=== PATIENT | female | born 1995 | race Caucasian/White ===

== ENCOUNTER → 2020-12-06 | Outpatient (CLI) | payer MEDICAID, SELFPAY | END | disposition home or self-care (01) | LOC: LABSPEC 14:54 | PROVIDERS: PCP Internal Medicine; Referring Provider Physician Assistant Surgical; Visit Provider Physician Assistant Surgical | DX: U07.1 COVID-19 (principal) | CPT/HCPCS: 87635; U0005; U0003 ==

== ENCOUNTER → 2021-09-01 | Outpatient (CLI) | payer MEDICAID, SELFPAY | END | disposition home or self-care (01) | LOC: SL 20:08 | PROVIDERS: PCP Internal Medicine; Referring Provider Psychiatry & Neurology Sleep Medicine; Visit Provider Psychiatry & Neurology Sleep Medicine | DX: G47.33 Obstructive sleep apnea (adult) (pediatric) (principal) | CPT/HCPCS: 95810 ==

== ENCOUNTER → 2022-05-25 | Outpatient (CLI) | payer MEDICAID, SELFPAY ==
--- NOTE | 2022-05-25 15:46 | CT_ITS ---
STUDY: CT MAXILLOFACIAL SINUSES REASON FOR EXAM: Female, 27 years old. CHRONIC SINUSITIS RADIATION DOSAGE (If Supplied By Facility): CTDIvol = ( 33.06 ) mGy, DLP = ( 763.60 ) mGycm TECHNIQUE: The patient was scanned in a multi detector CT scanner. High resolution axial imaging was performed without the administration of intravenous contrast material. Sagittal and coronal images were reconstructed. Individualized dose optimization techniques were used for this CT. COMPARISON: None. FINDINGS: FRONTAL SINUSES: Normal aeration, without mucosal inflammatory disease. ETHMOIDAL SINUSES: Normal aeration, without mucosal inflammatory disease. MAXILLARY SINUSES: Minimal degree of mucosal thickening along the lateral wall of the left maxillary sinus. SPHENOIDAL SINUSES: Normal aeration, without mucosal inflammatory disease. There is patency of the bilateral maxillary infundibuli with normal uncinate processes, ethmoid bullae, and hiatus semilunaris. 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 There is hypertrophy of the right inferior nasal turbinate. Normal midline nasal septum. There is patency of the bilateral nasal airways. The visualized osseous structures are normal. The visualized bilateral orbital contents are normal. CT/Sinus/Facial Bone IMPRESSION: Minimal degree of mucosal thickening along the lateral wall of the left maxillary sinus. 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 Hypertrophy of the right inferior nasal turbinate. Electronically Signed: Iker Barrientos MD at 12:54 EST ,
== END | disposition home or self-care (01) ==
LOC: CT 15:45
PROVIDERS: PCP Internal Medicine; Referring Provider Otolaryngology; Visit Provider Otolaryngology
DX: J32.0 Chronic maxillary sinusitis (principal); J34.3 Hypertrophy of nasal turbinates
CPT/HCPCS: 70486

== ENCOUNTER 2023-03-17 16:30 | Emergency (ER) | payer MEDICAID, SELFPAY ==
[2023-03-17 16:31] VITALS: BP 111/74; PULSE 105; RESP 20; TEMP 36.7; O2SAT 98; BMI 52.2
--- NOTE | 2023-03-17 16:48 | EX.ED.DYSGE1 ---
HPI History of Present Illness Chief Complaint: General Illness Informant: patient Narrative Narrative: 28-year-old female presenting to the emergency room chief complaint of generalized weakness. Patient states that she had a sinus infection for a while . She did not think anything atypical of this until when she lost her taste. So on 13 March she took a home COVID test that was positive. The next day onward she states that she has had generalized weakness has been sleeping extensively. She notes that she did have some fever last night that resolved. She notes some mild diarrhea which is also resolved. She denies any significant cough. She does note a sore throat. She notes decreased urination. She feels like she has not been eating or drinking as well. [facility] Medical History Acute bronchitis, unspecified Acute pharyngitis, unspecified Anxiety Cephalgia URI (upper respiratory infection) Home Medications buspirone 15 mg tablet 15 mg PO TID 07/15/20 [History Last Taken Unknown] sertraline 100 mg tablet 100 mg PO DAILY 07/15/20 [History Last Taken Unknown] topiramate 25 mg tablet (Topamax) 25 mg PO DAILY 07/15/20 [History Last Taken Unknown] Allergy/AdvReac Type Severity Reaction Status Date / Time No Known Allergies Allergy Verified 03/17/23 16:31 Family History Other COPD (chronic obstructive pulmonary disease) Diabetes Emphysema of lung Heart disease Surgical History History of tonsillectomy and adenoidectomy Social History Smoking Status: Current every day smoker tobacco type: cigarettes ROS ROS ED Constitutional Constitutional ED: Reports chills and fever(s); Denies weight loss Eyes Eyes: Denies change in vision or diplopia ENT ENT ED: Reports sore throat; Denies ear pain or rhinorrhea Cardiovascular Cardiovascular: Denies chest pain, orthopnea, palpitations or racing heartbeat Respiratory/Chest Respiratory/Chest: Denies cough, dyspnea or orthopnea Gastrointestinal Gastrointestinal: Reports diarrhea; Denies abdominal pain, nausea or vomiting Genitourinary Genitourinary ED: Denies dysuria, hematuria or urinary frequency Musculoskeletal Musculoskeletal: Reports arthralgias and myalgias; Denies back pain or neck pain Integumentary Denies abscess or rash Neurologic Neurologic: Reports headache(s); Denies weakness Psychiatric Psychiatric: Denies anxiety, depression, suicidal ideation or suicidal thoughts Endocrine Endocrinology: Denies polydipsia, polyphagia or polyuria Allergic/Immunologic Allergic/Immunologic ED: Denies mouth swelling, tongue swelling or urticaria EXAM Physical Exam Const Vital Signs: 03/17/23 16:31 03/17/23 17:00 Temperature 98.1 F Temperature Source Temporal Pulse Rate 105 H Respiratory Rate 20 H Respiratory Effort Normal Non-Labored Respiratory Pattern Normal Blood Pressure 111/74 Blood Pressure Mean 86 Pulse Ox 98 Oxygen Delivery Method Room Air Positive well nourished, well developed and obese General Appearance ED: well developed Nutritional Appearance: obese HEENT Reports normocephalic, head/scalp atraumatic and moist mucous membranes Eyes PERRL and EOMs intact bilaterally Neck no lymphadenopathy, supple and no JVD Resp normal respiratory effort and clear to auscultation bilaterally Cardio regular rate, regular rhythm and no murmurs GI normal to inspection, nondistended, normoactive bowel sounds and non-tender Palpation: soft Back/Spine no CVA tenderness and normal ROM Extremity normal to inspection General Extremety ED: Negative for edema General Extremity: Negative for edema Neuro oriented x3 and CN's II-XII intact bilaterally Sensorium / Orientation: alert Motor Exam: strength 5/5 throughout Psych mental status grossly normal Mood & Affect: Negative for depressed or tearful Skin no rashes or lesions noted and no wounds MDM MDM MDM Narrative Medical decision making narrative: My independent interpretation of the chest x-ray is no acute process. White count 17.6 hemoglobin 14.1. CMP shows a creatinine 1.07 with a BUN of 8. CO2 of 27. Potassium 3.7 sodium 140. Liver panel negative. test is negative patient received IV fluids and Toradol. Urinalysis was obtained. This is negative for infection. Patient's heart rate is improved on repeat examination. I think patient has a viral syndrome. White count is 17.6 nonspecific. She is not having fever. I am not seeing evidence of obvious bacterial source. Would recommend continued supportive care. Monitoring for changes worsening or concerns and return if needed History & Record Review Discussion w/independent historian: Patient Lab Data Attestation: I reviewed the patient's lab results. Labs: Laboratory Results - last 24 hr 03/17/23 03/17/23 17:00 18:45 WBC 17.6 H RBC 4.91 Hgb 14.1 Hct 42.4 MCV 86.4 MCH 28.7 MCHC 33.3 RDW Std Deviation 40.9 RDW Coeff of Kenneth 13.1 Plt Count 219 MPV 9.9 Immature Gran % (Auto) 0.900 Neut % (Auto) 85.0 H Lymph % (Auto) 7.6 L Esmeralda % (Auto) 6.2 Eos % (Auto) 0.1 Baso % (Auto) 0.2 Absolute Neuts (auto) 14.9 H Absolute Lymphs (auto) 1.34 Nucleated RBC % 0 Sodium 140 Potassium 3.7 Chloride 108 H Carbon Dioxide 27.0 Anion Gap 5 BUN 8 Creatinine 1.07 H Estim Creat Clear Calc 67.59 Est GFR (MDRD) Af Amer 78 Est GFR (MDRD) Non-Af 65 BUN/Creatinine Ratio 7.5 L Glucose 108 H Calcium 9.3 Total Bilirubin 0.50 AST 10 L ALT 22 Alkaline Phosphatase 79 Total Protein 8.2 Albumin 3.7 Globulin 4.5 H Albumin/Globulin Ratio 0.8 L Serum , Qual NEGATIVE Urine Color Yellow Urine Clarity Sl. Cloudy Urine pH 7.0 Ur Specific [place] 1.010 Urine Protein Negative Urine Glucose (UA) Normal Urine Ketones Negative Urine Occult Blood 10 H Urine Nitrite Negative Urine Bilirubin Negative Urine Urobilinogen Normal Ur Leukocyte Esterase 100 H Urine RBC 0 SEEN Urine WBC 0-5 SEEN Ur Squamous Epith Cells 0-5 SEEN Urine Bacteria 0 SEEN Urine Mucus 0 SEEN Radiography Diagnostic Testing: Clinical Impression(s) from Imaging Studies Chest X-Ray 03/17/23 17:42 IMPRESSION: Nonacute portable x-ray examination of the chest. Electronically Signed: Naun Ruano MD ([place]) at 18:16 EST , Discharge Plan Triage Chief Complaint: General Illness ED Provider: Pilo Gutierrez Dx/Rx/DC Orders Clinical Impression: Acute dehydration, COVID-19, Fatigue Prescriptions: No Action sertraline 100 mg tablet 100 mg PO DAILY topiramate [Topamax] 25 mg tablet 25 mg PO DAILY buspirone 15 mg tablet 15 mg PO TID Primary Care Provider: Care Physician,No Primary Referrals: Emiliana Hudson MD [Med Staff - Manager Instrumentation] - As Needed Disposition Disposition: Home, Self Care
[2023-03-17] MEDS: Ketorolac 30 MG/ML Syringe IV (16:53)
[2023-03-17] MEDS: 0.9% Normal Saline (1000mL) 1,000 ML 1000 ML IV (16:54)
--- OUTSIDE RECORDS SUMMARY | 2023-03-17 17:04 | XMS RPT_ITS | CCD ---
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 Name Role Phone Merlin Dalton Unavailable Unavailable PROVIDER, UNKNOWN Unavailable Unavailable UNKNOWN, PROVIDER Unavailable Unavailable Merlin Dalton Unavailable Unavailable PROVIDER, UNKNOWN Unavailable Unavailable UNKNOWN, PROVIDER Unavailable Unavailable DR RD BYRNES MD Primary Care Physician MAGED AGUSTIN Admitting Unavailable GANTA, RD LATHA Referring Unavailable GANTA, RD LATHA Consulting Unavailable MAGED AGUSTIN Attending Unavailable MAGED AGUSTIN Primary Care Unavailable PROVIDER, UNKNOWN Consulting Unavailable Rd Byrnes MD Primary Care Provider Rd Byrnes MD Primary Care Provider Rd Byrnes MD Primary Care Provider DR RD BYRNES MD Primary Care Physician GANTA, RD Primary Care Unavailable TIMMY LI JR Attending Unavailable DR RD BYRNES MD Primary Care Unavailabl e ZOILA SANTA DO Attending Unavailable DR RD BYRNES MD Primary Care Unavailabl e KESHAWN COLE MD Attending Unavail able Rd Byrnes MD Primary Care Provider GANTA, RD Primary Care Unavailable GANTA, RD Primary Care Unavailable LINDSAY NEVILLE Attending Unavailable LINDSAY NEVILLE Referring Unavailable GANTA, RD Primary Care Unavailable GANTA, RD Primary Care Unavailable MEAGAN COLLINS Referring Unavailable GANTA, RD Primary Care Unavailable GANTA, RD Primary Care Unavailable GANTA, RD Primary Care Unavailable LINDSAY NEVILLE Attending Unavailable RIKTA, RD Primary Care Unavailable LINDSAY NEVILLE Referring Unavailable GANTA, RD Primary Care Unavailable LINDSAY NEVILLE Attending Unavailable [facility] Unavailable LINDSAY NEVILLE Attending Unavailable [facility] Unavailable [facility] Unavailable LINDSAY NEVILLE Attending Unavailable TIMMY LI JR Attending Unavailable [facility] Unavailable Allergies Allergy Classification Reported Allergen(s) Allergy Type Date of Onset Reaction(s) Facility (5 sources) house dust allergenic extract; Translations: [HOUSE DUST] Drug Allergy 07-31-2022 Intolerance [facility] Work Phone: (5 sources) House Dust Mite; Translations: [HOUSE DUST MITE] Drug Allergy 07-31-2022 Intolerance [facility] Work Phone: Medications Current Medications Medication Drug Class(es) Dates Sig (Normalized) Sig (Original) acetaminophen 325 mg / butalbital 50 mg / caffeine 40 mg oral tablet (1 source) Barbiturate, Central Nervous System Stimulant, Methylxanthine Start: 05-13-2021 End: 05-16-2021 take 1 tablet by mouth every four hours as needed APAP/butalbital/c affeine 325-50-40 mg oral tablet (Fioricet) Dose = 1 tab(s), Oral, q4h, PRN as needed, X 3 day(s), # 18 tab(s), 0 Refill(s) Start Date: 05/13/21 Stop Date: 05/16/21 Status: Ordered amoxicillin 875 mg oral tablet (1 source) Penicillin-class Antibacterial Start: 03-20-2022 End: 03-27-2022 amoxicillin 875 mg oral tablet Dose : 875 mg = 1 tab(s), Oral, BID, X 7 day(s), # 14 tab(s), 0 Refill(s), 03/27/22 19:42:00 EST, Otitis media Vaping Start Date: 03/20/22 Stop Date: 03/27/22 Status: Ordered busPIRone hydrochloride 15 mg oral tablet (20 sources) Start: 01-13-2021 End: 02-28-2023 take 1 tablet by mouth three times daily busPIRone (BUSPAR) 15 mg tablet Take 1 tablet by mouth three times daily. 270 tablet 0 11/30/2022 02/28/2023 Active Completed/Discontinued Medications Medication Drug Class(es) Dates Sig (Normalized) Sig (Original) [id number] 200 actuat albuterol 0.09 mg/actuat metered dose inhaler (20 sources) beta2-Adrenergic Agonist Start: 08-03-2022 take 2 puff(s) by inhalation every four hours as needed albuterol HFA (PROVENTIL HFA, VENTOLIN HFA) 90 mcg/actuation inhaler Indications: Wheezing , URI, acute Inhale 2 Puffs as instructed every 4 hours as needed. 18 g 0 08/03/2022 Active Problems Active Problems Problem Classification Problem Date Documented Date Episodic/Chronic Anxiety disorders (20 sources) Generalized anxiety disorder; Translations: [Generalized anxiety disorder] Onset: 04-03-2016 04-03-2016 Chronic Asthma (20 sources) Unspecified asthma, uncomplicated; Translations: [Asthma, unspecified type, unspecified] Onset: 07-30-2006 03-29-2009 Chronic Diseases of white blood cells (20 sources) Leukocytosis; Translations: [Elevated white blood cell count, unspecified] Onset: 04-04-2016 04-04-2016 Chronic Disorders usually diagnosed in infancy, childhood, or adolescence (20 sources) Attention deficit hyperactivity disorder, predominantly inattentive type; Translations: [Other specified behavioral and emotional disorders with onset usually occurring in childhood and adolescence] Onset: 09-18-2012 02-02-2014 Chronic Headache; including migraine (19 sources) Migraine; Translations: [Migraine, unspecified, not intractable, without status migrainosus] Onset: 05-23-2022 Chronic Headache; including migraine (2 sources) Chronic mixed headache syndrome; Translations: [Other headache syndrome] Episodic Inflammation; infection of eye (except that caused by tuberculosis or sexually transmitteddisease) (1 source) Acute infectious conjunctivitis; Translations: [Unspecified acute conjunctivitis, left eye] Episodic Malaise and fatigue (1 source) Fatigue; Translations: [Other fatigue] Episodic Mood disorders (20 sources) Severe recurrent major depression without psychotic features; Translations: [Major depressive disorder, recurrent severe without psychotic features] Onset: 04-03-2016 04-03-2016 Chronic Nutritional deficiencies (2 sources) Vitamin D deficiency; Translations: [Vitamin D deficiency, unspecified] Onset: 08-25-2022 11-30-2022 Chronic Other aftercare (1 source) Patient encounter status; Translations: [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] Episodic Other aftercare (1 source) Other residential (current) drug therapy; Translations: [Encounter for long-term (current) use of medications] Onset: 03-01-2023 Episodic Other endocrine disorders (20 sources) Polycystic ovary; Translations: [Polycystic ovarian syndrome] Onset: 07-09-2008 02-02-2014 Chronic Other nutritional; endocrine; and metabolic disorders (20 sources) Body mass index 40+ - severely obese; Translations: [Morbid (severe) obesity due to excess calories] Onset: 11-21-2017 11-05-2020 Chronic Other nutritional; endocrine; and metabolic disorders (1 source) Morbid obesity; Translations: [Morbid (severe) obesity due to excess calories] Chronic Other nutritional; endocrine; and metabolic disorders (8 sources) Severe obesity; Translations: [Morbid (severe) obesity due to excess calories] Onset: 11-21-2017 Chronic Other upper respiratory disease (1 source) Pain in throat; Translations: [Pain in throat] Onset: 07-07-2022 Episodic Other upper respiratory infections (2 sources) Acute sinusitis; Translations: [Acute sinusitis, unspecified] Episodic Otitis media and related conditions (1 source) Otitis media; Translations: [Otitis media, unspecified, unspecified ear] Onset: 03-20-2022 Episodic Residual codes; unclassified (20 sources) Obstructive sleep apnea syndrome; Translations: [Obstructive sleep apnea (adult) (pediatric)] Onset: 03-31-2013 03-31-2013 Chronic Residual codes; unclassified (1 source) Sleep apnea; Translations: [Sleep apnea, unspecified] Chronic Residual codes; unclassified (1 source) Obstructive sleep apnea (adult) (pediatric); Translations: [CALBE on CPAP] Onset: 05-23-2022 Chronic Residual codes; unclassified (1 source) Dependence on other enabling machines and devices; Translations: [CALEB on CPAP] Onset: 05-23-2022 Chronic Residual codes; unclassified (2 sources) FH: Cardiovascular disease; Translations: [Family history of ischemic heart disease and other diseases of the circulatory system] Episodic Residual codes; unclassified (1 source) Treatment not available; Translations: [Procedure and treatment not carried out for other reasons] Episodic Unclassified (1 source) NO SHOW Unclassified (1 source) Established Patient Follow-Up Onset: 11-30-2022 Viral infection (1 source) Viral disease; Translations: [Viral infection, unspecified] Episodic Past or Other Problems Problem Classification Problem Date Documented Da te Episodic/Chronic Unclassified (1 source) 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; 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] Onset: 03-20-2022 Results Test Name Value Interpretation Reference Range Facil ity Vital Signs Date Time Vital Sign Value Performing Clinician Facility 07-07-2022 18:31-0400 Body temperature 98.6 [degF] KESHAWN COLE MD [facility] 07-07-2022 18:31-0400 Body weight 144.4 kg KESHAWN COLE MD [facility] 07-07-2022 18:31-0400 Diastolic Blood Pressure Non-Invasive 81 1 KESHAWN COLE MD [facility] 07-07-2022 18:31-0400 Heart rate 107 /min KESHAWN COLE MD [facility] 07-07-2022 18:31-0400 Respiratory rate 18 /min KESHAWN COLE MD [facility] 07-07-2022 18:31-0400 Systolic Blood Pressure Non-Invasive 120 1 KESHAWN COLE MD [facility] 04-21-2022 16:00-0500 Body temperature 98.91 [degF] Cipriano Barry APRN.MEDIATION COMMISSIONER Work Phone: [facility] 04-21-2022 16:00-0500 Body weight 146.88 kg Cipriano Barry APRN.MEDIATION COMMISSIONER Work Phone: [facility] 04-21-2022 16:00-0500 Diastolic blood pressure 74 mm[Hg] [facility] BUSHING PRESS OPERATOR.MEDIATION COMMISSIONER Work Phone: [facility] 04-21-2022 16:00-0500 Heart rate 84 /min [facility] BUSHING PRESS OPERATOR.MEDIATION COMMISSIONER Work Phone: [facility] 04-21-2022 16:00-0500 Respiratory rate 22 /min [facility] BUSHING PRESS OPERATOR.MEDIATION COMMISSIONER Work Phone: [facility] 04-21-2022 16:00-0500 SaO2% (BldA) [Mass fraction] 97 % [facility] BUSHING PRESS OPERATOR.MEDIATION COMMISSIONER Work Phone: [facility] 04-21-2022 16:00-0500 Systolic blood pressure 126 mm[Hg] [facility] BUSHING PRESS OPERATOR.MEDIATION COMMISSIONER Work Phone: [facility] 03-20-2022 19:07-0500 Body temperature 98.6 [degF] ZOILA SANTA DO [facility] 03-20-2022 19:07-0500 Body weight 152 kg ZOILA LEAT [facility] 03-20-2022 19:07-0500 Diastolic Blood Pressure Non-Invasive 73 1 ZOILA LEAT [facility] 03-20-2022 19:07-0500 Heart rate 95 /min ZOILA LEAT [facility] 03-20-2022 19:07-0500 Respiratory rate 16 /min ZOILA LEAT [facility] 03-20-2022 19:07-0500 Systolic Blood Pressure Non-Invasive 106 1 ZOILA LEAT [facility] 01-04-2022 16:16-0400 Body height 156.[address] Byrnes MD Work Phone: [facility] 01-04-2022 16:16-0400 Body temperature 98.01 [degF] Rd Byrnes MD Work Phone: [facility] 01-04-2022 16:16-0400 Body weight 143.[address] Byrnes MD Work Phone: [facility] 01-04-2022 16:16-0400 Diastolic blood pressure 72 mm[Hg] Rd Byrnes MD Work Phone: [facility] 01-04-2022 16:16-0400 Heart rate 90 /min Rd Byrnes MD Work Phone: [facility] 01-04-2022 16:16-0400 Respiratory rate 16 /min Rd Byrnes MD Work Phone: [facility] 01-04-2022 16:16-0400 SaO2% (BldA) [Mass fraction] 94 % Rd Byrnes MD Work Phone: [facility] 01-04-2022 16:16-0400 Systolic blood pressure 120 mm[Hg] Rd Byrnes MD Work Phone: [facility] 09-26-2021 17:26-0400 Body temperature 99 [degF] Candace Athy PA-C Work Phone: [facility] 09-26-2021 17:26-0400 Body weight 151.05 kg Candace Athy PA-C Work Phone: [facility] 09-26-2021 17:26-0400 Diastolic blood pressure 78 mm[Hg] Candace Athy PA-C Work Phone: [facility] 09-26-2021 17:26-0400 Heart rate 98 /min Candace Athy PA-C Work Phone: [facility] 09-26-2021 17:26-0400 Respiratory rate 16 /min Candace Athy PA-C Work Phone: [facility] 09-26-2021 17:26-0400 SaO2% (BldA) [Mass fraction] 96 % Candace Athy PA-C Work Phone: [facility] 09-26-2021 17:26-0400 Systolic blood pressure 126 mm[Hg] Candace Athy PA-C Work Phone: [facility] 09-24-2021 14:08-0400 Body temperature 98.1 [degF] Rosario Denbow PA-C Work Phone: [facility] 09-24-2021 14:08-0400 Body weight 149.23 kg Rosario Denbow PA-C Work Phone: [facility] 09-24-2021 14:08-0400 Diastolic blood pressure 80 mm[Hg] Rosario Denbow PA-C Work Phone: [facility] 09-24-2021 14:08-0400 Heart rate 88 /min Rosario Denbow PA-C Work Phone: [facility] 09-24-2021 14:08-0400 Respiratory rate 16 /min Rosario Denbow PA-C Work Phone: [facility] 09-24-2021 14:08-0400 SaO2% (BldA) [Mass fraction] 97 % Rosario Denbow PA-C Work Phone: [facility] 09-24-2021 14:08-0400 Systolic blood pressure 128 mm[Hg] Rosario Denbow PA-C Work Phone: [facility] 09-20-2021 15:55-0400 Body temperature 97.3 [degF] Malu Diana BUSHING PRESS OPERATOR.MEDIATION COMMISSIONER Work Phone: [facility] 09-20-2021 15:55-0400 Body weight 149.69 kg Malu Diana BUSHING PRESS OPERATOR.MEDIATION COMMISSIONER Work Phone: [facility] 09-20-2021 15:55-0400 Diastolic blood pressure 74 mm[Hg] Malu Diana BUSHING PRESS OPERATOR.MEDIATION COMMISSIONER Work Phone: [facility] 09-20-2021 15:55-0400 Heart rate 100 /min Malu Diana BUSHING PRESS OPERATOR.MEDIATION COMMISSIONER Work Phone: [facility] 09-20-2021 15:55-0400 Respiratory rate 18 /min Malu Diana BUSHING PRESS OPERATOR.MEDIATION COMMISSIONER Work Phone: [facility] 09-20-2021 15:55-0400 SaO2% (BldA) [Mass fraction] 97 % Malu Diana BUSHING PRESS OPERATOR.MEDIATION COMMISSIONER Work Phone: [facility] 09-20-2021 15:55-0400 Systolic blood pressure 118 mm[Hg] aMlu Diana BUSHING PRESS OPERATOR.MEDIATION COMMISSIONER Work Phone: [facility] 07-22-2021 14:09-0400 Body temperature 96.91 [degF] Timmy Li Jr., MD Work Phone: [facility] 07-22-2021 14:09-0400 Body weight 150.59 kg Timmy Li Jr., MD Work Phone: [facility] 07-22-2021 14:09-0400 Diastolic blood pressure 72 mm[Hg] Timmy Li Jr., MD Work Phone: [facility] 07-22-2021 14:09-0400 Heart rate 89 /min Timmy Li Jr., MD Work Phone: [facility] 07-22-2021 14:09-0400 Respiratory rate 18 /min Timmy Li Jr., MD Work Phone: [facility] 07-22-2021 14:09-0400 SaO2% (BldA) [Mass fraction] 97 % Timmy Li Jr., MD Work Phone: [facility] 07-22-2021 14:09-0400 Systolic blood pressure 120 mm[Hg] Timmy Li Jr., MD Work Phone: [facility] 07-15-2021 12:19-0400 Body height 156.[address] Byrnes MD Work Phone: [facility] 07-15-2021 12:19-0400 Body temperature 97.5 [degF] Rd Byrnes MD Work Phone: [facility] 07-15-2021 12:19-0400 Body weight 150.[address] Byrnes MD Work Phone: [facility] 07-15-2021 12:19-0400 Diastolic blood pressure 70 mm[Hg] Rd Byrnes MD Work Phone: [facility] 07-15-2021 12:19-0400 Heart rate 84 /min Rd Byrnes MD Work Phone: [facility] 07-15-2021 12:19-0400 Respiratory rate 14 /min Rd Byrnes MD Work Phone: [facility] 07-15-2021 12:19-0400 SaO2% (BldA) [Mass fraction] 95 % Rd Byrnes MD Work Phone: [facility] 07-15-2021 12:19-0400 Systolic blood pressure 118 mm[Hg] Rd Byrnes MD Work Phone: [facility] 05-13-2021 21:44-0500 Diastolic blood pressure 60 mm[Hg] DR YUDITH ASHER MD [facility] 05-13-2021 21:44-0500 Heart rate 70 /min DR YUDITH ASHER MD [facility] 05-13-2021 21:44-0500 Reason For Taking VItal Signs DR YUDITH ASHER MD [facility] 05-13-2021 21:44-0500 Respiratory rate 16 /min DR YUDITH ASHER MD [facility] 05-13-2021 21:44-0500 Systolic blood pressure 107 mm[Hg] DR YUDITH ASHER MD [facility] 05-13-2021 20:22-0500 Body temperature 98.06 [degF] DR YUDITH ASHER MD [facility] 05-13-2021 20:22-0500 Body weight 136.[address] YUDITH ASHER MD [facility] 05-13-2021 20:22-0500 Diastolic blood pressure 98 mm[Hg] DR YUDITH ASHER MD [facility] 05-13-2021 20:22-0500 Heart rate 74 /min DR YUDITH ASHER MD [facility] 05-13-2021 20:22-0500 Respiratory rate 16 /min DR YUDITH ASHER MD [facility] 05-13-2021 20:22-0500 Systolic blood pressure 137 mm[Hg] DR YUDITH ASHER MD [facility] 03-15-2021 23:12-0500 Body temperature 98.42 [degF] SHAE SIMMONS MD [facility] 03-15-2021 23:12-0500 Diastolic blood pressure 72 mm[Hg] SHAE SIMMONS MD [facility] 03-15-2021 23:12-0500 Heart rate 93 /min SHAE SIMMONS MD [facility] 03-15-2021 23:12-0500 Respiratory rate 20 /min SHAE SIMMONS MD [facility] 03-15-2021 23:12-0500 Systolic blood pressure 144 mm[Hg] SHAE SIMMONS MD [facility] Encounters Encounter Date Encounter Type Care Provider Facility Start: 03-01-2023 End: 03-01-[address] BYRNES Facility:[facility] Start: 02-19-2023 End: 02-19-2023 ambulatory TIMMY LI JR Facility:[facility] Start: 02-18-2023 Refill Timmy torres MD Work Phone: Sleep Procedures Date Procedure Procedure Detail Performing Clinician Start: 09-26-2021 STREP A MOLECULAR (POC) Candace Navarro PA-C Work Phone: Start: 08-11-2021 Mri brain brain stem w/o w/contrast material Timmy Li MD Work Phone: Start: 09-07-2020 Urinalysis MAGED AGUIRRE JAYLA Plan of Treatment Date Care Activity Detail Author Start: 11-06-2023 PAP TESTING PAP TESTING [facility] Start: 01-04-2023 ANNUAL PCP TEAM CHRONIC DISEASE VISIT ANNUAL PCP TEAM CHRONIC DISEASE VISIT [facility] Start: 11-30-2022 End: 01-30-2023 25-hydroxyvitamin D3 [Mass/volume] in Serum or Plasma VITAMIN D 25 HYDROXY Lab Routine Vitamin D deficiency Expected: 11/30/2022, Expires: 01/30/2023 [facility] Work Phone: Immunizations Immunization Date Immunization Notes Care Provider Xiomy gilmore 12-19-2018 influenza virus vaccine, unspecified formulation Lindsay Neville APRN.CNP Work Phone: [facility] 04-03-2016 influenza, injectabl e, quadrivalent, contains preservative Tiffany Anderson PA-C Work Phone: [facility] 02-02-2014 influenza, seasonal, injectable Tiffany Anderson PA-C Work Phone: [facility] Work Phone: 02-20-2011 influenza virus vaccine, unspecified formulation Tiffany Anderson PA-C Work Phone: [facility] 02-20-2011 Meningococcal, MCV4, unspecified conjugate formulation(groups A, C, Y and W-135) Tiffany Anderson PA-C Work Phone: [facility] 02-20-2011 tetanus toxoid, redu jyoti diphtheria toxoid, and acellular pertussis vaccine, adsorbed Tiffany Anderson PA-C Work Phone: [facility] 05-03-2007 human papilloma viru s vaccine, quadrivalent Tiffany Anderson PA-C Work Phone: [facility] Work Phone: 12-18-2006 human papilloma viru s vaccine, quadrivalent Tiffany Anderson PA-C Work Phone: [facility] Work Phone: 10-17-2006 human papilloma viru s vaccine, quadrivalent Tiffany Anderson PA-C Work Phone: [facility] Work Phone: 08-30-2000 diphtheria, tetanus toxoids and acellular pertussis vaccine Tiffany Anderson PA-C Work Phone: [facility] Work Phone: 08-30-2000 measles, mumps and rubella virus vaccine Tiffany Anderson PA-C Work Phone: [facility] Work Phone: 08-30-2000 poliovirus vaccine, inactivated Tiffany Anderson PA-C Work Phone: [facility] Work Phone: 01-01-1998 diphtheria, tetanus toxoids and acellular pertussis vaccine Tiffany Anderson PA-C Work Phone: [facility] Work Phone: 01-16-1997 diphtheria, tetanus toxoids and acellular pertussis vaccine Tiffany Anderson PA-C Work Phone: [facility] Work Phone: 01-16-1997 haemophilus influenz ae type b vaccine, HbOC conjugate Tiffany Anderson PA-C Work Phone: [facility] Work Phone: 01-16-1997 poliovirus vaccine, inactivated Tiffany Anderson PA-C Work Phone: [facility] Work Phone: 04-17-1996 diphtheria, tetanus toxoids and acellular pertussis vaccine Tiffany Adnerson PA-C Work Phone: [facility] Work Phone: 04-17-1996 haemophilus influenz ae type b vaccine, HbOC conjugate Tiffany Anderson PA-C Work Phone: [facility] Work Phone: 04-17-1996 hepatitis B vaccine, pediatric or pediatric/adolescent dosage Tiffany Anderson PA-C Work Phone: [facility] Work Phone: 04-17-1996 measles, mumps and rubella virus vaccine Tiffany Anderson PA-C Work Phone: [facility] Work Phone: 04-17-1996 poliovirus vaccine, inactivated Tiffany Anderson PA-C Work Phone: [facility] Work Phone: 1995 diphtheria, tetanus toxoids and acellular pertussis vaccine Tiffany Anderson PA-C Work Phone: [facility] Work Phone: 1995 haemophilus influenz ae type b vaccine, HbOC conjugate Tiffany Anderson PA-C Work Phone: [facility] Work Phone: 1995 hepatitis B vaccine, pediatric or pediatric/adolescent dosage Tiffany Anderson PA-C Work Phone: [facility] Work Phone: 1995 poliovirus vaccine, inactivated Tiffany Anderson PA-C Work Phone: [facility] Work Phone: 1995 hepatitis B vaccine, pediatric or pediatric/adolescent dosage Tiffany Anderson PA-C Work Phone: [facility] Work Phone: Payers Date Payer Category Payer Unknown [id number] 2017 Medicaid [employer] [facility] MEDICAID [id number] 2017-Present [phone] [address] [place] [address] Medicaid [id number] 2017 Medicaid [id number] 2017 Unknown [id number] 1995 Unknown [id number] 1995 Unknown [id number] 1995 Unknown [id number] Self-pay Unknown Social History Date Type Detail Facility Tobacco Nicotine Use: Va ping Product in Last 90 Days. [facility]igned At [facility] Start: 11-14-2016 End: 01-04-2022 Tobacco smoking status NHIS Ex-smoker [facility] History of tobacco use Cigarette Smoker C [facility] Start: 11-14-2016 End: 07-31-2022 Cigarettes smoked current (pack per day) - Reported 0.5 [facility] Start: 11-14-2016 End: 01-04-2022 Tobacco use and exposure Smokeless tobacco non-user [facility] Start: 12-16-2020 End: 11-30-2022 Alcohol intake Current drinker of alcohol (finding) [facility] Start: 06-16-2021 History SDOH Alcohol Frequency 1 [facility] Start: 06-16-2021 History SDOH Alcohol Std Drinks 98 [facility] Start: 05-28-2014 History SDOH Alcohol Comment occasionally [facility] Start: 06-16-2021 History SDOH Social Connections Phone 5 [facility] Start: 06-16-2021 History SDOH Social Connections Get Together 4 [facility] Start: 06-16-2021 History SDOH Social Connections Membership 2 [facility] Start: 06-16-2021 History SDOH Social Connections Living 8 [facility] Start: 06-16-2021 History SDOH Physical Activity DPW 3 [facility] Start: 02-24-2020 Education 17 [facility] Start: 11-14-2016 End: 01-04-2022 Tobacco Comment quit 5 months ago [facility] Start: 1995 Sex Assigned At Female [facility] Start: 07-05-2021 End: 01-04-2022 Exposure to SARS-CoV-2 (event) Not sure [facility] Work Phone: History of tobacco use Current smoker [facility] Start: 06-16-2021 End: 07-31-2022 Social connection and isolation panel [facility] Do you belong to any clubs or organizations such as anglican groups, unions, fraternal or athletic groups, or school groups? No [facility] Are you now , , , , never or living with a partner? Living with partner [facility] How often to you hav e a drink containing alcohol? Never [facility] Start: 02-17-2021 How many standard drinks containing alcohol do you have on a typical day? Patient refused [facility] Do you feel stress - tense, restless, nervous, or anxious, or unable to sleep at night because your mind is troubled all the time - these days [OSQ] Very much [facility] (I/We) worried sheri er (my/our) food would run out before (I/we) got money to buy more. Never true [facility] Start: 11-02-2018 Gender identity Identifies as female gender (finding) [facility] Functional Status Date Assessment Result Facility 07-07-2022 Functional Status ID band on, Call device within reach, Bed in low position, Wheels locked [facility] 03-20-2022 Functional Status Standard Safet y ID band on, Call device within reach, Bed in low position, Wheels locked, Upper/Half-Length side-rails up, Bedside Cart Locked, Safety level maintained [facility] Mental Status Date Assessment Result Facility 07-07-2022 Mental Status Orientation Oriented x 4 [facility] 03-20-2022 Mental Status Orientation Oriented x 4 [facility] Clinical Notes 09-18-2012 to 03-01-2023 Telephone Encounter - Bree Granados OCCA - 02/19/2023 3:09 PM ESTTelephone Encounter - Timmy Li Jr., MD - 02/19/2023 2:00 PM Lindsay Franco APRN.CNP - 11/30/2022 11:27 AM EDT Note Date & Type Note Facility 03-01-2023 Note HNO ID: [id number] Author: Lindsay Neville APRN.SWAPNA Service: ? Author Type: Nurse Practitioner Type: Progress Notes Filed: 03/07/2023 9:41 PM Note Text: FOLLOW UP - PSYCHIATRIC PROGRESS NOTE Visit Type:Virtual Visit utilizing two-way audio and video for at least a portion of the visit. Consent for virtual visit obtained verbally. Confidentiality limitations with virtual visits reviewed with the patient and guardian, if present, who have accepted the risk verbally prior to proceeding with encounter. I have communicated my name and active licensure. The patient's identity and physical location were verified at the time of this visit. Either the patient or their legal signs sales representative has been informed of the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 age Behavior: Appropriately engaged Psychomotor: No psychomotor agitation Cognition Level of Consciousness: Awake and alert. No fluctuation in wakefulness. Orientation: Grossly oriented Memory: Intact Attention/Concentration: Good Fund of Knowledge: Able to demonstrate an awareness of current events. Mood: Mildly anxious Affect: Congruent to mood Speech/Language: Appropriate tone, prosody, amy, phonetics, and syntax Thought Form: Goal-directed. No loosening of associations. Thought Content: No delusions noted or endorsed. Perceptual Disturbances: Did not appear to respond to auditory stimuli. Safety: Suicidal Ideations: No suicidal ideation, intent or plan. Homicidal Ideations: No homicidal ideation, intent or plan. Insight: Appropriate Judgment: Appropriate I spent a total of 36 minutes on the date of the service which included preparing to see the patient, ywpd-cu-egge patient care, completing clinical documentation, and counseling and educating the patient/family/caregiver, ordering medications/labs. Lindsay Neville APRN.CNP November 30, 2022 11:27 AM This note was partially generated using [employer] voice recognition system. Note was reviewed for accuracy. There may be minor misspellings or grammar miscues with [employer] voice recognition. documented in this encounter [facility] 09-21-2022 Miscellaneous Notes Patient has been identified by name and date of : Yes, Provider Date Time Patient phones for refill(s): Requested Prescriptions Pending Prescriptions Disp Refills busPIRone (BUSPAR) 15 mg tablet [Pharmacy Med Name: BUSPIRONE HCL 15 MG TABLET] 90 tablet 2 Sig: TAKE 1 TABLET BY MOUTH THREE TIMES A DAY Patient will be out of medication tomorrow 09/22/22. Date of last office visit with pcp: Date of last office visit in primary care: 05/01/22 with Lindsay Last 2 Encounter Wt Readings: Date: Wt: 08/25/2022 141.4 kg (311 lb 12.8 oz) 08/03/2022 142 kg (313 lb) Previous labs/tests for medication: Not applicable Please advise. Thank you. Hetal Maravilla RN documented in this encounter [facility] 08-25-2022 Note HNO ID: [id number] Author: CELESTE Howell Service: ? Author Type: Physician Upper Leather Sorter Type: Progress Notes Filed: 08/25/2022 12:44 PM Note Text: This note was created using [employer]. Subjective Janell Thornton is a 27 year old female. HPI 27-year-old female presents for congestion, sinus pressure, ear pain, sore throat x1 week. Patient states she started getting sore throat and congestion about a week ago. She states she feels pressure in her sinuses and pain in her sinuses and teeth. She now has bilateral ear pain. She has been seeing an ENT doctor for chronic sinus issues. She is on Mucinex and has been using some Flonase. She denies any fevers. No cough. No other complaints. PAST MEDICAL HISTORY Diagnosis Date Abdominal pain 03/27/2014 Patient has abdominal pain , had ct at which was normal, document scanned Acanthosis nigricans Acne Acute nonintractable headache 03/22/2015 Headache for the past 4 months. Not the worst headache, Not worsening. Triggers include coughing and running. The headache is in the forehead area. It is a 7/10 headache, excedrin helps it to go away Does not get a nausea. Touching and combing her hair gives her headache. Then she says everyday she gets a headache. Smokes a half pack. Never seen a neurologist. ADD (attention deficit disorder) Body piercing left lower lip, left ear Closed fracture of lower end of radius with ulna 1995 buckle fracture Croup recurrent episodes Depression Hirsutism Migraine Morbid obesity (HCC) Oligomenorrhea CALEB (obstructive sleep apnea) 2010 Other acne 08/16/2006 PCOS (polycystic ovarian syndrome) Unspecified asthma(493.90) Exercise induced Asthma PAST SURGICAL HISTORY Procedure Laterality Date ADENOIDECTOMY PRIMARY Adenoidectomy CLOSED TX ULNAR FRACTURE PROXIMAL END W/O MANJ 07/08/00 TONSILLECTOMY PRIMARY/SECONDARY Tonsillectomy ALLERGIES House Dust and House Dust Mite MEDICATIONS MUCUS RELIEF ER 600 mg 12 hr tablet amoxicillin-clavulanic acid (AUGMENTIN) 875-125 mg per tablet Take 1 tablet by mouth twice daily for 7 days. albuterol HFA (PROVENTIL HFA, VENTOLIN HFA) 90 mcg/actuation inhaler Inhale 2 Puffs as instructed every 4 hours as needed. omega-3 fatty acids 1,000 mg cap TAKE 1 CAPSULE BY MOUTH ONCE DAILY FOR 30 DAYS, THEN 2 CAPSULES ONCE DAILY. topiramate (TOPAMAX) 100 mg tablet Take 1 tablet by mouth daily at bedtime. naratriptan (AMERGE) 2.5 mg tablet Take 1 tablet by mouth as needed. 2.5 mg at onset of headache, may repeat in 4 hours if needed ergocalciferol 50,000 unit capsule (VITAMIN D2, DRISDOL) Take 1 capsule by mouth one time a week. busPIRone (BUSPAR) 15 mg tablet Take 1 tablet by mouth three times daily. sertraline (ZOLOFT) 100 mg tablet Take 2 tablets by mouth once daily. metFORMIN (GLUCOPHAGE) 500 mg tablet Take 1 tablet by mouth daily with dinner. fluticasone (FLONASE) 50 mcg/actuation nasal spray Use 2 Sprays in each nostril once daily. Rinse mouth after use. cyclobenzaprine (FLEXERIL) 10 mg tablet Take 0.5-1 tablets by mouth three times daily as needed for Muscle Spasm. albuterol (PROVENTIL) 2.5 mg /3 mL (0.083 %) nebulizer solution Use 3 mL via nebulizer every 6 hours as needed for Wheezing/Shortness of Breath. fluticasone (FLONASE) 50 mcg/actuation nasal spray Use 2 Sprays in each nostril once daily. Rinse mouth after use. CPAP FAMILY HISTORY Problem Relation Age of Onset None Mother other (migraine) Mother also father Diabetes Father Coronary Artery Disease Paternal Grandmother Diabetes Paternal Grandmother also grandfather and several aunts/uncles Hypertension Paternal Grandmother Emphysema Paternal Grandfather Diabetes Paternal Aunt Diabetes Paternal Uncle Diabetes Other great grandma other (Other) Other paternal great uncles and aunts x4 Social History Tobacco Use Smoking status: Former Packs/day: 0.50 Years: 7.00 Pack years: 3.50 Types: Cigarettes Smokeless tobacco: Never Tobacco comments: quit 5 months ago Vaping Use Vaping Use: current everyday user Substances: Nicotine Devices: Refillable tank Substance Use Topics Alcohol use: Yes Comment: occasionally Drug use: No Review of Systems Constitutional: Negative for chills and fever. HENT: Positive for congestion, ear pain, sinus pressure, sinus pain and sore throat. Respiratory: Negative for cough and shortness of breath. Cardiovascular: Negative for chest pain. Gastrointestinal: Negative for diarrhea and vomiting. Objective BP 110/78 Pulse 76 Temp 36.6 ?C (97.8 ?F) Resp 18 Wt (!) 141.4 kg (311 lb 12.8 oz) LMP (LMP Unknown) SpO2 96% BMI 57.96 kg/m? Physical Exam Vitals and nursing note reviewed. Constitutional: General: She is not in acute distress. Appearance: Normal appearance. She is not toxic-appearing. HENT: Right Ear: Ear canal normal. Tympanic membrane is erythematous and b (more content not included)... [facility] 08-03-2022 Note HNO ID: [id number] Author: RT Cathy(R) Service: ? Author Type: Senior Ios Developer Type: Progress Notes Filed: 08/03/2022 6:36 PM Note Text: Radiology Service Progress Note PATIENT NAME: Janell Thornton DATE OF SERVICE: August 03, 2022 TIME: 6:27 PM PATIENT IDENTITY VERIFICATION COMPLETED USING TWO (2) IDENTIFIERS: Name and Date of confirmed by patient verbally. FALL SCREENING: Has the patient had 2 falls in the last year or 1 fall with injury or currently using an Ambulatory Assistive Device (Walker, Cane, Wheelchair, Crutches, etc.)? No PATIENT GENDER DATA: Female. status: : No status: NO. PATIENT RELEVANT IMPLANT DATA REVIEWED: Yes RADIOLOGY DEPARTMENT: General X-ray: Exam(s) Completed: Chest X-Ray PERIPHERAL IV DATA: Not applicable SIGNED BY: RT Cathy(R) August 03, 2022 6:27 PM [facility] 08-03-2022 Note HNO ID: [id number] Author: Meagan Collins APRN.MEDIATION COMMISSIONER Service: ? Author Type: Nurse Practitioner Type: Progress Notes Filed: 08/03/2022 7:04 PM Note Text: Subjective HPI HPI Janell Thornton is a 27 year old female who presents today for CC of cough, st, congestion. This started 5 days ago. Has tried otc medication for relief. Symptoms are worsened by nothing. Risk factors hx of asthma. Denies possibility of being . nonsmoker. .Patient presents with: Cough: Pt reported chest, nasal congestion, 2wks prior Dx Strep [facility]. PAST MEDICAL HISTORY Diagnosis Date Abdominal pain 03/27/2014 Patient has abdominal pain , had ct at which was normal, document scanned Acanthosis nigricans Acne Acute nonintractable headache 03/22/2015 Headache for the past 4 months. Not the worst headache, Not worsening. Triggers include coughing and running. The headache is in the forehead area. It is a 7/10 headache, excedrin helps it to go away Does not get a nausea. Touching and combing her hair gives her headache. Then she says everyday she gets a headache. Smokes a half pack. Never seen a neurologist. ADD (attention deficit disorder) Body piercing left lower lip, left ear Closed fracture of lower end of radius with ulna 1995 buckle fracture Croup recurrent episodes Depression Hirsutism Migraine Morbid obesity (HCC) Oligomenorrhea CALEB (obstructive sleep apnea) 2010 Other acne 08/16/2006 PCOS (polycystic ovarian syndrome) Unspecified asthma(493.90) Exercise induced Asthma PAST SURGICAL HISTORY Procedure Laterality Date ADENOIDECTOMY PRIMARY Adenoidectomy CLOSED TX ULNAR FRACTURE PROXIMAL END W/O MANJ 07/08/00 TONSILLECTOMY PRIMARY/SECONDARY Tonsillectomy ALLERGIES House Dust and House Dust Mite MEDICATIONS amoxicillin (AMOXIL) 875 mg tablet Take 875 mg by mouth twice daily. (Patient not taking: Reported on 08/03/2022) omega-3 fatty acids 1,000 mg cap TAKE 1 CAPSULE BY MOUTH ONCE DAILY FOR 30 DAYS, THEN 2 CAPSULES ONCE DAILY. topiramate (TOPAMAX) 100 mg tablet Take 1 tablet by mouth daily at bedtime. naratriptan (AMERGE) 2.5 mg tablet Take 1 tablet by mouth as needed. 2.5 mg at onset of headache, may repeat in 4 hours if needed ergocalciferol 50,000 unit capsule (VITAMIN D2, DRISDOL) Take 1 capsule by mouth one time a week. busPIRone (BUSPAR) 15 mg tablet Take 1 tablet by mouth three times daily. sertraline (ZOLOFT) 100 mg tablet Take 2 tablets by mouth once daily. metFORMIN (GLUCOPHAGE) 500 mg tablet Take 1 tablet by mouth daily with dinner. fluticasone (FLONASE) 50 mcg/actuation nasal spray Use 2 Sprays in each nostril once daily. Rinse mouth after use. cyclobenzaprine (FLEXERIL) 10 mg tablet Take 0.5-1 tablets by mouth three times daily as needed for Muscle Spasm. albuterol (PROVENTIL) 2.5 mg /3 mL (0.083 %) nebulizer solution Use 3 mL via nebulizer every 6 hours as needed for Wheezing/Shortness of Breath. albuterol HFA (PROVENTIL HFA, VENTOLIN HFA) 90 mcg/actuation inhaler Inhale 2 Puffs as instructed every 4 hours as needed. (Patient not taking: Reported on 08/03/2022) fluticasone (FLONASE) 50 mcg/actuation nasal spray Use 2 Sprays in each nostril once daily. Rinse mouth after use. CPAP FAMILY HISTORY Problem Relation Age of Onset None Mother other (migraine) Mother also father Diabetes Father Coronary Artery Disease Paternal Grandmother Diabetes Paternal Grandmother also grandfather and several aunts/uncles Hypertension Paternal Grandmother Emphysema Paternal Grandfather Diabetes Paternal Aunt Diabetes Paternal Uncle Diabetes Other great grandma other (Other) Other paternal great uncles and aunts x4 Social History Tobacco Use Smoking status: Former Packs/day: 0.50 Years: 7.00 Pack years: 3.50 Types: Cigarettes Smokeless tobacco: Never Tobacco comments: quit 5 months ago Vaping Use Vaping Use: current everyday user Substances: Nicotine Devices: RefTextPowerble tank Substance Use Topics Alcohol use: Yes Comment: occasionally Drug use: No Review of Systems Constitutional: Negative for fever. HENT: Positive for congestion and sore throat. Negative for ear pain and nosebleeds. Respiratory: Positive for cough. Negative for shortness of breath and wheezing. Musculoskeletal: Negative for neck pain. Objective Blood pressure 136/82, pulse 80, temperature 36.6 ?C (97.9 ?F), temperature source Tympanic, resp. rate 18, weight (!) 142 kg (313 lb), SpO2 97 %. Physical Exam Constitutional: General: She is not in acute distress. Appearance: She is not toxic-appearing or diaphoretic. HENT: Head: Normocephalic and atraumatic. Right Ear: Hearing, tympanic membrane, ear canal and external ear normal. Left Ear: Hearing, tympanic membrane, ear canal and external ear normal. Nose: Nose normal. Mouth/Throat: Pharynx: Uvula midline. No pharyngeal swelling, oropharyngeal e (more content not included)... [facility] 07-31-2022 Note HNO ID: [id number] Author: Lindsay Neville APRN.MEDIATION COMMISSIONER Service: ? Author Type: Nurse Practitioner Type: Progress Notes Filed: 07/31/2022 2:49 PM Note Text: Patient did not log in for her virtual visit with the provider today. [facility] 07-31-2022 History of Presen t illness Narrative Patient did not log in for her virtual visit with the provider today. documented in this encounter [facility] 07-17-2022 Miscellaneous Notes Last appointment: 05/01/22 Next appointment: 07/31/22 documented in this encounter [facility] 07-07-2022 Hospital Discharg e instructions Patient Education 07/07/2022 18:40:46 Self-Care for Sore Throats Self-Care for Sore Throats Sore throats happen for many reasons, such as colds, allergies, and infections caused by viruses or bacteria. In any case, your throat becomes red and sore. Your goal for self-care is to reduce your discomfort while giving your throat a chance to heal. Moisten and soothe your throat Tips include the following: Try a sip of water first thing after waking up. Keep your throat moist by drinking 6 or more glasses of clear liquids every day. Run a cool-air humidifier in your room overnight. Avoid cigarette smoke. Suck on throat lozenges, cough drops, hard candy, ice chips, or frozen fruit-juice bars. Use the sugar-free versions if your diet or medical condition requires them. Gargle to ease irritation Gargling every hour or 2 can ease irritation. Try gargling with 1 of these solutions: 1/4 teaspoon of salt in 1/2 cup of warm water An pxtu-xgo-sxtthjg anesthetic gargle Use medicine for more relief Uabt-bvx-lzgapin medicine can reduce sore throat symptoms. Ask your pharmacist if you have questions about which medicine to use: Ease pain with anesthetic sprays. Aspirin or an aspirin substitute also helps. Remember, never give aspirin to anyone 18 or younger, or if you are already taking blood thinners. For sore throats caused by allergies, try antihistamines to block the allergic reaction. Remember: unless a sore throat is caused by a bacterial infection, antibiotics won t help you. Prevent future sore throats Prevention tips include the following: Stop smoking or reduce contact with secondhand smoke. Smoke irritates the tender throat lining. Limit contact with pets and with allergy-causing substances, such as pollen and mold. When you re around someone with a sore throat or cold, wash your hands often to keep viruses or bacteria from spreading. Don t strain your vocal cords. Contact your healthcare provider if you have: A temperature over 101 F (38.3 C) White spots on the throat Great difficulty swallowing Trouble breathing A skin rash Recent exposure to someone else with strep bacteria Severe hoarseness and swollen glands in the neck or jaw [id number] [employer]. [address] [place] [address]. All rights reserved. This information is not intended as a substitute for professional medical care. Always follow your healthcare professional's instructions. 07/07/2022 18:40:45 Medication for Pain Medication for Pain Medications can block pain, decrease inflammation, and treat related problems. More than 1 medication may be used to treat your pain. Medications may be changed as you feel better, or if they cause side effects. Medications What They Do Possible Side Effects Non-opioid NSAIDs, aspirin, acetaminophen Reduce pain chemicals at the site of pain. NSAIDs can reduce joint and soft tissue inflammation. Nausea, stomach pain, ulcers, indigestion, diarrhea, bleeding, kidney or liver problems. Opioids (morphine and similar medications often called narcotics) Remove feelings or perception of pain. Used for moderate to severe pain. Nausea, vomiting, itching, drowsiness, constipation, slowed breathing. Other Medications (corticosteroids, antinausea, antidepressant, and antiseizure medications) Reduce swelling, burning or tingling pain or limit certain side effects of pain medications such as nausea or vomiting. Your health care provider will explain the possible side effects of these medications. Anesthetics (local, injected) include lidocaine, benzocaine, and medications used by anesthesiologists Stop pain signals from reaching the brain by blocking all feeling in the treated area. Nausea, low blood pressure, fever, slowed breathing, fainting, seizures, heart attack. When to Call the Health Care Provider Call your health care provider right away (or have a family member call) if you have: Unrelieved pain Side effects, including constipation or uncontrolled nausea, that interfere with daily activities If you have extreme sleepiness or breathing problems, call 911. [phone] [employer]. [address] [place] [address]. All rights reserved. This information is not intended as a substitute for professional medical care. Always follow your healthcare professional's instructions. Follow Up Care 07/07/2022 18:28:38 With:RD BYRNES MD Address: [address] [place] [address]- When:2-4 days [facility] 07-07-2022 Note Discharge Instructions Thank you for allowing [facility] to assist you with your healthcare needs. The following is important discharge information regarding your hospital visit. Diagnosis from Today's Visit Throat pain Throat pain - Adult What to Do Next Instructions from Your Care Team No qualifying data available. Post Acute Orders No qualifying data available. You Need to Schedule the Following Appointments Follow Up with RD BYRNES MD When Within 2-4 days Where: [address] [facility] [place] [address]- Allergies NKA Medications Please ask your primary doctor or pharmacist before taking any other medication not listed, including over the counter drugs, herbal medications, vitamins and or supplements as they may interact with your home medications. What When Instructions Last Dose Unchanged albuterol Please take this list to your next doctor s visit. Bring all medications you take, including over the counter medications, herbals and other supplements with you to your doctor s visit. Patients and families are reminded to discard old lists and to update any records with all medication providers or retail pharmacies. Education Materials Self-Care for Sore Throats Sore throats happen for many reasons, such as colds, allergies, and infections caused by viruses or bacteria. In any case, your throat becomes red and sore. Your goal for self-care is to reduce your discomfort while giving your throat a chance to heal. Moisten and soothe your throat Tips include the following: Try a sip of water first thing after waking up. Keep your throat moist by drinking 6 or more glasses of clear liquids every day. Run a cool-air humidifier in your room overnight. Avoid cigarette smoke. Suck on throat lozenges, cough drops, hard candy, ice chips, or frozen fruit-juice bars. Use the sugar-free versions if your diet or medical condition requires them. Gargle to ease irritation Gargling every hour or 2 can ease irritation. Try gargling with 1 of these solutions: 1/4 teaspoon of salt in 1/2 cup of warm water An iihv-kcy-etkcmcu anesthetic gargle Use medicine for more relief Pyky-epm-fiudrit medicine can reduce sore throat symptoms. Ask your pharmacist if you have questions about which medicine to use: Ease pain with anesthetic sprays. Aspirin or an aspirin substitute also helps. Remember, never give aspirin to anyone 18 or younger, or if you are already taking blood thinners. For sore throats caused by allergies, try antihistamines to block the allergic reaction. Remember: unless a sore throat is caused by a bacterial infection, antibiotics won t help you. Prevent future sore throats Prevention tips include the following: Stop smoking or reduce contact with secondhand smoke. Smoke irritates the tender throat lining. Limit contact with pets and with allergy-causing substances, such as pollen and mold. When you re around someone with a sore throat or cold, wash your hands often to keep viruses or bacteria from spreading. Don t strain your vocal cords. Contact your healthcare provider if you have: A temperature over 101 F (38.3 C) White spots on the throat Great difficulty swallowing Trouble breathing A skin rash Recent exposure to someone else with strep bacteria Severe hoarseness and swollen glands in the neck or jaw [employer]. [address] [place] [address]. All rights reserved. This information is not intended as a substitute for professional medical care. Always follow your healthcare professional's instructions. Medication for Pain Medications can block pain, decrease inflammation, and treat related problems. More than 1 medication may be used to treat your pain. Medications may be changed as you feel better, or if they cause side effects. Medications What They Do Possible Side Effects Non-opioid NSAIDs, aspirin, acetaminophen Reduce pain chemicals at the site of pain. NSAIDs can reduce joint and soft tissue inflammation. Nausea, stomach pain, ulcers, indigestion, diarrhea, bleeding, kidney or liver problems. Opioids (morphine and similar medications often called narcotics) Remove feelings or perception of pain. Used for moderate to severe pain. Nausea, vomiting, itching, drowsiness, constipation, slowed breathing. Other Medications (corticosteroids, antinausea, antidepressant, and antiseizure medications) Reduce swelling, burning or tingling pain or limit certain side effects of pain medications such as nausea or vomiting. Your health care provider will explain the possible side effects of these medications. Anesthetics (local, injected) include lidocaine, benzocaine, and medications used by anesthesiologists Stop pain signals from reaching the brain by blocking all feeling in the treated area. Nausea, low blood pressure, fever, slowed breathing, fainting, seizures, heart attack. When to Call the Health Care Provider Call your health care provider right away (or have a family member call) if you have: Unrelieved pain Side effects, including constipation or uncontrolled nausea, that interfere with daily activities If you have extreme sleepiness or breathing problems, call 911. [employer]. [address] [place] [address]. All rights reserved. This information is not intended as a substitute for professional medical care. Always follow your healthcare professional's instructions. Additional Information VACCINATE! IT SAVES LIVES! Members of the community who have not yet received the COVID-19 vaccine and would like to receive it can visit one of [facility] vaccine clinics. There are many vaccine clinic locations within the [facility]. For locations and available times, please visit [email or web address] It is important to note that some COVID mobile vaccine clinics are held outdoors and may be canceled in rainy or stormy conditions. To learn more about pediatric vaccinations (ages 5-11), we invite you to visit the [facility] webpage. [email or web address] To learn more about the COVID-19 vaccine, we invite you to visit the CDC website for a list of frequently asked questions. https://www.cdc.gov/coronavirus/ 2019-ncov/vaccines/faq.html [facility] Patient Portal Access Instructions: Stay connected with your healthcare team and access your personal medical information anytime with the [facility] Patient Portal. If you would like a full copy of your medical records please contact the [facility] Medical Records Department Sunday through Sunday between 8a.m. and 4:30p.m. Please follow the directions below to access the portal: 1.Access the email account you provided upon registration to the [facility].2.Look for an invitation email from [facility].3.Open the email and access the invitation link: Accept Invitation to [facility]4.Fill in the required bess to create your account. Sign into [email or web address] with your username and password that you created in the above steps to stay up to date. You can then view a summary of results, a summary of your visits, and the ability to download your summaries to your computer or send the information securely to a physician. Remember that your healthcare information is confidential, so carefully consider who you will allow to register on the [facility] Patient Portal for access to your information. You can also access the [facility] Patient Portal on the [employer]. Simply click on Health Records under Health Data and then click on the [facility] logo. HOW TO SAFELY DISPOSE OF PRESCRIPTION MEDICATIONS Please use one of the following methods to safely dispose of your unused medications. 1.Use a drug disposal kit: the drug disposal pouch allows you to safely discard your old and unused drugs. Ask your nurse to give you one when you are discharged.2.Visit a local take-back location: Many local pharmacies and police departments have programs that collect old and unwanted prescription drugs. Call your local pharmacy or go to http://bit.[employer]/8W4Xk8g to find one close to you.3.Make use of household items: Use cat litter or old coffee grounds to dispose medications if other options are not available. Mix your drugs with these household products, seal them in an airtight container and throw it into the garbage. Call [facility]: [phone] to be sure your drugs can be disposed of in this way. Some medicines may require a different approach.4.Never flush your medications down the toilet. IF YOU HAVE BEEN PRESCRIBED AN OPIOIDS FOR PAIN If you have been prescribed an opioid (such as hydrocodone, oxycodone or morphine), it is critical to understand the possible side effects and risks of opioid pain medications. Even when taken as directed, opioids can have several side effects including: Tolerance, meaning you might need to take more of a medication for the same pain relief. Nausea, vomiting and/or constipation. Sleepiness, dizziness, dry mouth, confusion, depression or itching. Physical dependence, meaning you have withdrawal symptoms when a medication is stopped ? this can develop within a few days. KNOW YOUR RESPONSIBILITIES It is important to know exactly how much and how often to take the opioid pain medications you are prescribed. Never take opioids in higher amounts or more often than prescribed. Do not combine opioids with alcohol or other drugs that cause drowsiness, such as benzodiazepines, also known as benzos, including diazepam and alprazolam, muscle relaxants or sleep aids. Never sell or share prescription opioids. This is illegal. Store opioids in a secure place and out of reach of others (including children, family, friends and visitors). The last page(s) of this document has been signed and retained as a CHART COPY Signatures Patient Education Materials Self-Care for Sore Throats Medication for Pain Medication Leaflets My discharge plan and instructions have been reviewed and explained to me and I,JANELL THORNTON understand my current condition and have read and understand these discharge instructions. I have received a written copy of the plan/instructions. If I have questions, I am aware that I should contact my doctor. Patient/Data Communications Software Consultant Signature: Date/Time: Relationship to Patient: Witness Name/Signature: Date/Time: [facility] 05-23-2022 Note HNO ID: [id number] Author: Timmy Li Jr., MD Service: ? Author Type: Physician Type: Progress Notes Filed: 05/23/2022 12:50 PM Note Text: ESTABLISHED PATIENT VISIT (Virtual Visit with Video) For this virtual visit, the patient has been identified by name and (MRN and photo identification as well if available). Those taking part in visit: Patient and physician via [employer]. Consent for this visit received from patient. I have communicated my name and active licensure. The patient's identity and physical location were verified at the time of this visit. Either the patient or their legal signs sales representative has been informed of the risks and benefits of -- and alternatives to -- treatment through a remote evaluation and consents to proceed with the evaluation remotely. HISTORY OF PRESENT ILLNESS: Janell Thornton is a 27 year old female, with a past medical history significant for and per last office visit of 07/22/21: 1. Intractable migraine without aura and without status migrainosus - ICD9: 346.11, ICD10: G43.019 (primary diagnosis) Patient with intractable migraines, with initial migraines occurring approximately 9 years ago. Initially would occur now and then, but now daily with no obvious provoking factor for change in frequency including no endorsement of OTC med overuse. Given a family history of cerebral aneurysm feel appropriate for head imaging and will order MRI brain wwo contrast, given the change in pattern of headache. Otherwise, non-focal neuro exam. For now will continue to treat with current meds but increase dosing: -Will not treat with medrol dav given prior use of steroids with no influence on headaches. -For preventative will increase Topamax to 75mg QHS this week and then further increase to 100mg QHS the following week. Reviewed SE and ADRs with pt including interaction with OCPs and impact on development. Pt has tolerated the medication thus far. Pt will contact us in about 3 weeks at such time will determine further changes to the medication based on the response to the increased dose. -For abortive therapy will continue with naratriptan. Uncertain the response pt had with use of Maxalt as tolerated previously. Possible increase in 5ht given pt on Zoloft and Buspar as well. Note pt also with known depression, and mood swing may have been unrelated to medications. 3. CALEB (obstructive sleep apnea) - ICD9: 327.23, ICD10: G47.33 Prior sleep study negative as above, but pt endorsing snoring, witnessed apneas, dry mouth in AM, EDS, AM headaches. Pt feels symptoms worsening. Thus, will repeat PSG to evaluate for CALEB. Previously dx of CALEB when using AASM guidelines but last sleep study with CMS guidelines unremarkable including normal overall RDI. That said REM indices were elevated. Risk factors of obesity and PCOS. - POLYSOMNOGRAM (PSG) 4. Family history of ischemic heart disease and other diseases of the circulatory system - ICD9: V17.49, ICD10: Z82.49 MRI brain as above. MRI was completed on 08/11/21 and unremarkable for cause of headaches. Per rad report: NORMAL MRI BRAIN WITHOUT AND WITH CONTRAST. NO EVIDENCE OF AN INTRACRANIAL MASS. VISUALIZED ARTERIES ARE NORMAL IN APPEARANCE. Sleep study was perofrmed in 08/2021 showing severe REM related CALEB with overall AHI in the mild range. Unclear as to why pt has not follow up. States headaches are not too bad. States migraines are at bay occurring about once per month. The other headaches (stress related or with brushing hair) - usually last an hour with pt not taking meds and these occurring about twice weekly. Currently on Topamax 100mg QHS. Reports no side effect. Has not used Triptran since last visit. Instead will often place a cold water bottle on her head. Only other change in medications was vitamin supplements. Not using any OTC meds. Reports PAP machine is great. Sleeps so much better. I do not have an objective data download for review. States when she forgot to use it one week she could tell a difference - head hurting bad, having a mood swings. Pt states DME sending replacement equipment regularly. Note her machine does not work with [employer] and will need to take card to DME. No mask complaints. No pressure intolerance. Sleep Questionnaire Data Depression Screening 01/30/2022 03/21/2022 05/01/2022 PHQ-2 Score 0 6 2 PHQ-9 Score 5 21 7 MARII-2 Total Score 2 6 2 MARII-7 Total Score 6 18 8 PED PHQ-9 01/30/2022 03/21/2022 05/01/2022 Little interest or pleasure in doing things Not at all Nearly every day Several days Feeling down, depressed, or hopeless Not at all Nearly every day Several days Trouble falling or staying asleep, or sleeping too much Several days Nearly every day Several days Feeling tired or having little energy More than half the days Nearly every day Nearly every day Poor appetite or overeating Not at all Nearly every day Not at all Feeling bad abou (more content not included)... [facility] 05-23-2022 History of Presen t illness Narrative ESTABLISHED PATIENT VISIT (Virtual Visit with Video) For this virtual visit, the patient has been identified by name and (MRN and photo identification as well if available). Those taking part in visit: Patient and physician via [employer]. Consent for this visit received from patient. I have communicated my name and active licensure. The patient's identity and physical location were verified at the time of this visit. Either the patient or their legal signs sales representative has been informed of the risks and benefits of -- and alternatives to -- treatment through a remote evaluation and consents to proceed with the evaluation remotely. HISTORY OF PRESENT ILLNESS: Janell Thornton is a 27 year old female, with a past medical history significant for and per last office visit of 07/22/21: 1. Intractable migraine without aura and without status migrainosus - ICD9: 346.11, ICD10: G43.019 (primary diagnosis) Patient with intractable migraines, with initial migraines occurring approximately 9 years ago. Initially would occur now and then, but now daily with no obvious provoking factor for change in frequency including no endorsement of OTC med overuse. Given a family history of cerebral aneurysm feel appropriate for head imaging and will order MRI brain wwo contrast, given the change in pattern of headache. Otherwise, non-focal neuro exam. For now will continue to treat with current meds but increase dosing: -Will not treat with medrol dav given prior use of steroids with no influence on headaches. -For preventative will increase Topamax to 75mg QHS this week and then further increase to 100mg QHS the following week. Reviewed SE and ADRs with pt including interaction with OCPs and impact on development. Pt has tolerated the medication thus far. Pt will contact us in about 3 weeks at such time will determine further changes to the medication based on the response to the increased dose. -For abortive therapy will continue with naratriptan. Uncertain the response pt had with use of Maxalt as tolerated previously. Possible increase in 5ht given pt on Zoloft and Buspar as well. Note pt also with known depression, and mood swing may have been unrelated to medications. 3. CALEB (obstructive sleep apnea) - ICD9: 327.23, ICD10: G47.33 Prior sleep study negative as above, but pt endorsing snoring, witnessed apneas, dry mouth in AM, EDS, AM headaches. Pt feels symptoms worsening. Thus, will repeat PSG to evaluate for CALEB. Previously dx of CALEB when using AASM guidelines but last sleep study with CMS guidelines unremarkable including normal overall RDI. That said REM indices were elevated. Risk factors of obesity and PCOS. - POLYSOMNOGRAM (PSG) 4. Family history of ischemic heart disease and other diseases of the circulatory system - ICD9: V17.49, ICD10: Z82.49 MRI brain as above. MRI was completed on 08/11/21 and unremarkable for cause of headaches. Per rad report: NORMAL MRI BRAIN WITHOUT AND WITH CONTRAST. NO EVIDENCE OF AN INTRACRANIAL MASS. VISUALIZED ARTERIES ARE NORMAL IN APPEARANCE. Sleep study was perofrmed in 08/2021 showing severe REM related CALEB with overall AHI in the mild range. Unclear as to why pt has not follow up. States headaches are not too bad. States migraines are at bay occurring about once per month. The other headaches (stress related or with brushing hair) - usually last an hour with pt not taking meds and these occurring about twice weekly. Currently on Topamax 100mg QHS. Reports no side effect. Has not used Triptran since last visit. Instead will often place a cold water bottle on her head. Only other change in medications was vitamin supplements. Not using any OTC meds. Reports PAP machine is great. Sleeps so much better. I do not have an objective data download for review. States when she forgot to use it one week she could tell a difference - head hurting bad, having a mood swings. Pt states DME sending replacement equipment regularly. Note her machine does not work with wifi and will need to take card to DME. No mask complaints. No pressure intolerance. Sleep Questionnaire Data Depression Screening 01/30/2022 03/21/2022 05/01/2022 PHQ-2 Score 0 6 2 PHQ-9 Score 5 21 7 MARII-2 Total Score 2 6 2 MARII-7 Total Score 6 18 8 PED PHQ-9 01/30/2022 03/21/2022 05/01/2022 Little interest or pleasure in doing things Not at all Nearly every day Several days Feeling down, depressed, or hopeless Not at all Nearly every day Several days Trouble falling or staying asleep, or sleeping too much Several days Nearly every day Several days Feeling tired or having little energy More than half the days Nearly every day Nearly every day Poor appetite or overeating Not at all Nearly every day Not at all Feeling bad about yourself - or that you are a failure or have let yourself or your family down Several days Nearly every day Several days Trouble concentrating on things, such as reading the newspaper or watching television Several days More than half the days Not at all Moving or speaking so slowly that other people could have noticed. Or the opposite - being so fidgety or restless that you have been moving around a lot more than usual Not at all Not at all Not at all Thoughts that you would be better off , or of hurting yourself in some way Not at all Several days Not at all If you checked off any problems, how difficult have these problems made it for you to do your work, take care of things at home, or get along with other people? Not difficult at all Extremely difficult Somewhat difficult PHQ-9 Score 5 (Mild Depression) 21 (Severe Depression) 7 (Mild Depression) REVIEW OF SYSTEMS GENERAL:No weight loss, malaise or fevers. HEENT: No changes in hearing or vision, no nose bleeds or other nasal problems NECK:Negative for lumps, goiter, pain and significant neck swelling RESPIRATORY: Negative for cough, wheezing or shortness of breath. CARDIOVASCULAR: Negative for chest pain, leg swelling or palpitations. GASTROINTESTINAL: Negative for abdominal discomfort, blood in stools or black stools or change in bowel habits GENITOURINARY: No history of dysuria, frequency or incontinence MUSCULOSKELETAL: Negative for joint pain or swelling, back pain or muscle pain. NEUROLOGIC:Negative for focal numbness or weakness, and dizziness or syncope, vision changes, speech/languag changes - EXCEPT that as per HPI above. SKIN:Negative for lesions, rash, and itching. LAB/IMAGING: Those performed since patient's last visit have been reviewed. WBC (k/uL) Date Value 09/27/2020 11.94 (H) RBC (m/uL) Date Value 09/27/2020 4.78 Hemoglobin (g/dL) Date Value 09/27/2020 13.8 Hematocrit (%) Date Value 09/27/2020 40.4 MCV (fL) Date Value 09/27/2020 84.5 MCH (pG) Date Value 09/27/2020 28.9 MCHC (g/dL) Date Value 09/27/2020 34.2 RDW-CV (%) Date Value 09/27/2020 13.8 Platelet Count (k/uL) Date Value 09/27/2020 274 MPV (fL) Date Value 09/27/2020 10.5 Glucose (mg/dL) Date Value 12/02/2021 107 (H) BUN (mg/dL) Date Value 12/02/2021 8 Creatinine (mg/dL) Date Value 12/02/2021 0.99 (H) Sodium (mmol/L) Date Value 12/02/2021 139 Potassium (mmol/L) Date Value 12/02/2021 3.6 (L) Chloride (mmol/L) Date Value 12/02/2021 102 CO2 (mmol/L) Date Value 12/02/2021 22 Protein, Total (g/dL) Date Value 12/02/2021 8.0 Albumin (g/dL) Date Value 12/02/2021 4.5 Calcium, Total (mg/dL) Date Value 12/02/2021 9.5 Alkaline Phosphatase (U/L) Date Value 12/02/2021 89 Bilirubin, Total (mg/dL) Date Value 12/02/2021 0.4 AST (U/L) Date Value 12/02/2021 25 ALT (U/L) Date Value 12/02/2021 40 (H) MEDICATIONS: topiramate (TOPAMAX) 100 mg tablet TAKE 1 TABLET BY MOUTH EVERYDAY AT BEDTIME ergocalciferol 50,000 unit capsule (VITAMIN D2, DRISDOL) Take 1 capsule by mouth one time a week. busPIRone (BUSPAR) 15 mg tablet Take 1 tablet by mouth three times daily. sertraline (ZOLOFT) 100 mg tablet Take 2 tablets by mouth once daily. omega-3 fatty acids 1,000 mg cap Take 1 capsule by mouth once daily for 30 days, THEN 2 capsules once daily. metFORMIN (GLUCOPHAGE) 500 mg tablet Take 1 tablet by mouth daily with dinner. fluticasone (FLONASE) 50 mcg/actuation nasal spray Use 2 Sprays in each nostril once daily. Rinse mouth after use. naratriptan (AMERGE) 2.5 mg tablet Take 1 tablet by mouth as needed. 2.5 mg at onset of headache, may repeat in 4 hours if needed (Patient not taking: Reported on 07/22/2021 ) cyclobenzaprine (FLEXERIL) 10 mg tablet Take 0.5-1 tablets by mouth three times daily as needed for Muscle Spasm. albuterol (PROVENTIL) 2.5 mg /3 mL (0.083 %) nebulizer solution Use 3 mL via nebulizer every 6 hours as needed for Wheezing/Shortness of Breath. albuterol HFA (PROVENTIL HFA, VENTOLIN HFA) 90 mcg/actuation inhaler Inhale 2 Puffs as instructed every 4 hours as needed. fluticasone (FLONASE) 50 mcg/actuation nasal spray Use 2 Sprays in each nostril once daily. Rinse mouth after use. CPAP HISTORIES PAST MEDICAL HISTORY Diagnosis Date Abdominal pain 03/27/2014 Patient has abdominal pain , had ct at which was normal, document scanned Acanthosis nigricans Acne Acute nonintractable headache 03/22/2015 Headache for the past 4 months. Not the worst headache, Not worsening. Triggers include coughing and running. The headache is in the forehead area. It is a 7/10 headache, excedrin helps it to go away Does not get a nausea. Touching and combing her hair gives her headache. Then she says everyday she gets a headache. Smokes a half pack. Never seen a neurologist. ADD (attention deficit disorder) Body piercing left lower lip, left ear Closed fracture of lower end of radius with ulna 1995 buckle fracture Croup recurrent episodes Depression Hirsutism Migraine Morbid obesity (HCC) Oligomenorrhea CALEB (obstructive sleep apnea) 2011 Other acne 08/16/2006 PCOS (polycystic ovarian syndrome) Unspecified asthma(493.90) Exercise induced Asthma FAMILY HISTORY Problem Relation Age of Onset None Mother other (migraine) Mother also father Diabetes Father Coronary Artery Disease Paternal Grandmother Diabetes Paternal Grandmother also grandfather and several aunts/uncles Hypertension Paternal Grandmother Emphysema Paternal Grandfather Diabetes Paternal Aunt Diabetes Paternal Uncle Diabetes Other great grandma other (Other) Other paternal great uncles and aunts x4 SOCIAL HISTORY Social History Tobacco Use Smoking status: Former Packs/day: 0.50 Years: 7.00 Pack years: 3.50 Types: Cigarettes Smokeless tobacco: Never Tobacco comments: quit 5 months ago Vaping Use Vaping Use: current everyday user Substances: Nicotine Devices: SunnyBump tank Substance Use Topics Alcohol use: Yes Comment: occasionally Drug use: No PHYSICAL EXAMINATION LMP (LMP Unknown) GENERAL EXAM: General appearance: NAD, pleasant. HEENT: NC/AT, nasal congestion absent, membranes moist. NECK: ROM nml. Lungs: No audible cough, wheeze, sob. NEUROLOGICAL EXAM: General: Awake, alert, oriented x3 (person,place,time), speech fluent, no dysarthria; comprehension, naming, repetition intact. CN: EOMI, face symmetric, hearing is intact, palate and tongue movements are intact and symmetric. SCM and trapezius strength symmetric. Motor: FOOTE equal and symmetric. Gait: Stable. Assessment and Plan: ASSESSMENT/PLAN: 1. CALEB on CPAP - ICD9: 327.23, V46.8, ICD10: G47.33, Z99.89 (primary diagnosis) Patient subjectively doing well on PAP, using nightly and for >4 hours per night. Unfortunately no PAP data download available for review at this time. Patient states she will take SD card to DME ([facility]) and will update us once she does so. In meantime, encouraged continued compliance. Reminded need to clean and replace equipment regularly. Advised pt not to drive or operate heavy machinery when sleepy. Encouraged weight loss. 2. Migraine without aura and without status migrainosus, not intractable - ICD9: 346.10, ICD10: G43.009 Overall headaches much improve since increasing Topamax to 100mg QHS. No side effects. Still some breakthrough headaches. Discussed increasing Topamax to 150mg QHS, but pt hesitant to do so. Thus will reevaluate in 3 months. For now continue Topamax 100mg QHS and triptan as above (rarely used) prn. Refills provided. Advised pt to continue to avoid OTC. Reviewed SE and ADRs of Rx'd meds with pt. Follow up 3 months or sooner prn. Timmy Li MD I spent a total of 30+ minutes on the date of the service which included preparing to see the patient, [id number] patient care, completing clinical documentation, obtaining and/or reviewing separately obtained history, performing a medically appropriate examination, counseling and educating the patient/family/caregiver, ordering medications, tests, or procedures, and communicating results to the patient/family/caregiver. documented in this encounter [facility] 05-22-2022 Miscellaneous Notes Called and let the patient know. Brenda Tovar MA AGATA Gutierrez ordered, thank you Please see pended medication. Pharmacy linked. Last ordered 02/16/2022. Brenda Tovar MA documented in this encounter [facility] 05-16-2022 Note HNO ID: [id number] Author: Lindsay Neville APRN.SWAPNA Service: ? Author Type: Nurse Practitioner Type: Progress Notes Filed: 05/16/2022 9:04 AM Note Text: Lab work reviewed for vitamin D deficiency. Vitamin D supplement sent for the patient to start. [facility] 05-16-2022 History of Presen t illness Narrative Lab work reviewed for vitamin D deficiency. Vitamin D supplement sent for the patient to start. documented in this encounter [facility] 05-10-2022 Miscellaneous Notes Spoke with [facility] and requested 90 day pap download. Waiting for report to be faxed Felicitas Morton LPN documented in this encounter [facility] 05-01-2022 Note HNO ID: [id number] Author: Lindsay Neville APRN.MEDIATION COMMISSIONER Service: ? Author Type: Nurse Practitioner Type: Progress Notes Filed: 05/01/2022 2:33 PM Note Text: PSYC FOLLOW UP - PSYCHIATRIC PROGRESS NOTE DIAGNOSIS: MDD, recurrent, in partial remission Generalized Anxiety Disorder OCD GAF: -80-71 If symptoms are present, they are transient and expectable reactions to psychosocial stressors TREATMENT PLAN: Continue Buspar and Zoloft at the same dose. Utilize Valium as needed for overwhelming episodes of anxiety or panic. Restart [place] 3 fatty acid supplement. Reminded to complete Vitamin D lab work. Follow up in 3 months. The effects and side effects of all the medications were reviewed in detail with the patient. She is in agreement with the treatment plan and aware to reach out with any questions, concerns, or worsening of symptoms prior to the next appointment. PDMP report was reviewed and found to be appropriate without any signs of misuse or diversion. CC: Follow up regarding mood and anxiety With the patient consent, visit was performed virtually. HPI: Janell Thornton is a 27 year old Female with a history of MDD, MARII, and OCD presenting today for follow-up. Date of last visit: 03/28/2022 Plan from last visit: Start light therapy to help with her mood concerns related to SAD. Incorporate [place] 3 fatty acid supplement to help with her mood and anxiety. Complete Vitamin D lab work. Continue Zoloft and Buspar at the same dose. Incorporate exercise and yoga in her routine. Reschedule her intake appointment at the counseling center. Follow up in 4 weeks as scheduled. Today Janell shares that she has been feeling better. She is glad that she is not working her old job. She is helping more with her sister's children. She only took [place] 3 fatty acids for 2 days, but then forgot about it. She is motivated to restart it. Her appetite is better and she is on a better eating schedule. Denies any concerns with her sleep. She has not started the light therapy. She has been getting out of the house and enjoying the sunshine. She has not started a new job but is donating plasma. Denies panic attacks. She has to still complete her vitamin D lab work. She has been walking with a friend. They take the dogs and their family members to the park. She has been concerned about ear infections and is planning on seeing an ENT Interval Progress: Improved Risks and benefits of the medication, including any black box warnings, were discussed with the patient. Social History: See HPI PATIENT DATA: Generalized Anxiety Disorder Scale (MARII-7) MARII - 7 SCORES 01/30/2022 03/21/2022 05/01/2022 MARII-7 Score 6 18 8 (0-4) minimal anxiety, (5-9) mild anxiety, (10-14) moderate anxiety, (15-21) severe anxiety Patient Health Questionnaire (PHQ-9) PHQ-9 01/30/2022 03/21/2022 05/01/2022 Score 5 21 7 (0-4) minimal depression, (5-9) mild depression, (10-14) moderate depression, (15-19) moderately severe depression, (20-27) severe depression ROS: General: Negative for fever, malaise, unintentional weight loss HEENT: Negative for recent changes in vision or hearing, no nasal drainage Respiratory: Negative for cough, wheezing or SOB Cardiovascular: Negative for chest pain GI: Negative for nausea, vomiting, change in bowel habits MUSCULOSKELETAL: Negative for acute back or joint pain SKIN: Negative for rash NEURO: Negative for headaches, seizures, focal neurological deficits All other systems negative. VITAL SIGNS: BP Temp Pulse Resp SpO2 MENTAL STATUS EXAMINATION: Appearance: Appropriately groomed, appears stated age Behavior: Appropriately engaged Psychomotor: No psychomotor agitation Cognition Level of Consciousness: Awake and alert. No fluctuation in wakefulness. Orientation: Grossly oriented Memory: Intact Attention/Concentration: Good Fund of Knowledge: Able to demonstrate an awareness of current events. Mood: Euthymic Affect: Congruent to mood Speech/Language: Appropriate tone, prosody, amy, phonetics, and syntax Thought Form: Goal-directed. No loosening of associations. Thought Content: No delusions noted or endorsed. Perceptual Disturbances: Did not appear to respond to auditory stimuli. Safety: Suicidal Ideations: No suicidal ideation, intent or plan. Homicidal Ideations: No homicidal ideation, intent or plan. Insight: Appropriate Judgment: Appropriate I spent a total of 28 minutes on the date of the service which included preparing to see the patient, [id number] patient care, completing clinical documentation, and counseling and educating the patient/family/caregiver, ordering medications/labs. Lindsay Neville, KARMEN.MEDIATION COMMISSIONER May 01, 2022 2:11 PM This note was partially generated using [employer] voice recognition system. Note was reviewed for accuracy. There may be minor misspellings or grammar miscues with [employer] vo (more content not included)... [facility] 05-01-2022 History of Presen t illness Narrative Images from the original note were not included. PSYC FOLLOW UP - PSYCHIATRIC PROGRESS NOTE DIAGNOSIS: MDD, recurrent, in partial remission Generalized Anxiety Disorder OCD GAF: -80-71 If symptoms are present, they are transient and expectable reactions to psychosocial stressors TREATMENT PLAN: Continue Buspar and Zoloft at the same dose. Utilize Valium as needed for overwhelming episodes of anxiety or panic. Restart [place] 3 fatty acid supplement. Reminded to complete Vitamin D lab work. Follow up in 3 months. The effects and side effects of all the medications were reviewed in detail with the patient. She is in agreement with the treatment plan and aware to reach out with any questions, concerns, or worsening of symptoms prior to the next appointment. PDMP report was reviewed and found to be appropriate without any signs of misuse or diversion. CC: Follow up regarding mood and anxiety With the patient consent, visit was performed virtually. HPI: Janell Thornton is a 27 year old Female with a history of MDD, MARII, and OCD presenting today for follow-up. Date of last visit: 03/28/2022 Plan from last visit: Start light therapy to help with her mood concerns related to SAD. Incorporate [place] 3 fatty acid supplement to help with her mood and anxiety. Complete Vitamin D lab work. Continue Zoloft and Buspar at the same dose. Incorporate exercise and yoga in her routine. Reschedule her intake appointment at the counseling center. Follow up in 4 weeks as scheduled. Today Janell shares that she has been feeling better. She is glad that she is not working her old job. She is helping more with her sister's children. She only took [place] 3 fatty acids for 2 days, but then forgot about it. She is motivated to restart it. Her appetite is better and she is on a better eating schedule. Denies any concerns with her sleep. She has not started the light therapy. She has been getting out of the house and enjoying the sunshine. She has not started a new job but is donating plasma. Denies panic attacks. She has to still complete her vitamin D lab work. She has been walking with a friend. They take the dogs and their family members to the park. She has been concerned about ear infections and is planning on seeing an ENT Interval Progress: Improved Risks and benefits of the medication, including any black box warnings, were discussed with the patient. Social History: See HPI PATIENT DATA: Generalized Anxiety Disorder Scale (MARII-7) MARII - 7 SCORES 01/30/2022 03/21/2022 05/01/2022 MARII-7 Score 6 18 8 (0-4) minimal anxiety, (5-9) mild anxiety, (10-14) moderate anxiety, (15-21) severe anxiety Patient Health Questionnaire (PHQ-9) PHQ-9 01/30/2022 03/21/2022 05/01/2022 Score 5 21 7 (0-4) minimal depression, (5-9) mild depression, (10-14) moderate depression, (15-19) moderately severe depression, (20-27) severe depression ROS: General: Negative for fever, malaise, unintentional weight loss HEENT: Negative for recent changes in vision or hearing, no nasal drainage Respiratory: Negative for cough, wheezing or SOB Cardiovascular: Negative for chest pain GI: Negative for nausea, vomiting, change in bowel habits MUSCULOSKELETAL: Negative for acute back or joint pain SKIN: Negative for rash NEURO: Negative for headaches, seizures, focal neurological deficits All other systems negative. VITAL SIGNS: BP Temp Pulse Resp SpO2 MENTAL STATUS EXAMINATION: Appearance: Appropriately groomed, appears stated age Behavior: Appropriately engaged Psychomotor: No psychomotor agitation Cognition Level of Consciousness: Awake and alert. No fluctuation in wakefulness. Orientation: Grossly oriented Memory: Intact Attention/Concentration: Good Fund of Knowledge: Able to demonstrate an awareness of current events. Mood: Euthymic Affect: Congruent to mood Speech/Language: Appropriate tone, prosody, amy, phonetics, and syntax Thought Form: Goal-directed. No loosening of associations. Thought Content: No delusions noted or endorsed. Perceptual Disturbances: Did not appear to respond to auditory stimuli. Safety: Suicidal Ideations: No suicidal ideation, intent or plan. Homicidal Ideations: No homicidal ideation, intent or plan. Insight: Appropriate Judgment: Appropriate I spent a total of 28 minutes on the date of the service which included preparing to see the patient, hvqt-wh-clve patient care, completing clinical documentation, and counseling and educating the patient/family/caregiver, ordering medications/labs. Lindsay Neville APRN.CNP May 01, 2022 2:11 PM This note was partially generated using [employer] voice recognition system. Note was reviewed for accuracy. There may be minor misspellings or grammar miscues with [employer] voice recognition. documented in this encounter [facility] 04-22-2022 Miscellaneous Notes Patient notified of results, verbalized understanding of instructions given. Fernanda Hernandez MA Negative for flu and covid please notify thank you documented in this encounter [facility] 04-21-2022 Note HNO ID: [id number] Author: Cipriano Barry APRN.CNP Service: ? Author Type: Nurse Practitioner Type: Progress Notes Filed: 04/21/2022 4:24 PM Note Text: Subjective HPI Nontoxic-appearing female presents urgent care chief complaint URI-like symptoms. Duration of symptoms 3 days. Associated symptoms sore throat, nasal congestion, nasal discharge and nonproductive cough. Patient denies the use of any dpfq-dvw-pibrwgy medications or home remedies for symptom management. Patient states recent sick contacts with similar signs and symptoms. Patient denies any productive cough, fever, chest pain, shortness of breath, pleuritic pain, rash, abdominal pain, nausea, vomiting or change in bowel or bladder habit. Past medical history prescription medication use allergies reviewed denies chance of is not breast-feeding. .Patient presents with: Nasal Congestion: Pt reported cough, nasal congestion, x3 days. PAST MEDICAL HISTORY Diagnosis Date Abdominal pain 03/27/2014 Patient has abdominal pain , had ct at which was normal, document scanned Acanthosis nigricans Acne Acute nonintractable headache 03/22/2015 Headache for the past 4 months. Not the worst headache, Not worsening. Triggers include coughing and running. The headache is in the forehead area. It is a 7/10 headache, excedrin helps it to go away Does not get a nausea. Touching and combing her hair gives her headache. Then she says everyday she gets a headache. Smokes a half pack. Never seen a neurologist. ADD (attention deficit disorder) Body piercing left lower lip, left ear Closed fracture of lower end of radius with ulna 1995 buckle fracture Croup recurrent episodes Depression Hirsutism Migraine Morbid obesity (HCC) Oligomenorrhea CALEB (obstructive sleep apnea) 2010 Other acne 08/16/2006 PCOS (polycystic ovarian syndrome) Unspecified asthma(493.90) Exercise induced Asthma PAST SURGICAL HISTORY Procedure Laterality Date ADENOIDECTOMY PRIMARY Adenoidectomy CLOSED TX ULNAR FRACTURE PROXIMAL END W/O MANJ 07/08/00 TONSILLECTOMY PRIMARY/SECONDARY Tonsillectomy ALLERGIES Patient has no known allergies. MEDICATIONS omega-3 fatty acids 1,000 mg cap Take 1 capsule by mouth once daily for 30 days, THEN 2 capsules once daily. topiramate (TOPAMAX) 100 mg tablet Take 1 tablet by mouth daily at bedtime. metFORMIN (GLUCOPHAGE) 500 mg tablet Take 1 tablet by mouth daily with dinner. busPIRone (BUSPAR) 15 mg tablet Take 1 tablet by mouth three times daily. sertraline (ZOLOFT) 100 mg tablet TAKE 2 TABLETS BY MOUTH EVERY DAY fluticasone (FLONASE) 50 mcg/actuation nasal spray Use 2 Sprays in each nostril once daily. Rinse mouth after use. cyclobenzaprine (FLEXERIL) 10 mg tablet Take 0.5-1 tablets by mouth three times daily as needed for Muscle Spasm. albuterol (PROVENTIL) 2.5 mg /3 mL (0.083 %) nebulizer solution Use 3 mL via nebulizer every 6 hours as needed for Wheezing/Shortness of Breath. albuterol HFA (PROVENTIL HFA, VENTOLIN HFA) 90 mcg/actuation inhaler Inhale 2 Puffs as instructed every 4 hours as needed. fluticasone (FLONASE) 50 mcg/actuation nasal spray Use 2 Sprays in each nostril once daily. Rinse mouth after use. CPAP naratriptan (AMERGE) 2.5 mg tablet Take 1 tablet by mouth as needed. 2.5 mg at onset of headache, may repeat in 4 hours if needed (Patient not taking: Reported on 07/22/2021 ) FAMILY HISTORY Problem Relation Age of Onset None Mother other (migraine) Mother also father Diabetes Father Coronary Artery Disease Paternal Grandmother Diabetes Paternal Grandmother also grandfather and several aunts/uncles Hypertension Paternal Grandmother Emphysema Paternal Grandfather Diabetes Paternal Aunt Diabetes Paternal Uncle Diabetes Other great grandma other (Other) Other paternal great uncles and aunts x4 Social History Tobacco Use Smoking status: Former Packs/day: 0.50 Years: 7.00 Pack years: 3.50 Types: Cigarettes Smokeless tobacco: Never Tobacco comments: quit 5 months ago Vaping Use Vaping Use: current everyday user Substances: Nicotine Devices: RefTextPowerble tank Substance Use Topics Alcohol use: Yes Comment: occasionally Drug use: No BP 126/74 Pulse 84 Temp 37.2 ?C (98.9 ?F) (Tympanic) Resp 22 Wt (!) 146.9 kg (323 lb 12.8 oz) LMP (LMP Unknown) SpO2 97% BMI 60.19 kg/m? Review of Systems Constitutional: Negative for chills, fever and malaise/fatigue. HENT: Positive for congestion, sinus pain and sore throat. Negative for ear discharge and ear pain. Eyes: Negative for blurred vision, pain, discharge and redness. Respiratory: Positive for cough. Negative for hemoptysis, sputum production, shortness of breath, wheezing and stridor. Cardiovascular: Negative for chest pain. Gastrointestinal: Negative for abdominal pain, diarrhea, nausea and vomiting. Musculoskeletal: Negative for myalgias. (more content not included)... [facility] 04-21-2022 Instructions Cipriano Barry APRN.[facility] - 04/21/2022 4:10 PM EST How to Manage Common Symptoms Associated with COVID for Adults Fever- Fever is a temperature over 100.4 F and can occur when the body is fighting an infection. To help treat a fever: Drink plenty of fluids and stay well hydrated. Eat small amounts of easy to digest food. Rest. Your body needs rest to recover, but getting up and moving around the house frequently is a good idea. You should try to continue doing your normal daily activities (bathing, toileting, grooming, cooking), though you will probably feel tired, and need to rest often. Avoid any heavy activity or exercise, as this will increase your body temperature. Dress in light clothing and stay covered in a light sheet. Keep the room temperature cool. Take a slightly warm (not cold or cool) bath, or apply damp washcloths to the forehead and wrists. Cough- Cough is a common symptom associated with COVID and can be bothersome. To help treat a cough: Stay well hydrated. Try warm water or tea with lemon and/or honey to help soothe the cough. Use a humidifier to add moisture to the air. Try a product with menthol, like a cough drop or a rub for your chest such as Vicks, which can help reduce cough. Try cough drops. Avoid smoking and other strong odors or perfumes. Try breathing exercises to keep your lungs open and clear. Take a big deep breath through your nose and hold for 5 seconds before slowly releasing. Repeat frequently, while you are awake. Congestion- Runny nose or nasal congestion can occur with COVID. Treatment can help relieve symptoms: Try OTC nasal saline spray, or nasal saline rinse to relieve mucus congestion. Nasal strips can help keep nasal passages open, to increase airflow. Elevating your head with an extra pillow in bed can help reduce congestion. Using a humidifier can increase moisture in the air, and make breathing easier. Sore Throat- Another common symptom with COVID, can be managed at home by: Stay well hydrated. Gargle with salt water - mix teaspoon salt with 1 cup of warm water and gargle. This helps to loosen mucus in the back of the throat and may reduce discomfort. Try ice chips, popsicles or lozenges to soothe the throat. Nausea/Vomiting/Diarrhea- These are common symptoms, and staying hydrated is most important. If you are nauseous or vomiting, start with small sips of water every 10-15 minutes and increase as tolerated. You can try sucking an ice cube too. If tolerating, you can try pedialyte or Gatorade, or flat sprite or paul-bandar. Start slowly and increase as you are able to. Instead of meals, try smaller, more frequent snacks. Try eating bland foods like crackers, toast, rice, and applesauce. Avoid spicy, greasy or fried foods and dairy containing foods. Even if you aren't feeling hungry due to lack of smell or taste, it is important to try to take in some food when you are able. After drinking and eating, rest in an upright position for up to two hours as needed to help decrease nauseous feelings. Try closing your eyes, avoid moving and watching TV. Avoid strong odors that can make you feel more nauseated. When to seek emergency medical attention Look for emergency warning signs for COVID-19. If having any of these symptoms, seek emergency medical care immediately: Trouble breathing Persistent pain or pressure in the chest New confusion Inability to wake or stay awake Bluish lips or face *This list is not all possible symptoms. Please call your medical provider for any other symptoms that are severe or concerning to you. documented in this encounter [facility] 04-21-2022 History of Presen t illness Narrative Subjective HPI Nontoxic-appearing female presents urgent care chief complaint URI-like symptoms. Duration of symptoms 3 days. Associated symptoms sore throat, nasal congestion, nasal discharge and nonproductive cough. Patient denies the use of any dgmk-qyg-byeelqt medications or home remedies for symptom management. Patient states recent sick contacts with similar signs and symptoms. Patient denies any productive cough, fever, chest pain, shortness of breath, pleuritic pain, rash, abdominal pain, nausea, vomiting or change in bowel or bladder habit. Past medical history prescription medication use allergies reviewed denies chance of is not breast-feeding. .Patient presents with: Nasal Congestion: Pt reported cough, nasal congestion, x3 days. PAST MEDICAL HISTORY Diagnosis Date Abdominal pain 03/27/2014 Patient has abdominal pain , had ct at which was normal, document scanned Acanthosis nigricans Acne Acute nonintractable headache 03/22/2015 Headache for the past 4 months. Not the worst headache, Not worsening. Triggers include coughing and running. The headache is in the forehead area. It is a 7/10 headache, excedrin helps it to go away Does not get a nausea. Touching and combing her hair gives her headache. Then she says everyday she gets a headache. Smokes a half pack. Never seen a neurologist. ADD (attention deficit disorder) Body piercing left lower lip, left ear Closed fracture of lower end of radius with ulna 1995 buckle fracture Croup recurrent episodes Depression Hirsutism Migraine Morbid obesity (HCC) Oligomenorrhea CALEB (obstructive sleep apnea) 2010 Other acne 08/16/2006 PCOS (polycystic ovarian syndrome) Unspecified asthma(493.90) Exercise induced Asthma PAST SURGICAL HISTORY Procedure Laterality Date ADENOIDECTOMY PRIMARY <AGE 12 1997 Adenoidectomy CLOSED TX ULNAR FRACTURE PROXIMAL END W/O MANJ 07/08/00 TONSILLECTOMY PRIMARY/SECONDARY <AGE 12 1997 Tonsillectomy ALLERGIES Patient has no known allergies. MEDICATIONS omega-3 fatty acids 1,000 mg cap Take 1 capsule by mouth once daily for 30 days, THEN 2 capsules once daily. topiramate (TOPAMAX) 100 mg tablet Take 1 tablet by mouth daily at bedtime. metFORMIN (GLUCOPHAGE) 500 mg tablet Take 1 tablet by mouth daily with dinner. busPIRone (BUSPAR) 15 mg tablet Take 1 tablet by mouth three times daily. sertraline (ZOLOFT) 100 mg tablet TAKE 2 TABLETS BY MOUTH EVERY DAY fluticasone (FLONASE) 50 mcg/actuation nasal spray Use 2 Sprays in each nostril once daily. Rinse mouth after use. cyclobenzaprine (FLEXERIL) 10 mg tablet Take 0.5-1 tablets by mouth three times daily as needed for Muscle Spasm. albuterol (PROVENTIL) 2.5 mg /3 mL (0.083 %) nebulizer solution Use 3 mL via nebulizer every 6 hours as needed for Wheezing/Shortness of Breath. albuterol HFA (PROVENTIL HFA, VENTOLIN HFA) 90 mcg/actuation inhaler Inhale 2 Puffs as instructed every 4 hours as needed. fluticasone (FLONASE) 50 mcg/actuation nasal spray Use 2 Sprays in each nostril once daily. Rinse mouth after use. CPAP naratriptan (AMERGE) 2.5 mg tablet Take 1 tablet by mouth as needed. 2.5 mg at onset of headache, may repeat in 4 hours if needed (Patient not taking: Reported on 07/22/2021 ) FAMILY HISTORY Problem Relation Age of Onset None Mother other (migraine) Mother also father Diabetes Father Coronary Artery Disease Paternal Grandmother Diabetes Paternal Grandmother also grandfather and several aunts/uncles Hypertension Paternal Grandmother Emphysema Paternal Grandfather Diabetes Paternal Aunt Diabetes Paternal Uncle Diabetes Other great grandma other (Other) Other paternal great uncles and aunts x4 Social History Tobacco Use Smoking status: Former Packs/day: 0.50 Years: 7.00 Pack years: 3.50 Types: Cigarettes Smokeless tobacco: Never Tobacco comments: quit 5 months ago Vaping Use Vaping Use: current everyday user Substances: Nicotine Devices: Refillable tank Substance Use Topics Alcohol use: Yes Comment: occasionally Drug use: No BP 126/74 Pulse 84 Temp 37.2 C (98.9 F) (Tympanic) Resp 22 Wt (!) 146.9 kg (323 lb 12.8 oz) LMP (LMP Unknown) SpO2 97% BMI 60.19 kg/m Review of Systems Constitutional: Negative for chills, fever and malaise/fatigue. HENT: Positive for congestion, sinus pain and sore throat. Negative for ear discharge and ear pain. Eyes: Negative for blurred vision, pain, discharge and redness. Respiratory: Positive for cough. Negative for hemoptysis, sputum production, shortness of breath, wheezing and stridor. Cardiovascular: Negative for chest pain. Gastrointestinal: Negative for abdominal pain, diarrhea, nausea and vomiting. Musculoskeletal: Negative for myalgias. Skin: Negative for itching and rash. Neurological: Positive for headaches. Negative for dizziness. Objective Physical Exam Constitutional: General: She is not in acute distress. Appearance: She is not diaphoretic. HENT: Head: Normocephalic. Nose: Rhinorrhea present. Mouth/Throat: Mouth: Mucous membranes are moist. Pharynx: Oropharynx is clear. No oropharyngeal exudate or posterior oropharyngeal erythema. Eyes: Conjunctiva/sclera: Conjunctivae normal. Pupils: Pupils are equal, round, and reactive to light. Cardiovascular: Rate and Rhythm: Normal rate and regular rhythm. Heart sounds: Normal heart sounds. Pulmonary: Effort: Pulmonary effort is normal. No tachypnea, accessory muscle usage or respiratory distress. Breath sounds: Normal breath sounds. No stridor. No wheezing, rhonchi or rales. Musculoskeletal: Cervical back: Normal range of motion and neck supple. No rigidity or tenderness. Lymphadenopathy: Cervical: No cervical adenopathy. Skin: General: Skin is warm and dry. Neurological: Mental Status: She is alert and oriented to person, place, and time. ASSESSMENT/PLAN: 1. Viral illness - ICD9: 079.99, ICD10: B34.9 - Discussed viral etiology and rationale for treatment. - Symptomatic treatment with prn analgesia - Supportive care with fluids and rest - COVID WITH FLUA+B, ROUTINE Patient will follow up with primary care provider as needed. Patient was instructed to immediately proceed to emergency room for any new, worsening, or symptoms lasting longer than anticipated. The patient's clinical presentation is otherwise unremarkable at this time. Based on exam and clinical finding, the patient is stable for discharge. Plan of care was discussed with patient. Patient verbalizes understanding and agrees to plan of care. This note was generated using [employer] software. It may contain errors in wording, punctuation, or spelling. Cipriano Barry APRN.SWAPNA documented in this encounter [facility] 03-28-2022 Note HNO ID: [id number] Author: Lindsay Neville APRN.SWAPNA Service: ? Author Type: Nurse Practitioner Type: Progress Notes Filed: 03/28/2022 11:32 AM Note Text: PSYC FOLLOW UP - PSYCHIATRIC PROGRESS NOTE DIAGNOSIS: MDD, recurrent, moderate - seasonal affective presentation Generalized Anxiety Disorder OCD GAF: -60-51 Moderate symptoms or moderate difficulty in social, occupational or school functioning. TREATMENT PLAN: Start light therapy to help with her mood concerns related to SAD. Incorporate [place] 3 fatty acid supplement to help with her mood and anxiety. Complete Vitamin D lab work. Continue Zoloft and Buspar at the same dose. Incorporate exercise and yoga in her routine. Reschedule her intake appointment at the counseling center. Follow up in 4 weeks as scheduled. The effects and side effects of all the medications, including supplements were reviewed in detail with the patient. She is in agreement with the treatment plan and aware to reach out with any questions, concerns, or worsening of symptoms prior to the next appointment. CC: Follow up regarding her mood With the patient consent, visit was performed virtually. HPI: Janell Thornton is a 27 year old Female with a history of MDD, MARII, and OCD presenting today for follow-up. Date of last visit: 01/30/2022 Plan from last visit: Continue Zoloft, Buspar, and Metformin at the same dose. Utilize Valium only as needed for overwhelming episodes of anxiety. [facility]. Patient has an intake next week. Follow up in 3 months. Janell requested to schedule an appointment sooner due to concerns with her mood. Today she reports that she is feeling better physically. Today is her last day of anti biotics. She thought she had a sinus infection and her ears felt clogged up. She shares that her dip in the mood was related to the stress that she was experiencing at work. She feels much better after quitting her job. She quit on March 16. She feels that the seasonal depression was also impacting her. This is something that she struggles with every year. In the past, it has helped for her to engage with others. Discussed incorporating light therapy. She has started taking a multi-vitamin. Her vitamin D level has not been checked since 2020.She is also going to incorporate [place] 3 fatty acids as she was told that it is going to help with her migraines too. She is looking forward to walking with a friend. We discussed incorporating chair yoga and mat yoga. She was engaged in the discussion and verbalized understanding. She has been applying to some jobs. She thinks she would enjoy working with animals. 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 She has been busy helping with her sister's children as her sister is in long term. Their father has custody but she feels that it is not the best place for them. She tries to be there to support them. Interval Progress: Slightly worse Risks and benefits of the medication, including any black box warnings, were discussed with the patient. Social History: See HPI PATIENT DATA: Generalized Anxiety Disorder Scale (MARII-7) MARII - 7 SCORES 12/26/2021 01/30/2022 03/21/2022 AMRII-7 Score 5 6 18 (0-4) minimal anxiety, (5-9) mild anxiety, (10-14) moderate anxiety, (15-21) severe anxiety Patient Health Questionnaire (PHQ-9) PHQ-9 12/26/2021 01/30/2022 03/21/2022 Score 7 5 21 (0-4) minimal depression, (5-9) mild depression, (10-14) moderate depression, (15-19) moderately severe depression, (20-27) severe depression ROS: General: Negative for fever, malaise, unintentional weight loss HEENT: Negative for recent changes in vision or hearing, no nasal drainage Respiratory: Negative for cough, wheezing or SOB Cardiovascular: Negative for chest pain GI: Negative for nausea, vomiting, change in bowel habits MUSCULOSKELETAL: Negative for acute back or joint pain SKIN: Negative for rash NEURO: Negative for headaches, seizures, focal neurological deficits All other systems negative. VITAL SIGNS: BP Temp Pulse Resp SpO2 MENTAL STATUS EXAMINATION: Appearance: Appropriately groomed, appears stated age Behavior: Appropriately engaged Psychomotor: No psychomotor agitation Cognition Level of Consciousness: Awake and alert. No fluctuation in wakefulness. Orientation: Grossly oriented Memory: Intact Attention/Concentration: Good Fund of Knowledge: Able to demonstrate an awareness of current events. Mood: Sad Affect: Congruent to mood Speech/Language: Appropriate tone, prosody, amy, phonetics, and syntax Thought Form: Goal-directed. No loosening of associations. Thought Content: No delusions noted or endorsed. Perceptual Disturbances: Did not appear to respond to auditory stimuli. Safety: Suicidal Ideations: No suicida (more content not included)... [facility] 03-28-2022 History of Presen t illness Narrative Images from the original note were not included. PSYC FOLLOW UP - PSYCHIATRIC PROGRESS NOTE DIAGNOSIS: MDD, recurrent, moderate - seasonal affective presentation Generalized Anxiety Disorder OCD GAF: -60-51 Moderate symptoms or moderate difficulty in social, occupational or school functioning. TREATMENT PLAN: Start light therapy to help with her mood concerns related to SAD. Incorporate [place] 3 fatty acid supplement to help with her mood and anxiety. Complete Vitamin D lab work. Continue Zoloft and Buspar at the same dose. Incorporate exercise and yoga in her routine. Reschedule her intake appointment at the counseling center. Follow up in 4 weeks as scheduled. The effects and side effects of all the medications, including supplements were reviewed in detail with the patient. She is in agreement with the treatment plan and aware to reach out with any questions, concerns, or worsening of symptoms prior to the next appointment. CC: Follow up regarding her mood With the patient consent, visit was performed virtually. HPI: Janell Thornton is a 27 year old Female with a history of MDD, MARII, and OCD presenting today for follow-up. Date of last visit: 01/30/2022 Plan from last visit: Continue Zoloft, Buspar, and Metformin at the same dose. Utilize Valium only as needed for overwhelming episodes of anxiety. [facility] individual psych[facility]. Patient has an intake next week. Follow up in 3 months. Janell requested to schedule an appointment sooner due to concerns with her mood. Today she reports that she is feeling better physically. Today is her last day of anti biotics. She thought she had a sinus infection and her ears felt clogged up. She shares that her dip in the mood was related to the stress that she was experiencing at work. She feels much better after quitting her job. She quit on March 16. She feels that the seasonal depression was also impacting her. This is something that she struggles with every year. In the past, it has helped for her to engage with others. Discussed incorporating light therapy. She has started taking a multi-vitamin. Her vitamin D level has not been checked since 2020.She is also going to incorporate [place] 3 fatty acids as she was told that it is going to help with her migraines too. She is looking forward to walking with a friend. We discussed incorporating chair yoga and mat yoga. She was engaged in the discussion and verbalized understanding. She has been applying to some jobs. She thinks she would enjoy working with animals. 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 She has been busy helping with her sister's children as her sister is in long term. Their father has custody but she feels that it is not the best place for them. She tries to be there to support them. Interval Progress: Slightly worse Risks and benefits of the medication, including any black box warnings, were discussed with the patient. Social History: See HPI PATIENT DATA: Generalized Anxiety Disorder Scale (MARII-7) MARII - 7 SCORES 12/26/2021 01/30/2022 03/21/2022 MARII-7 Score 5 6 18 (0-4) minimal anxiety, (5-9) mild anxiety, (10-14) moderate anxiety, (15-21) severe anxiety Patient Health Questionnaire (PHQ-9) PHQ-9 12/26/2021 01/30/2022 03/21/2022 Score 7 5 21 (0-4) minimal depression, (5-9) mild depression, (10-14) moderate depression, (15-19) moderately severe depression, (20-27) severe depression ROS: General: Negative for fever, malaise, unintentional weight loss HEENT: Negative for recent changes in vision or hearing, no nasal drainage Respiratory: Negative for cough, wheezing or SOB Cardiovascular: Negative for chest pain GI: Negative for nausea, vomiting, change in bowel habits MUSCULOSKELETAL: Negative for acute back or joint pain SKIN: Negative for rash NEURO: Negative for headaches, seizures, focal neurological deficits All other systems negative. VITAL SIGNS: BP Temp Pulse Resp SpO2 MENTAL STATUS EXAMINATION: Appearance: Appropriately groomed, appears stated age Behavior: Appropriately engaged Psychomotor: No psychomotor agitation Cognition Level of Consciousness: Awake and alert. No fluctuation in wakefulness. Orientation: Grossly oriented Memory: Intact Attention/Concentration: Good Fund of Knowledge: Able to demonstrate an awareness of current events. Mood: Sad Affect: Congruent to mood Speech/Language: Appropriate tone, prosody, amy, phonetics, and syntax Thought Form: Goal-directed. No loosening of associations. Thought Content: No delusions noted or endorsed. Perceptual Disturbances: Did not appear to respond to auditory stimuli. Safety: Suicidal Ideations: No suicidal ideation, intent or plan. Homicidal Ideations: No homicidal ideation, intent or plan. Insight: Appropriate Judgment: Appropriate I spent a total of 38 minutes on the date of the service which included preparing to see the patient, hizw-zi-bhfc patient care, completing clinical documentation, and counseling and educating the patient/family/caregiver, ordering medications/labs. Lindsay Neville APRN.CNP March 28, 2022 9:03 AM This note was partially generated using [employer] voice recognition system. Note was reviewed for accuracy. There may be minor misspellings or grammar miscues with Dragon voice recognition. documented in this encounter [facility] 03-20-2022 Hospital Discharg e instructions Patient Education 03/20/2022 19:43:10 Why Do You Smoke? Why Do You Smoke? The more you know about why you smoke, the easier it will be to quit. You may reach for a cigarette during a stressful commute. Or you may want to smoke when you first wake up in the morning. Learn what your smoking triggers are, and how to handle them. Common triggers Frustration Fatigue Anger Stress Hunger Boredom or loneliness Drinking or socializing Watching others smoke Smelling cigarette smoke Track your smoking habits To learn about your smoking habits, track them for a week. Attach a small notebook or piece of paper to your cigarette pack. With each cigarette you smoke, write down the time, where you are, who you re with, and how you feel. How to cope with your triggers Change the habits that lead you to smoke. For instance, if you often smoke at a morning break, go for a walk instead. Distract yourself from smoking. Keep your hands busy by playing with a paper clip or doodling. Keep your mouth busy by chewing on gum or a carrot stick. Limit contact with people who are smoking. When you eat out, sit in the nonsmoking section. For more information https://smokefree.gov/talk-to-an -expert [employer] Smoking Quitline: 634-39W-KVZR (481-894-5902) 6891-5514 [employer]. [address] [place] [address], [place] [address]. All rights reserved. This information is not intended as a substitute for professional medical care. Always follow your healthcare professional's instructions. 03/20/2022 19:42:27 Otitis Media, Antibiotic Treatment (Adult) Middle Ear Infection (Adult) You have an infection of the middle ear, the space behind the eardrum. This is also called acute otitis media (AOM). Sometimes it is caused by the common cold. This is because congestion can block the internal passage (eustachian tube) that drains fluid from the middle ear. When the middle ear fills with fluid, bacteria can grow there and cause an infection. Oral antibiotics are used to treat this illness, not ear drops. Symptoms usually start to improve within 1 to 2 days of treatment. Home care The following are general care guidelines: Finish all of the antibiotic medicine given, even though you may feel better after the first few days. You may use bifw-kfy-lmrrvmq medicine, such as acetaminophen or ibuprofen, to control pain and fever, unless something else was prescribed. If you have chronic liver or kidney disease or have ever had a stomach ulcer or gastrointestinal bleeding, talk with your healthcare provider before using these medicines. Do not give aspirin to anyone under 18 years of age who has a fever. It may cause severe illness or . Follow-up care Follow up with your healthcare provider, or as advised, in 2 weeks if all symptoms have not gotten better, or if hearing doesn't go back to normal within 1 month. When to seek medical advice Call your healthcare provider right away if any of these occur: Ear pain gets worse or does not improve after 3 days of treatment Unusual drowsiness or confusion Neck pain, stiff neck, or headache Fluid or blood draining from the ear canal Fever of 100.4 F (38 C) or as advised Seizure [id number] [employer]. [address] [place] [address]. All rights reserved. This information is not intended as a substitute for professional medical care. Always follow your healthcare professional's instructions. Follow Up Care 03/20/2022 19:06:15 With:RD BYRNES MD Address: [address] [place] [address]- When:2-4 days [facility] 03-20-2022 Emergency department Discharge summary Discharge Instructions Thank you for allowing [facility] to assist you with your healthcare needs. The following is important discharge information regarding your hospital visit. Diagnosis from Today's Visit Otitis media Vaping Cough What to Do Next Instructions from Your Care Team No qualifying data available. Post Acute Orders No qualifying data available. You Need to Schedule the Following Appointments Follow Up with RD BYRNES MD When Within 2-4 days Where: [address] [place] [address]- Allergies NKA Medications Please ask your primary doctor or pharmacist before taking any other medication not listed, including over the counter drugs, herbal medications, vitamins and or supplements as they may interact with your home medications. What How Much When Why Instructions Last Dose New amoxicillin (amoxicillin 875 mg oral tablet) 1 tab(s) by mouth Two (2) times a day Otitis media Vaping Duration: 7 Days Printed Prescription Please take this list to your next doctor s visit. Bring all medications you take, including over the counter medications, herbals and other supplements with you to your doctor s visit. Patients and families are reminded to discard old lists and to update any records with all medication providers or retail pharmacies. Education Materials Why Do You Smoke? The more you know about why you smoke, the easier it will be to quit. You may reach for a cigarette during a stressful commute. Or you may want to smoke when you first wake up in the morning. Learn what your smoking triggers are, and how to handle them. Common triggers Frustration Fatigue Anger Stress Hunger Boredom or loneliness Drinking or socializing Watching others smoke Smelling cigarette smoke Track your smoking habits To learn about your smoking habits, track them for a week. Attach a small notebook or piece of paper to your cigarette pack. With each cigarette you smoke, write down the time, where you are, who you re with, and how you feel. How to cope with your triggers Change the habits that lead you to smoke. For instance, if you often smoke at a morning break, go for a walk instead. Distract yourself from smoking. Keep your hands busy by playing with a paper clip or doodling. Keep your mouth busy by chewing on gum or a carrot stick. Limit contact with people who are smoking. When you eat out, sit in the nonsmoking section. For more information https://smokefree.gov/talk-to-an -expert [employer] Smoking Quitline: 247-51G-VGDT (110-213-2415) 0012-6332 [employer]. [address] [place], [place] [address]. All rights reserved. This information is not intended as a substitute for professional medical care. Always follow your healthcare professional's instructions. Middle Ear Infection (Adult) You have an infection of the middle ear, the space behind the eardrum. This is also called acute otitis media (AOM). Sometimes it is caused by the common cold. This is because congestion can block the internal passage (eustachian tube) that drains fluid from the middle ear. When the middle ear fills with fluid, bacteria can grow there and cause an infection. Oral antibiotics are used to treat this illness, not ear drops. Symptoms usually start to improve within 1 to 2 days of treatment. Home care The following are general care guidelines: Finish all of the antibiotic medicine given, even though you may feel better after the first few days. You may use yjuj-wfc-hkxkqte medicine, such as acetaminophen or ibuprofen, to control pain and fever, unless something else was prescribed. If you have chronic liver or kidney disease or have ever had a stomach ulcer or gastrointestinal bleeding, talk with your healthcare provider before using these medicines. Do not give aspirin to anyone under 18 years of age who has a fever. It may cause severe illness or . Follow-up care Follow up with your healthcare provider, or as advised, in 2 weeks if all symptoms have not gotten better, or if hearing doesn't go back to normal within 1 month. When to seek medical advice Call your healthcare provider right away if any of these occur: Ear pain gets worse or does not improve after 3 days of treatment Unusual drowsiness or confusion Neck pain, stiff neck, or headache Fluid or blood draining from the ear canal Fever of 100.4 F (38 C) or as advised Seizure [id number] [employer]. [address] [place], [place] [address]. All rights reserved. This information is not intended as a substitute for professional medical care. Always follow your healthcare professional's instructions. Additional Information VACCINATE! IT SAVES LIVES! Members of the community who have not yet received the COVID-19 vaccine and would like to receive it can visit one of [facility] vaccine clinics. There are many vaccine clinic locations within the [facility]. For locations and available times, please visit [email or web address]. It is important to note that some COVID mobile vaccine clinics are held outdoors and may be canceled in rainy or stormy conditions. To learn more about pediatric vaccinations (ages 5-11), we invite you to visit the [facility] webpage. [email or web address]/p [email or web address]-Txztnokrzqp-Freq [email or web address].[email or web address] To learn more about the COVID-19 vaccine, we invite you to visit the [facility] website for a list of frequently asked questions. [email or web address] [facility] Patient Portal Access Instructions: Stay connected with your healthcare team and access your personal medical information anytime with the [facility] Patient Portal. If you would like a full copy of your medical records please contact the [facility] Medical Records Department Sunday through Sunday between 8a.m. and 4:30p.m. Please follow the directions below to access the portal: 1.Access the email account you provided upon registration to the [facility].2.Look for an invitation email from [facility].3.Open the email and access the invitation link: Accept Invitation to [facility]4.Fill in the required bess to create your account. Sign into [email or web address] with your username and password that you created in the above steps to stay up to date. You can then view a summary of results, a summary of your visits, and the ability to download your summaries to your computer or send the information securely to a physician. Remember that your healthcare information is confidential, so carefully consider who you will allow to register on the [facility] Patient Portal for access to your information. You can also access the [facility] Patient Portal on the [employer] kerry. Simply click on Health Records under Health Data and then click on the [employer] logo. HOW TO SAFELY DISPOSE OF PRESCRIPTION MEDICATIONS Please use one of the following methods to safely dispose of your unused medications. 1.Use a drug disposal kit: the drug disposal pouch allows you to safely discard your old and unused drugs. Ask your nurse to give you one when you are discharged.2.Visit a local take-back location: Many local pharmacies and police departments have programs that collect old and unwanted prescription drugs. Call your local pharmacy or go to http://Lyst.[employer]/0M4Pq2h to find one close to you.3.Make use of household items: Use cat litter or old coffee grounds to dispose medications if other options are not available. Mix your drugs with these household products, seal them in an airtight container and throw it into the garbage. Call [facility]: [phone] to be sure your drugs can be disposed of in this way. Some medicines may require a different approach.4.Never flush your medications down the toilet. IF YOU HAVE BEEN PRESCRIBED AN OPIOIDS FOR PAIN If you have been prescribed an opioid (such as hydrocodone, oxycodone or morphine), it is critical to understand the possible side effects and risks of opioid pain medications. Even when taken as directed, opioids can have several side effects including: Tolerance, meaning you might need to take more of a medication for the same pain relief. Nausea, vomiting and/or constipation. Sleepiness, dizziness, dry mouth, confusion, depression or itching. Physical dependence, meaning you have withdrawal symptoms when a medication is stopped ? this can develop within a few days. KNOW YOUR RESPONSIBILITIES It is important to know exactly how much and how often to take the opioid pain medications you are prescribed. Never take opioids in higher amounts or more often than prescribed. Do not combine opioids with alcohol or other drugs that cause drowsiness, such as benzodiazepines, also known as benzos, including diazepam and alprazolam, muscle relaxants or sleep aids. Never sell or share prescription opioids. This is illegal. Store opioids in a secure place and out of reach of others (including children, family, friends and visitors). The last page(s) of this document has been signed and retained as a CHART COPY Signatures Patient Education Materials Why Do You Smoke? Otitis Media, Antibiotic Treatment (Adult) Medication Leaflets My discharge plan and instructions have been reviewed and explained to me and I,JANELL THORNTON understand my current condition and have read and understand these discharge instructions. I have received a written copy of the plan/instructions. If I have questions, I am aware that I should contact my doctor. 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 documented in this encounter [facility] 02-15-2022 Miscellaneous Notes Called the patient and scheduled an appointment. The refill will be addressed at the appointment. documented in this encounter [facility] 01-30-2022 History of Presen t illness Narrative Images from the original note were not included. PSYC FOLLOW UP - PSYCHIATRIC PROGRESS NOTE DIAGNOSIS: Generalized Anxiety Disorder OCD MDD, recurrent, in partial remission GAF: -70-61 Some mild symptoms or some difficulty in social, occupational, or school functioning, but generally functioning pretty well. TREATMENT PLAN: Continue Zoloft, Buspar, and Metformin at the same dose. Utilize Valium only as needed for overwhelming episodes of anxiety. [facility] Patient has an intake next week. Follow up in 3 months. The effects and side effects of all the medications were reviewed in detail with the patient. She is in agreement with the treatment plan and aware to reach out with any questions, concerns, or worsening of symptoms prior to the next appointment. PDMP report was reviewed and found to be appropriate without any signs of misuse or diversion. CC: Follow up regarding mood and anxiety With the patient consent, visit was performed virtually. HPI: Janell Thornton is a 27 year old Female with a history of MARII, OCD, and MDD presenting today for follow-up. Date of last visit: 12/26/2021 Plan from last visit: Continue Zoloft and Buspar at the same dose. Utilize Valium as needed for increased episodes of anxiety. Follow up with PCP to review lab results and discuss starting Metformin if appropriate. Start individual psychotherapy. She has an intake in January at the counseling center. Follow up in 4 to 6 weeks. Today Janell shares that she has been doing well. She still get some worries but overall her symptoms have improved. No severe anxiety symptoms interfering with her functioning. She has not needed to take her Valium. 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 She was able to get her Cpap machine and is sleeping better. She has been taking Metformin and denies any side effect. She has been thinking about bariatric surgery and plans to schedule a consult. She had to reschedule her intake at the counseling center for therapy. She is scheduled for next week. Interval Progress: Improved Risks and benefits of the medication, including any black box warnings, were discussed with the patient. Social History: See HPI PATIENT DATA: Generalized Anxiety Disorder Scale (MARII-7) MARII - 7 SCORES 12/14/2021 12/26/2021 01/30/2022 MARII-7 Score 5 5 6 (0-4) minimal anxiety, (5-9) mild anxiety, (10-14) moderate anxiety, (15-21) severe anxiety Patient Health Questionnaire (PHQ-9) PHQ-9 12/14/2021 12/26/2021 01/30/2022 Score 7 7 5 (0-4) minimal depression, (5-9) mild depression, (10-14) moderate depression, (15-19) moderately severe depression, (20-27) severe depression ROS: General: Negative for fever, malaise, unintentional weight loss HEENT: Negative for recent changes in vision or hearing, no nasal drainage Respiratory: Negative for cough, wheezing or SOB Cardiovascular: Negative for chest pain GI: Negative for nausea, vomiting, change in bowel habits MUSCULOSKELETAL: Negative for acute back or joint pain SKIN: Negative for rash NEURO: Negative for headaches, seizures, focal neurological deficits All other systems negative. VITAL SIGNS: BP Temp Pulse Resp SpO2 MENTAL STATUS EXAMINATION: Appearance: Appropriately groomed, appears stated age Behavior: Appropriately engaged Psychomotor: No psychomotor agitation Cognition Level of Consciousness: Awake and alert. No fluctuation in wakefulness. Orientation: Grossly oriented Memory: Intact Attention/Concentration: Good Fund of Knowledge: Able to demonstrate an awareness of current events. Mood: Euthymic Affect: Congruent to mood Speech/Language: Appropriate tone, prosody, amy, phonetics, and syntax Thought Form: Goal-directed. No loosening of associations. Thought Content: No delusions noted or endorsed. Perceptual Disturbances: Did not appear to respond to auditory stimuli. Safety: Suicidal Ideations: No suicidal ideation, intent or plan. Homicidal Ideations: No homicidal ideation, intent or plan. Insight: Appropriate Judgment: Appropriate I spent a total of 28 minutes on the date of the service which included preparing to see the patient, [id number] patient care, completing clinical documentation, and counseling and educating the patient/family/caregiver, ordering medications/labs. Lindsay Neville APRN.MEDIATION COMMISSIONER January 30, 2022 2:01 PM This note was partially generated using [employer] voice recognition system. Note was reviewed for accuracy. There may be minor misspellings or grammar miscues with [employer] voice recognition. documented in this encounter [facility] 01-20-2022 Miscellaneous Notes Patient aware of 1 month RX for medication and needing to schedule f/u NEUR appointment for anymore Rx's in the future. Requesting PSS contact patient to assist in scheduling with Dr. Li or KERRY to be seen within a month. La Lyle LPN 1 mos refill provided but needs to schedule follow up with WChristopherN or KERRY. Timmy Li MD Patient calling said she runs out of medication after tonight dose. Patient asking if she needs to schedule an appt? Patient uses [facility] for her pharmacy. Please advise Physician: Dr. Li Call from pharmacy requesting refill. Please E-Scribe Last OV: 07/22/[address] Li Future OV: none schedule with Dr. Li Requested Prescriptions Pending Prescriptions Disp Refills topiramate (TOPAMAX) 100 mg tablet [Pharmacy Med Name: TOPIRAMATE 100 MG TABLET] 30 tablet 2 Sig: TAKE 1 TABLET BY MOUTH EVERYDAY AT BEDTIME Pharmacy Name: [facility] Pharmacy Phone #: [phone] Kayce Lugo 07/22/21 Assessment and Plan: ASSESSMENT/PLAN: 1. Intractable migraine without aura and without status migrainosus - ICD9: 346.11, ICD10: G43.019 (primary diagnosis) Patient with intractable migraines, with initial migraines occurring approximately 9 years ago. Initially would occur now and then, but now daily with no obvious provoking factor for change in frequency including no endorsement of OTC med overuse. Given a family history of cerebral aneurysm feel appropriate for head imaging and will order MRI brain wwo contrast, given the change in pattern of headache. Otherwise, non-focal neuro exam. For now will continue to treat with current meds but increase dosing: -Will not treat with medrol dav given prior use of steroids with no influence on headaches. -For preventative will increase Topamax to 75mg QHS this week and then further increase to 100mg QHS the following week. Reviewed SE and ADRs with pt including interaction with OCPs and impact on development. Pt has tolerated the medication thus far. Pt will contact us in about 3 weeks at such time will determine further changes to the medication based on the response to the increased dose. -For abortive therapy will continue with naratriptan. Uncertain the response pt had with use of Maxalt as tolerated previously. Possible increase in 5ht given pt on Zoloft and Buspar as well. Note pt also with known depression, and mood swing may have been unrelated to medications. 3. CALEB (obstructive sleep apnea) - ICD9: 327.23, ICD10: G47.33 Prior sleep study negative as above, but pt endorsing snoring, witnessed apneas, dry mouth in AM, EDS, AM headaches. Pt feels symptoms worsening. Thus, will repeat PSG to evaluate for CALEB. Previously dx of CALEB when using AASM guidelines but last sleep study with CMS guidelines unremarkable including normal overall RDI. That said REM indices were elevated. Risk factors of obesity and PCOS. - POLYSOMNOGRAM (PSG) 4. Family history of ischemic heart disease and other diseases of the circulatory system - ICD9: V17.49, ICD10: Z82.49 MRI brain as above. Timmy Li MD documented in this encounter [facility] 01-09-2022 Miscellaneous Notes Letter faxed RTW today. Patient called requesting a return to work letter to fax# [phone] Harika Ellis. documented in this encounter [facility] 01-04-2022 History of Presen t illness Narrative Reason for Visit Patient presents with: Follow Up: labs Janell Thornton is a 26 year old female who presents here today for Above Complaints.. Health Maintenance COVID-19 VACCINE(1) PNEUMOCOCCAL(1 - PCV) SPIROMETRY DTAP,TDAP,TD(7 - Td or Tdap) HPI Reviewed labs Lipid are not concerning , hba1c is normal , and alt is elevated. Morbid obesity is her main concern. She has lost around 18 pounds by dieting and exercising. Diet: cut down a lot of carbs. She takes her dogs for walks so goes out and plays with them. They has been doing house work, going up and down the stairs a lot. Patient is going to start back exercising. She just got her sleep machine and will start using it. She slept well last night. Patient is seeing Lindsay, who wanted to put her on metformin , for the weight realate issues. Which I would agree with. She has been taking topamax for 3 years, migraines are better controlled. They are not as often as in the past. Patient would like to think about her weight loss surgery recently/ No problem-specific Assessment & Plan notes found for this encounter. PAST MEDICAL HISTORY Diagnosis Date Abdominal pain 03/27/2014 Patient has abdominal pain , had ct at which was normal, document scanned Acanthosis nigricans Acne Acute nonintractable headache 03/22/2015 Headache for the past 4 months. Not the worst headache, Not worsening. Triggers include coughing and running. The headache is in the forehead area. It is a 7/10 headache, excedrin helps it to go away Does not get a nausea. Touching and combing her hair gives her headache. Then she says everyday she gets a headache. Smokes a half pack. Never seen a neurologist. ADD (attention deficit disorder) Body piercing left lower lip, left ear Closed fracture of lower end of radius with ulna 1995 buckle fracture Croup recurrent episodes Depression Hirsutism Migraine Morbid obesity (HCC) Oligomenorrhea CALEB (obstructive sleep apnea) 2010 Other acne 08/16/2006 PCOS (polycystic ovarian syndrome) Unspecified asthma(493.90) Exercise induced Asthma PAST SURGICAL HISTORY Procedure Laterality Date ADENOIDECTOMY PRIMARY <AGE 12 1997 Adenoidectomy CLOSED TX ULNAR FRACTURE PROXIMAL END W/O MANJ 07/08/00 TONSILLECTOMY PRIMARY/SECONDARY <AGE 12 1997 Tonsillectomy FAMILY HISTORY Problem Relation Age of Onset None Mother other (migraine) Mother also father Diabetes Father Coronary Artery Disease Paternal Grandmother Diabetes Paternal Grandmother also grandfather and several aunts/uncles Hypertension Paternal Grandmother Emphysema Paternal Grandfather Diabetes Paternal Aunt Diabetes Paternal Uncle Diabetes Other great grandma other (Other) Other paternal great uncles and aunts x4 Social History Tobacco Use Smoking status: Former Packs/day: 0.50 Years: 7.00 Pack years: 3.50 Types: Cigarettes Smokeless tobacco: Never Tobacco comments: quit 5 months ago Vaping Use Vaping Use: current everyday user Substances: Nicotine Devices: RefTextPowerble tank Substance Use Topics Alcohol use: Yes Comment: occasionally Drug use: No Past medical history, appointments, medications, allergies reviewed. Pertinent Lab/Diagnostic Studies are reviewed and discussed today Current Outpatient Medications: metFORMIN (GLUCOPHAGE) 500 mg tablet sertraline (ZOLOFT) 100 mg tablet busPIRone (BUSPAR) 15 mg tablet topiramate (TOPAMAX) 100 mg tablet fluticasone (FLONASE) 50 mcg/actuation nasal spray naratriptan (AMERGE) 2.5 mg tablet cyclobenzaprine (FLEXERIL) 10 mg tablet albuterol (PROVENTIL) 2.5 mg /3 mL (0.083 %) nebulizer solution albuterol HFA (PROVENTIL HFA, VENTOLIN HFA) 90 mcg/actuation inhaler fluticasone (FLONASE) 50 mcg/actuation nasal spray CPAP Review of Systems CONSTITUTIONAL: No fevers, chills night sweats, unintended weight loss CARDIOVASCULAR: No chest pain, dyspnea, palpitations, orthopnea, PND, ankle edema. PULM: No dyspnea, unexplained cough. GI: No dysphagia/odynophagia, problematic reflux, constipation, diarrhea, changes in stool habits, hematochezia, melena. : No new urinary complaints, including dysuria, gross hematuria or pyuria. NEURO: No new balance problems, peripheral weakness/paresthesias or numbness of concern. Physical Exam BP 120/72 (BP Site: Left Arm, BP Position: Sitting, BP Cuff Size: Large Adult) Pulse 90 Temp 36.7 C (98 F) Resp 16 Ht 156.2 cm (5' 1.5 ) Wt (!) 143.8 kg (317 lb) LMP 08/29/2018 (LMP Unknown) SpO2 94% BMI 58.93 kg/m General appearance: Well appearing, alert, in no acute distress, well nourished. Skin: Skin color, texture, turgor normal, no suspicious rashes or lesions Head: Normocephalic, no masses, lesions, tenderness or abnormalities Eyes: Anicteric sclera. Pupils are equally round and reactive to light. Extraocular movements are intact. Lungs: Lungs clear to auscultation. No wheezing, rhonchi, rales Heart: RRR without murmur, gallop, or rubs. Extremities: No deformities, edema, skin discoloration, clubbing or cyanosis. Good capillary refill. ASSESSMENT/PLAN: 1. CALEB (obstructive sleep apnea) - ICD9: 327.23, ICD10: G47.33 (primary diagnosis) Enjoys using her machine 2. Morbid obesity with body mass index of 50.0-59.9 in adult (HCC) - ICD9: 278.01, V85.43, ICD10: E66.01, Z68.43 Stable - [facility] 3. Polycystic ovaries - ICD9: 256.4, ICD10: E28.2 4. Severe episode of recurrent major depressive disorder, without psychotic features (HCC) - ICD9: 296.33, ICD10: F33.2 On zoloft and metformin to help her with the weight gain Rd Byrnes MD documented in this encounter [facility] 12-26-2021 History of Presen t illness Narrative Images from the original note were not included. PSYC FOLLOW UP - PSYCHIATRIC PROGRESS NOTE DIAGNOSIS: Generalized Anxiety Disorder OCD MDD, recurrent, moderate GAF: -60-51 Moderate symptoms or moderate difficulty in social, occupational or school functioning. TREATMENT PLAN: Continue Zoloft and Buspar at the same dose. Utilize Valium as needed for increased episodes of anxiety. Follow up with PCP to review lab results and discuss starting Metformin if appropriate. Start individual psychotherapy. She has an intake in January at the counseling center. Follow up in 4 to 6 weeks. The effects and side effects of all the medications were reviewed in detail with the patient. She is in agreement with the treatment plan and aware to reach out with any questions, concerns, or worsening of symptoms prior to the next appointment. CC: Follow up regarding mood and anxiety With the patient consent, visit was performed virtually. HPI: Janell Thornton is a 26 year old Female with a history of MARII, OCD, and MDD presenting today for follow-up. Date of last visit: 11/25/2021 Plan from last visit: Start Zoloft 100 for 1 week; week 2 Zoloft 150 mg; week 3 Zoloft 200 mg Continue Effexor at current dose for 1 week; week 2 Effexor 75 mg ; week 3 discontinue Start Metformin 500 mg once a day with dinner Continue using Valium as needed for anxiety Follow up on lab work, cholesterol and glucose Follow up in 3 weeks . Today Janell shares that her anxiety is much better. I am doing so much better than before . She still does not feel like she can manage her anxiety on a whole work shift. She has only been on the Zoloft 200 mg for a week and half. She has not needed to use the Valium for 2 to 3 weeks. She has been able to leave the house okay. She attended her best friend's wedding. She has been able to drive again. Denies any major side effects associated with Zoloft or Buspar. She struggles with anticipatory anxiety when she is trying to leave. She worries about going back to work as her work is emotionally taxing. 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 Janell has an appointment scheduled with a therapist in January at the [facility]. She has not started the Metformin, we discussed meeting with her PCP to review lab work and then discuss starting it if appropriate. Interval Progress: Improved Risks and benefits of the medication, including any black box warnings, were discussed with the patient. Social History: See HPI PATIENT DATA: Generalized Anxiety Disorder Scale (MARII-7) MARII - 7 SCORES 12/14/2021 12/14/2021 12/26/2021 MARII-7 Score 5 5 5 (0-4) minimal anxiety, (5-9) mild anxiety, (10-14) moderate anxiety, (15-21) severe anxiety Patient Health Questionnaire (PHQ-9) PHQ-9 12/14/2021 12/14/2021 12/26/2021 Score 7 7 7 (0-4) minimal depression, (5-9) mild depression, (10-14) moderate depression, (15-19) moderately severe depression, (20-27) severe depression ROS: General: Negative for fever, malaise, unintentional weight loss HEENT: Negative for recent changes in vision or hearing, no nasal drainage Respiratory: Negative for cough, wheezing or SOB Cardiovascular: Negative for chest pain GI: Negative for nausea, vomiting, change in bowel habits MUSCULOSKELETAL: Negative for acute back or joint pain SKIN: Negative for rash NEURO: Negative for headaches, seizures, focal neurological deficits All other systems negative. VITAL SIGNS: BP Temp Pulse Resp SpO2 MENTAL STATUS EXAMINATION: Appearance: Appropriately groomed, appears stated age Behavior: Appropriately engaged Psychomotor: No psychomotor agitation Cognition Level of Consciousness: Awake and alert. No fluctuation in wakefulness. Orientation: Grossly oriented Memory: Intact Attention/Concentration: Good Fund of Knowledge: Able to demonstrate an awareness of current events. Mood: Euthymic Affect: Congruent to mood Speech/Language: Appropriate tone, prosody, amy, phonetics, and syntax Thought Form: Goal-directed. No loosening of associations. Thought Content: No delusions noted or endorsed. Perceptual Disturbances: Did not appear to respond to auditory stimuli. Safety: Suicidal Ideations: No suicidal ideation, intent or plan. Homicidal Ideations: No homicidal ideation, intent or plan. Insight: Appropriate Judgment: Appropriate I spent a total of 28 minutes on the date of the service which included preparing to see the patient, [id number] patient care, completing clinical documentation, and counseling and educating the patient/family/caregiver, ordering medications/labs. Lindsay Neville APRN.CNP December 26, 2021 2:05 PM This note was partially generated using [employer] voice recognition system. Note was reviewed for accuracy. There may be minor misspellings or grammar miscues with [employer] voice recognition. documented in this encounter [facility] 12-09-2021 Miscellaneous Notes Mychart message sent. ----- Message from Rd Byrnes MD sent at 12/09/2021 7:07 AM EDT ----- Please set patient to see me to discuss this issues with the patient documented in this encounter [facility] 11-25-2021 Instructions Lindsay Neville APRN.CNP - 11/25/2021 11:47 PM EDT Irina Burnham, It was good to talk with you. Below is a summary of the plan that we discussed during your appointment for reference. Of course, if you have any questions or concerns do not hesitate to reach out to me via a message or call. Best, Lindsay Neville APRN.CNP PLAN AND FOLLOW UP: YOU SHOULD SEEK IMMEDIATE MEDICAL ATTENTION AT THE NEAREST EMERGENCY DEPARTMENT OR BY CALLING 911, IF ANY OF THE FOLLOWING OCCURS: - New or worsening thoughts of harming yourself (suicidal thoughts) or others (homicidal thoughts) - Not feeling safe at home or worrying about your ability to remain safe at home If you are having thoughts of harming yourself or others, then you can: - Call the National Suicide Hotline at 0-488-DMWYIMO ( ) or 7-421-324-TALK (9190) - Text [employer]HOPE to 719643 Medication Update: Week 1 -sertraline (Zoloft) 100 mg- Take 1 tablet daily -venlafaxine (Effexor) 150 mg- Take 1 capsule daily Week 2 - sertraline (Zoloft) 150 mg- Take 1.5 tablets daily -venlafaxine (Effexor) 75 mg- Take 1 capsule daily Week 3 onwards - sertraline (Zoloft) 100 mg- Take 2 tablets daily for a dose of 200 mg - Discontinue venlafaxine Start metformin (Glucophage) 500 mg-Take 1 tablet by mouth daily with dinner Continue Valium and Buspar at same dose Next appointment: December 16 at 3:30 pm Virtual -- You may call the department appointment line at [phone] to schedule your appointment. -- Please call my nurse Yecenia at [phone] or send me a message in Addy with any questions or concerns between appointments. documented in this encounter [facility] 11-25-2021 History of Presen t illness Narrative Images from the original note were not included. PSYC FOLLOW UP - PSYCHIATRIC PROGRESS NOTE DIAGNOSIS: Generalized Anxiety Disorder MDD, moderate, recurrent OCD GAF: -50-41 Serious symptoms or any serious impairment in social, occupational or school functioning. TREATMENT PLAN: Start Zoloft 100 for 1 week; week 2 Zoloft 150 mg; week 3 Zoloft 200 mg Continue Effexor at current dose for 1 week; week 2 Effexor 75 mg ; week 3 discontinue Start Metformin 500 mg once a day with dinner Continue using Valium as needed for anxiety Follow up on lab work, cholesterol and glucose Follow up in 3 weeks Medication Update: Week 1 -sertraline (Zoloft) 100 mg- Take 1 tablet daily -venlafaxine (Effexor) 150 mg- Take 1 capsule daily Week 2 - sertraline (Zoloft) 150 mg- Take 1.5 tablets daily -venlafaxine (Effexor) 75 mg- Take 1 capsule daily Week 3 onwards - sertraline (Zoloft) 100 mg- Take 2 tablets daily for a dose of 200 mg - Discontinue venlafaxine Start metformin (Glucophage) 500 mg-Take 1 tablet by mouth daily with dinner Continue Valium and Buspar at same dose The effects and side effects of all the medications were reviewed in detail with the patient. She is in agreement with the treatment plan. She is aware to reach out with any questions, concerns, or worsening of symptoms prior to the next appointment. Patient denies any involuntary movement related side effects currently. CC: Follow regarding mood and anxiety With the patient consent, visit was performed virtually. HPI: Janell Thornton is a 26 year old Female with a history of MARII and MDD presenting today for follow-up. Date of last visit: 10/31/21 Plan from last visit: She reported the Valium worked and was able to get adequate rest. She notes fear of being dependent on the medication. She reports that her anxiety has gotten to the point where she cannot leave the house. She feels as if she ruminates and has some intrusive thoughts. When she was on 200 mg of Zoloft her thoughts were not as intrusive but her anxiety still persisted. Her anxiety has affected her outlook toward work where she does not want to go. This past week, she reported having thoughts and feelings of be trapped at work. 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 We discussed plan to taper off Effexor. Clomipramine and Zoloft were provided as options in conjunction with metformin to protect the patient from the weight gain side effects. She decided on Zoloft. Interval Progress: Slightly worse Risks and benefits of the medication, including any black box warnings, were discussed with the patient. Social History: See HPI PATIENT DATA: Generalized Anxiety Disorder Scale (MARII-7) MARII - 7 SCORES 09/15/2021 10/30/2021 11/24/2021 MARII-7 Score 11 16 21 (0-4) minimal anxiety, (5-9) mild anxiety, (10-14) moderate anxiety, (15-21) severe anxiety Patient Health Questionnaire (PHQ-9) PHQ-9 09/15/2021 10/30/2021 11/24/2021 Score 9 14 17 (0-4) minimal depression, (5-9) mild depression, (10-14) moderate depression, (15-19) moderately severe depression, (20-27) severe depression ROS: General: Negative for fever, malaise, unintentional weight loss HEENT: Negative for recent changes in vision or hearing, no nasal drainage Respiratory: Negative for cough, wheezing or SOB Cardiovascular: Negative for chest pain GI: Negative for nausea, vomiting, change in bowel habits MUSCULOSKELETAL: Negative for acute back or joint pain SKIN: Negative for rash NEURO: Negative for headaches, seizures, focal neurological deficits All other systems negative. VITAL SIGNS: BP Temp Pulse Resp SpO2 MENTAL STATUS EXAMINATION: Appearance: Appropriately groomed, appears stated age Behavior: Appropriately engaged Psychomotor: No psychomotor agitation Cognition Level of Consciousness: Awake and alert. No fluctuation in wakefulness. Orientation: Grossly oriented Memory: Intact Attention/Concentration: Good Fund of Knowledge: Able to demonstrate an awareness of current events. Mood: Depressed, tearful Affect: full Speech/Language: Appropriate tone, prosody, amy, phonetics, and syntax Thought Form: Goal-directed. No loosening of associations. Thought Content: No delusions noted or endorsed. Perceptual Disturbances: Did not appear to respond to auditory stimuli. Safety: Suicidal Ideations: No suicidal ideation, intent or plan. Homicidal Ideations: No homicidal ideation, intent or plan. Insight: Appropriate Judgment: Appropriate I spent a total of 38 minutes on the date of the service which included preparing to see the patient, [id number] patient care, completing clinical documentation, and counseling and educating the patient/family/caregiver, ordering medications/labs. Lindsay Neville APRN.SWAPNA November 25, 2021 12:14 PM This note was partially generated using [employer] voice recognition system. Note was reviewed for accuracy. There may be minor misspellings or grammar miscues with [employer] voice recognition. Associated attestation - Lindsay Neville APRN.CNP - 11/25/2021 11:49 PM EDT I, Lindsay Neville APRN.CNP, personally performed the services described in this documentation. All medical record entries made by the scribe were at my direction and in my presence. I have reviewed the chart and discharge instructions (if applicable) and agree that the record reflects my personal performance and is accurate and complete. Lindsay Neville APRN.CNP November 25, 2021 11:49 PM documented in this encounter [facility] 11-23-2021 Miscellaneous Notes Patient unable to tolerate Ativan. Discussed utilizing a low dose of Valium to help with anxiety and panic symptoms. Spoke with the patient on the phone to review effects and side effects of Valium. Patient has been scheduled for a follow up visit with this provider in 2 days. documented in this encounter [facility] 11-19-2021 Miscellaneous Notes Patient has been identified by name and date of : Yes Patient phones for refill(s): Requested Prescriptions Pending Prescriptions Disp Refills sertraline (ZOLOFT) 100 mg tablet [Pharmacy Med Name: SERTRALINE HCL 100 MG TABLET] 60 tablet 5 Sig: TAKE 2 TABLETS BY MOUTH EVERY DAY Date of last office visit in primary care: 07/15/2021 Last 2 Encounter Wt Readings: Date: Wt: 09/26/2021 151 kg (333 lb) 09/24/2021 149.2 kg (329 lb) Previous labs/tests for medication: Not applicable Please advise. Thank you. Trupti Mcqueen LPN documented in this encounter [facility] 11-16-2021 Miscellaneous Notes TC to [facility] who says they have the order and the signs sales representative working on the pts machine has tried to call her and left a message. They will try again. TC to patient with this update. Pt says she has not received a message from them but she would keep an eye out for their call. This staff advised if she had not heard from them by Sunday to call our office and we would contact them again for her. BARNEY Lewis Patient calls and wanted to let provider know that she still has not heard from [facility] in regards to her CPAP Device and supplies. Clementina Peña RN documented in this encounter [facility] 11-04-2021 Miscellaneous Notes Patient reports nausea from the increase in Venlafaxine dose. Prescribed Zofran as needed to help with nausea. documented in this encounter [facility] 10-31-2021 Instructions Lindsay Neville APRN.CNP - 10/31/2021 3:27 PM EDT Irina Burnham, It was good to talk with you today. Below is a summary of the plan that we discussed during your appointment for reference. Of course, if you have any questions or concerns do not hesitate to reach out to me via a message or call. Lindsay Reyes APRN.CNP PLAN AND FOLLOW UP: YOU SHOULD SEEK IMMEDIATE MEDICAL ATTENTION AT THE NEAREST EMERGENCY DEPARTMENT OR BY CALLING 911, IF ANY OF THE FOLLOWING OCCURS: - New or worsening thoughts of harming yourself (suicidal thoughts) or others (homicidal thoughts) - Not feeling safe at home or worrying about your ability to remain safe at home If you are having thoughts of harming yourself or others, then you can: - Call the National Suicide Hotline at 5-456-KSYVHTR ( ) or 8-824-731-TALK (6509) - Text 4HOPE to 602191 Medication Update: Venlafaxine 150 mg XR - take 1 capsule once daily with food. Zoloft 100 mg - take 1/2 tablet once daily for 7 days and then stop. Continue Buspar at the same dose. Ativan 0.5 mg - take 1/2 to 1 tablet once daily as needed for increased feelings of anxiety or panic. Next appointment: --Schedule in 4 weeks or sooner if needed -- You may call the department appointment line at [phone] to schedule your appointment. -- Please call my nurse Yecenia at [phone] or send me a message in Addy with any questions or concerns between appointments. documented in this encounter [facility] 10-31-2021 History of Presen t illness Narrative Images from the original note were not included. PSYC FOLLOW UP - PSYCHIATRIC PROGRESS NOTE DIAGNOSIS: Generalized Anxiety Disorder MDD, moderate, recurrent GAF: -60-51 Moderate symptoms or moderate difficulty in social, occupational or school functioning. TREATMENT PLAN: Increase Venlafaxine to address her anxiety symptoms. Gradually decrease and discontinue Zoloft due to weight gain side effects. Continue Buspar at the same dose. Utilize Ativan as needed for increased episodes of anxiety. Follow up in 4 weeks. Medication Update: Venlafaxine 150 mg XR - take 1 capsule once daily with food. Zoloft 100 mg - take 1/2 tablet once daily for 7 days and then stop. Continue Buspar at the same dose. Ativan 0.5 mg - take 1/2 to 1 tablet once daily as needed for increased feelings of anxiety or panic. The effects and side effects of all the medications were reviewed in detail with the patient. PDMP report was reviewed and found to be appropriate without any signs of misuse or diversion. Patient is in agreement with the treatment plan and aware to reach out with any questions, concerns, or worsening of symptoms prior to the next appointment. CC: Follow up regarding mood and anxiety With the patient consent, visit was performed virtually. HPI: Janell Thornton is a 26 year old Female with a history of MARII and MDD presenting today for follow-up. Date of last visit: 09/15/2021 Plan from last visit: Increase Venlafaxine and continue gradually reducing the Zoloft due to patient reporting weight gain side effects. Continue Buspar at the same dose. Encouraged to follow up regarding setting up individual psychotherapy. Follow up in 4 weeks. Today Janell shares that she is doing okay. She had contacted the provider 2 weeks ago with increase in depressive symptoms. We had decided to increase the Venlafaxine at that time. Shares that she has starting to feel better more recently. Noticed that she is more anxious. She finds herself over thinking and getting in a negative thought cycle. Struggles with catastrophic thinking. In the past she has struggled with panic symptoms. Struggles with somatic symptoms of anxiety such as nausea, palpitations, and sometimes shortness of breath. Has ativan but she rarely uses it. Her prescription and PDMP report showed that it was refilled a year ago last. Patient has been tolerating Venlafaxine and Buspar without any side effects. Interval Progress: Slightly worse Risks and benefits of the medication, including any black box warnings, were discussed with the patient. Social History: See HPI. No change PATIENT DATA: Generalized Anxiety Disorder Scale (MARII-7) MARII - 7 SCORES 09/12/2021 09/15/2021 10/30/2021 MARII-7 Score 11 11 16 (0-4) minimal anxiety, (5-9) mild anxiety, (10-14) moderate anxiety, (15-21) severe anxiety Patient Health Questionnaire (PHQ-9) PHQ-9 09/12/2021 09/15/2021 10/30/2021 Score 9 9 14 (0-4) minimal depression, (5-9) mild depression, (10-14) moderate depression, (15-19) moderately severe depression, (20-27) severe depression ROS: General: Negative for fever, malaise, unintentional weight loss HEENT: Negative for recent changes in vision or hearing, no nasal drainage Respiratory: Negative for cough, wheezing or SOB Cardiovascular: Negative for chest pain GI: Negative for nausea, vomiting, change in bowel habits MUSCULOSKELETAL: Negative for acute back or joint pain SKIN: Negative for rash NEURO: Negative for headaches, seizures, focal neurological deficits All other systems negative. VITAL SIGNS: BP Temp Pulse Resp SpO2 MENTAL STATUS EXAMINATION: Appearance: Appropriately groomed, appears stated age Behavior: Appropriately engaged Psychomotor: No psychomotor agitation Cognition Level of Consciousness: Awake and alert. No fluctuation in wakefulness. Orientation: Grossly oriented Memory: Intact Attention/Concentration: Good Fund of Knowledge: Able to demonstrate an awareness of current events. Mood: Anxious Affect: Congruent to mood Speech/Language: Appropriate tone, prosody, amy, phonetics, and syntax Thought Form: Goal-directed. No loosening of associations. Thought Content: No delusions noted or endorsed. Perceptual Disturbances: Did not appear to respond to auditory stimuli. Safety: Suicidal Ideations: No suicidal ideation, intent or plan. Homicidal Ideations: No homicidal ideation, intent or plan. Insight: Appropriate Judgment: Appropriate I spent a total of 38 minutes on the date of the service which included preparing to see the patient, [id number] patient care, completing clinical documentation, and counseling and educating the patient/family/caregiver, ordering medications/labs. Lindsay Neville APRN.SWAPNA October 31, 2021 2:59 PM This note was partially generated using [employer] voice recognition system. Note was reviewed for accuracy. There may be minor misspellings or grammar miscues with [employer] voice recognition. documented in this encounter [facility] 10-26-2021 Miscellaneous Notes Due to patient's insurance, PAP orders and documentation faxed to [email or web address]. Patient updated via . BARNEY Lewis Pt contacted office on 09/26, 10/11, and today 10/25 for results of PSG. In scanned documents under 09/28. Please advise. Thank you. BARNEY Lewis documented in this encounter [facility] 10-20-2021 Miscellaneous Notes Patient has been identified by name and date of : Yes Pharmacy phones for refill(s): Pending Prescriptions Disp Refills TOPIRAMATE 100 MG TABLET 30 tablet 2 Sig: TAKE 1 TABLET BY MOUTH EVERYDAY AT BEDTIME DEO: Yes Date of last office visit in Neurology: NAYELI 07/22/2021 with [facility]N No appointment scheduled [facility] Notes: Assessment and Plan: ASSESSMENT/PLAN: 1. Intractable migraine without aura and without status migrainosus - ICD9: 346.11, ICD10: G43.019 (primary diagnosis) Patient with intractable migraines, with initial migraines occurring approximately 9 years ago. Initially would occur now and then, but now daily with no obvious provoking factor for change in frequency including no endorsement of OTC med overuse. Given a family history of cerebral aneurysm feel appropriate for head imaging and will order MRI brain wwo contrast, given the change in pattern of headache. Otherwise, non-focal neuro exam. For now will continue to treat with current meds but increase dosing: -Will not treat with medrol dav given prior use of steroids with no influence on headaches. -For preventative will increase Topamax to 75mg QHS this week and then further increase to 100mg QHS the following week. Reviewed SE and ADRs with pt including interaction with OCPs and impact on development. Pt has tolerated the medication thus far. Pt will contact us in about 3 weeks at such time will determine further changes to the medication based on the response to the increased dose. -For abortive therapy will continue with naratriptan. Uncertain the response pt had with use of Maxalt as tolerated previously. Possible increase in 5ht given pt on Zoloft and Buspar as well. Note pt also with known depression, and mood swing may have been unrelated to medications. 3. CALEB (obstructive sleep apnea) - ICD9: 327.23, ICD10: G47.33 Prior sleep study negative as above, but pt endorsing snoring, witnessed apneas, dry mouth in AM, EDS, AM headaches. Pt feels symptoms worsening. Thus, will repeat PSG to evaluate for CALEB. Previously dx of CALEB when using AASM guidelines but last sleep study with CMS guidelines unremarkable including normal overall RDI. That said REM indices were elevated. Risk factors of obesity and PCOS. - POLYSOMNOGRAM (PSG) 4. Family history of ischemic heart disease and other diseases of the circulatory system - ICD9: V17.49, ICD10: Z82.49 MRI brain as above. Last 2 Encounter Wt Readings: Date: Wt: 09/26/2021 151 kg (333 lb) 09/24/2021 149.2 kg (329 lb) Please advise. Thank you. BARNEY Lewis documented in this encounter [facility] 09-27-2021 Miscellaneous Notes Patient updated Via . BARNEY Lewis Faxes with PSG results received. Placed in scanning as well as on providers desk for review. BARNEY Lewis In looking over patient chart it seems PSG was ordered on 07/22/2021. However, there is nothing in the patient chart in terms of results or where the testing was completed. TCH to [facility] who says PSG was completed on September 01. [facility] faxing over results. TC to patient with update but no answer. Left message to return call. If patient calls back, please advise that we have results but Dr. Li still has to review when he returns to the office. BARNEY Lewis documented in this encounter [facility] 09-26-2021 History of Presen t illness Narrative This note was created using [employer]. Subjective Janell Thornton is a 26 year old female. HPI Patient presents with a sore throat when she swallows on the left side of her throat over the past 2 days. She was seen about a week ago for URI symptoms. She was placed on prednisone. She was seen here 2 days ago for conjunctivitis as well. She states her sinus symptoms have improved. She denies fever. No ear pain. No chest pain or shortness of breath. Review of Systems Constitutional: Negative. HENT: Positive for congestion, postnasal drip, sinus pressure and sore throat. Negative for ear pain. Eyes: Negative. Respiratory: Negative. Cardiovascular: Negative. Gastrointestinal: Negative. All other systems reviewed and are negative. PAST MEDICAL HISTORY Diagnosis Date Abdominal pain 03/27/2014 Patient has abdominal pain , had ct at which was normal, document scanned Acanthosis nigricans Acne Acute nonintractable headache 03/22/2015 Headache for the past 4 months. Not the worst headache, Not worsening. Triggers include coughing and running. The headache is in the forehead area. It is a 7/10 headache, excedrin helps it to go away Does not get a nausea. Touching and combing her hair gives her headache. Then she says everyday she gets a headache. Smokes a half pack. Never seen a neurologist. ADD (attention deficit disorder) Body piercing left lower lip, left ear Closed fracture of lower end of radius with ulna 1995 buckle fracture Croup recurrent episodes Depression Hirsutism Migraine Morbid obesity (HCC) Oligomenorrhea CALEB (obstructive sleep apnea) 2010 Other acne 08/16/2006 PCOS (polycystic ovarian syndrome) Unspecified asthma(493.90) Exercise induced Asthma Current Outpatient Medications Medication Sig Dispense Refill ciprofloxacin HCl (CILOXAN) 0.3 % ophthalmic solution Use 1-2 drops inside left lower eyelid(s) every 2 hours while awake for 2 days, then 1-2 drops every 4 hours for next 5 days. 2.5 mL 1 predniSONE (DELTASONE) 10 mg tablet Take 4 tabs daily for 3 days, then 2 tabs daily for 3 days, then 1 tab daily for 3 days with food. 21 tablet 0 fluticasone (FLONASE) 50 mcg/actuation nasal spray Use 2 Sprays in each nostril once daily. Rinse mouth after use. 11.1 mL 0 sertraline (ZOLOFT) 100 mg tablet Take 1 tablet by mouth once daily. 60 tablet 5 venlafaxine (EFFEXOR) 75 mg tablet Take 1 tablet by mouth daily with lunch. 30 tablet 1 busPIRone (BUSPAR) 15 mg tablet Take 1 tablet by mouth three times daily. 90 tablet 1 topiramate (TOPAMAX) 100 mg tablet Take 1 tablet by mouth daily at bedtime. 30 tablet 2 cyclobenzaprine (FLEXERIL) 10 mg tablet Take 0.5-1 tablets by mouth three times daily as needed for Muscle Spasm. 30 tablet 1 albuterol (PROVENTIL) 2.5 mg /3 mL (0.083 %) nebulizer solution Use 3 mL via nebulizer every 6 hours as needed for Wheezing/Shortness of Breath. 1 Package 0 albuterol HFA (PROVENTIL HFA, VENTOLIN HFA) 90 mcg/actuation inhaler Inhale 2 Puffs as instructed every 4 hours as needed. 18 g 0 fluticasone (FLONASE) 50 mcg/actuation nasal spray Use 2 Sprays in each nostril once daily. Rinse mouth after use. 1 Bottle 0 naratriptan (AMERGE) 2.5 mg tablet Take 1 tablet by mouth as needed. 2.5 mg at onset of headache, may repeat in 4 hours if needed (Patient not taking: Reported on 07/22/2021 ) 10 tablet 1 CPAP No current facility-administered medications for this visit. PAST SURGICAL HISTORY Procedure Laterality Date ADENOIDECTOMY PRIMARY <AGE 12 1997 Adenoidectomy CLOSED TX ULNAR FRACTURE PROXIMAL END W/O MANJ 07/08/00 TONSILLECTOMY PRIMARY/SECONDARY <AGE 12 1997 Tonsillectomy FAMILY HISTORY Problem Relation Age of Onset None Mother other (migraine) Mother also father Diabetes Father Coronary Artery Disease Paternal Grandmother Diabetes Paternal Grandmother also grandfather and several aunts/uncles Hypertension Paternal Grandmother Emphysema Paternal Grandfather Diabetes Paternal Aunt Diabetes Paternal Uncle Diabetes Other great grandma other (Other) Other paternal great uncles and aunts x4 Social History Tobacco Use Smoking status: Former Smoker Packs/day: 0.50 Years: 7.00 Pack years: 3.50 Types: Cigarettes Smokeless tobacco: Never Used Tobacco comment: quit 5 months ago Vaping Use Vaping Use: current everyday user Substances: Nicotine Substance Use Topics Alcohol use: Yes Comment: occasionally Drug use: No Objective BP 126/78 Pulse 98 Temp 37.2 C (99 F) Resp 16 Wt (!) 151 kg (333 lb) LMP 08/29/2018 (LMP Unknown) SpO2 96% BMI 61.90 kg/m Physical Exam Vitals reviewed. Constitutional: Appearance: Normal appearance. HENT: Head: Normocephalic and atraumatic. Right Ear: Ear canal and external ear normal. Left Ear: Tympanic membrane, ear canal and external ear normal. Ears: Comments: PRINCESS on the right Nose: Congestion present. Mouth/Throat: Mouth: Mucous membranes are moist. Pharynx: Oropharynx is clear. No oropharyngeal exudate or posterior oropharyngeal erythema. Comments: Clear/white post nasal drip Cardiovascular: Rate and Rhythm: Normal rate and regular rhythm. Heart sounds: Normal heart sounds. Pulmonary: Effort: Pulmonary effort is normal. Breath sounds: Normal breath sounds. Musculoskeletal: Cervical back: Neck supple. Lymphadenopathy: Cervical: No cervical adenopathy. Skin: General: Skin is warm and dry. Neurological: General: No focal deficit present. Mental Status: She is alert and oriented to person, place, and time. Assessment and Plan ASSESSMENT/PLAN: 1. Sore throat - ICD9: 462, ICD10: J02.9 - Alere Strep Test negative, no culture pending - Discussed supportive care treatment with fluids, rest and analgesia. - The patient may also use warm salt water gargles, throat lozenges and/or OTC throat spray as needed. - The patient should follow up in 3-5 days if symptoms persist or worsen - STREP A MOLECULAR (POC) Candace Navarro PA-C documented in this encounter [facility] 09-24-2021 History of Presen t illness Narrative Subjective HPI HPI Janell Thornton is a 26 year old female who presents today for CC of suspected L pink eye that started a few days ago. C/o irritation, redness, goupy matting this AM. No injury to the eye. No visual changes, such as blurred vision or double vision. She's currently being treated for sinus infection with oral abx. Pt does report that she's a contact lens wearer, but she has solely been wearing her glasses for the past 3 weeks. BP 128/80 Pulse 88 Temp 36.7 C (98.1 F) Resp 16 Wt (!) 149.2 kg (329 lb) LMP 08/29/2018 (LMP Unknown) SpO2 97% BMI 61.16 kg/m ALLERGIES No Known Allergies ACTIVE PROBLEM LIST Unspecified Asthma(493.90) Polycystic Ovaries Add (Attention Deficit Disorder) Without Hyperactivity Caleb (Obstructive Sleep Apnea) Severe Episode of Recurrent Major Depressive Disorder, Without Psychotic Features (Hcc) Generalized Anxiety Disorder Leukocytosis Depression With Anxiety Morbid Obesity With Body Mass Index of 50.0-59.9 in Adult (Hcc) Family History Problem Relation Age of Onset None Mother other (migraine) Mother also father Diabetes Father Coronary Artery Disease Paternal Grandmother Diabetes Paternal Grandmother also grandfather and several aunts/uncles Hypertension Paternal Grandmother Emphysema Paternal Grandfather Diabetes Paternal Aunt Diabetes Paternal Uncle Diabetes Other great grandma other (Other) Other paternal great uncles and aunts x4 Social History Tobacco Use Smoking status: Former Smoker Packs/day: 0.50 Years: 7.00 Pack years: 3.50 Types: Cigarettes Smokeless tobacco: Never Used Tobacco comment: quit 5 months ago Vaping Use Vaping Use: current everyday user Substances: Nicotine Substance Use Topics Alcohol use: Yes Comment: occasionally Drug use: No ! Review of Systems Constitutional: Negative for chills, fever and malaise/fatigue. HENT: Positive for congestion. Negative for ear pain, sinus pain and sore throat. Eyes: Positive for discharge and redness. Negative for blurred vision, double vision, photophobia and pain. Respiratory: Negative for cough. Objective BP 128/80 Pulse 88 Temp 36.7 C (98.1 F) Resp 16 Wt (!) 149.2 kg (329 lb) LMP 08/29/2018 (LMP Unknown) SpO2 97% BMI 61.16 kg/m Physical Exam HENT: Head: Normocephalic. Right Ear: Tympanic membrane, ear canal and external ear normal. No drainage. No middle ear effusion. Tympanic membrane is not perforated, erythematous, retracted or bulging. Left Ear: Ear canal normal. No drainage. No middle ear effusion. Tympanic membrane is not perforated, erythematous, retracted or bulging. Nose: No rhinorrhea. Right Sinus: No maxillary sinus tenderness or frontal sinus tenderness. Left Sinus: No maxillary sinus tenderness or frontal sinus tenderness. Mouth/Throat: Pharynx: Uvula midline. No oropharyngeal exudate or posterior oropharyngeal erythema. Tonsils: No tonsillar abscesses. Eyes: General: Right eye: No discharge. Left eye: Discharge present. Conjunctiva/sclera: Right eye: Right conjunctiva is not injected. Left eye: Left conjunctiva is injected (Mild). Pupils: Pupils are equal, round, and reactive to light. Cardiovascular: Rate and Rhythm: Normal rate and regular rhythm. Heart sounds: S1 normal and S2 normal. No friction rub. Pulmonary: Effort: Pulmonary effort is normal. Breath sounds: Normal breath sounds. No wheezing, rhonchi or rales. Lymphadenopathy: Head: Right side of head: No submental, submandibular, tonsillar, preauricular, posterior auricular or occipital adenopathy. Left side of head: No submental, submandibular, tonsillar, preauricular, posterior auricular or occipital adenopathy. Cervical: Right cervical: No superficial or posterior cervical adenopathy. Left cervical: No superficial or posterior cervical adenopathy. Neurological: Mental Status: She is oriented to person, place, and time. ASSESSMENT/PLAN: 1. Acute bacterial conjunctivitis of left eye - ICD9: 372.03, ICD10: H10.32 - see medication orders - course and contagiousness issues discussed, including hand washing. - Instructed to call if high fever, development of periorbital redness or swelling, eye pain, visual changes, concerns or if symptoms persist. - CIPROFLOXACIN 0.3 % EYE DROPS Pt advised to see optometry if symptoms persist or progress. Reviewed red flags with patient and when to seek care sooner. The patient indicates understanding of these issues and agrees with the plan. Rosario Ramon PA-C documented in this encounter [facility] 09-24-2021 History of Presen t illness Narrative This is an Express Care eVisit note for Janell Thornton eVisit/Questionnaire reviewed The chief complaint for the visit - Patient presents with: Eye Problem Recommendations/Treatment plan - See My Chart Message to patient Génesis De Guzman APRN.CNP Total time spent on e-Visit: 3 minutes documented in this encounter [facility] 09-20-2021 Instructions Malu Diana APRN.CNP - 09/20/2021 4:02 PM EDT Images from the original note were not included. Adult Sinusitis Patient Education What is Sinusitis? Sinusitis [rgmy-krp-[id number]] is inflammation of the sinuses or swelling of the lining of the sinus cavity or nose. During an infection the sinuses become blocked with fluid causing swelling of the lining of the sinuses. Symptoms: (viral and bacterial infections) Stuffy nose Runny nose Postnasal drip Fever Toothache Headache Tiredness Cough Sore throat Face and head pressure and or pain Common causes: 98% of sinus infections are viral caused by viruses. Risk Factors of Sinusitis Include: Allergies, air pollution, indoor humidity and outdoor temperature changes, andstructural changes in the nose may contribute to sinus pain, pressure and congestion. When to get help? Temperature greater than 100.4 F Symptoms lasting more than 10 days or worsening symptoms greater than 7-10 days. If you do not improve or worsen after a course of antibiotics, you should be re-examined. Diagnosis and Treatment: Your healthcare provider will ask a number of questions about your symptoms and how long they have occurred. If symptoms of sinusitis persist greater than 10 days, it is possible you have a bacterial sinus infection and an antibiotic is prescribed. If it is viral, antibiotics will not help. You may be instructed to take vyss-ink-owdzvts medications for symptoms. including fever reducers acetaminophen or ibuprofen, nasal saline spray, cough and cold preparations and decongestants as prescribed by the physician, nurse practitioner or physician nurse practitioner physician assistant. Self-Care and Prevention: Rest Fluids for hydration Good hand washing Humidifier Avoid smoking and exposure to second hand smoke Avoid sick contacts documented in this encounter [facility] 09-20-2021 History of Presen t illness Narrative This note was created using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 clear to auscultation. No wheezing, rhonchi, rales Heart: RRR without murmur, gallop, or rubs. Extremities: No deformities, edema, skin discoloration, clubbing or cyanosis. Good capillary refill. ASSESSMENT/PLAN: 1. Sleep apnea, unspecified type - ICD9: 780.57, ICD10: G47.30 (primary diagnosis) - CONSULT TO PSYCHIATRY 2. Other fatigue - ICD9: 780.79, ICD10: R53.83 3. Morbid obesity (HCC) - ICD9: 278.01, ICD10: E66.01 Stable - Continue current medications 4. Migraine headaches - ICD9: 346.90, ICD10: G43.909 - NARATRIPTAN 2.[address] Byrnes MD documented in this encounter [facility] 05-13-2021 Hospital Discharg e instructions Patient Education 05/13/2021 21:55:32 Headache, Migraine, Classic Migraine Headache This often severe type of headache is different from other types of headaches in that symptoms other than pain occur with the headache. Nausea and vomiting, lightheadedness, sensitivity to light (photophobia), and other visual disturbances are common migraine symptoms. The pain may last from a few hours to several days. It is not clear why migraines occur but certain factors called triggers can raise the risk of having a migraine attack. A migraine may be triggered by emotional stress or depression, or by hormone changes during the menstrual cycle. Other triggers include control pills, overuse of migraine medicines, alcohol or caffeine, foods with tyramine (such as aged cheese and wine), eyestrain, weather changes, missed meals, or too little or too much sleep. Home care Follow these tips when taking care of yourself at home: Don t drive yourself home if you were given pain medicine for your headache or are having visual symptoms. Instead, have someone else drive you home. Try to sleep when you get home. You should feel much better when you wake up. Cold can help ease migraine symptoms. Put an ice pack on your forehead or at the base of your skull. Put heat on the back of your neck to help ease any neck spasm. Drink only clear liquids or eat a light diet until your symptoms get better. This will help you avoid nausea and vomiting. How to prevent migraines Pay attention to what seems to trigger your headache. Try to avoid the triggers when you can. If you have frequent headaches, consider keeping a headache diary. In it, write down what you were doing, feeling, or eating in the hours before each headache. Show this to your healthcare provider to help find the cause of your headaches. If stress seems to be a trigger for your headaches, figure out what is causing stress in your life. Learn new ways to handle your stress. Ideas include regular exercise, biofeedback, self-hypnosis, yoga, and meditation. Talk with your healthcare provider to find out more information about managing stress. Many books and digital media are also available on this subject. Tyramine is a substance found in many foods. It can trigger a migraine in some people. These foods contain tyramine: Chocolate Yogurt All cheeses, but especially aged cheeses Smoked or pickled fish and meat, including stinson, caviar, bologna, pepperoni, and salami Liver Avocados Bananas Figs Raisins Red wine Try staying away from these foods for 1 to 2 months to see if you have fewer headaches. How to treat future headaches Take time out at the first sign of a headache, if possible. Find a quiet, dark, comfortable place to sit or lie down. Let yourself relax or sleep. Put an ice pack on your forehead or on the area of greatest pain. A heating pad and massage may help if you are having a muscle spasm and tightness in your neck. If you have been prescribed a medicine to stop a migraine headache, use this at the first warning sign of the headache for best results. First signs may be an aura or pain. If you need to take medicine often for your migraine, talk with your healthcare provider about other ways to prevent your headaches. Follow-up care Follow up with your healthcare provider, or as advised. Talk with your provider if you have frequent headaches. He or she can figure out a treatment plan. Ask if you can have medicine to take at home the next time you get a bad headache. This may keep you from having to visit the emergency department in the future. You may need to see a headache specialist (neurologist) if you continue to have headaches. When to seek medical advice Call your healthcare provider right away if any of these occur: Your head pain gets worse, or doesn t get better within 24 hours You can t keep liquids down (repeated vomiting) Pain in your sinuses, ears, or throat Fever of 100.4 F (38 C) or higher, or as directed by your healthcare provider Stiff neck Extreme drowsiness, confusion, or fainting Dizziness, or dizziness with spinning sensation (vertigo) Weakness in an arm or leg, or on one side of your face Difficulty talking or seeing [id number] [employer]. [address] [place] [id number]. All rights reserved. This information is not intended as a substitute for professional medical care. Always follow your healthcare professional's instructions. Follow Up Care 05/13/2021 20:17:55 With:RD BYRNES MD Address: [address] [place] [address]- When:2-4 days [facility] documented as of this encounter (statuses as of 07/15/2021) [facility] History of Past illness Narrative* Problem Noted Date Resolved Date ADHD (attention deficit hyperactivity disorder) 09/18/2012 09/18/2012 Obesity, Class III, BMI 40-49.9 (morbid obesity) 08/16/2006 11/05/2020 Croup 07/30/2006 03/29/2009 documented as of this encounter (statuses as of 07/15/2021) [facility] History of Past illness Narrative* Problem Noted Date Resolved Date ADHD (attention deficit hyperactivity disorder) 09/18/2012 09/18/2012 Obesity, Class III, BMI 40-49.9 (morbid obesity) 08/16/2006 11/05/2020 Croup 07/30/2006 03/29/2009 documented as of this encounter (statuses as of 07/22/2021) [facility] History of Past illness Narrative* Problem Noted Date Resolved Date ADHD (attention deficit hyperactivity disorder) 09/18/2012 09/18/2012 Obesity, Class III, BMI 40-49.9 (morbid obesity) 08/16/2006 11/05/2020 Croup 07/30/2006 03/29/2009 documented as of this encounter (statuses as of 07/22/2021) [facility] History of Past illness Narrative* Problem Noted Date Resolved Date ADHD (attention deficit hyperactivity disorder) 09/18/2012 09/18/2012 Obesity, Class III, BMI 40-49.9 (morbid obesity) 08/16/2006 11/05/2020 Croup 07/30/2006 03/29/2009 documented as of this encounter (statuses as of 07/25/2021) [facility] History of Past illness Narrative* Problem Noted Date Resolved Date ADHD (attention deficit hyperactivity disorder) 09/18/2012 09/18/2012 Obesity, Class III, BMI 40-49.9 (morbid obesity) 08/16/2006 11/05/2020 Croup 07/30/2006 03/29/2009 documented as of this encounter (statuses as of 07/25/2021) [facility] History of Past illness Narrative* Problem Noted Date Resolved Date ADHD (attention deficit hyperactivity disorder) 09/18/2012 09/18/2012 Obesity, Class III, BMI 40-49.9 (morbid obesity) 08/16/2006 11/05/2020 Croup 07/30/2006 03/29/2009 documented as of this encounter (statuses as of 08/12/2021) [facility] History of Past illness Narrative* Problem Noted Date Resolved Date ADHD (attention deficit hyperactivity disorder) 09/18/2012 09/18/2012 Obesity, Class III, BMI 40-49.9 (morbid obesity) 08/16/2006 11/05/2020 Croup 07/30/2006 03/29/2009 documented as of this encounter (statuses as of 08/12/2021) [facility] History of Past illness Narrative* Problem Noted Date Resolved Date ADHD (attention deficit hyperactivity disorder) 09/18/2012 09/18/2012 Obesity, Class III, BMI 40-49.9 (morbid obesity) 08/16/2006 11/05/2020 Croup 07/30/2006 03/29/2009 documented as of this encounter (statuses as of 08/22/2021) [facility] History of Past illness Narrative* Problem Noted Date Resolved Date ADHD (attention deficit hyperactivity disorder) 09/18/2012 09/18/2012 Obesity, Class III, BMI 40-49.9 (morbid obesity) 08/16/2006 11/05/2020 Croup 07/30/2006 03/29/2009 documented as of this encounter (statuses as of 09/09/2021) [facility] History of Past illness Narrative* Problem Noted Date Resolved Date ADHD (attention deficit hyperactivity disorder) 09/18/2012 09/18/2012 Obesity, Class III, BMI 40-49.9 (morbid obesity) 08/16/2006 11/05/2020 Croup 07/30/2006 03/29/2009 documented as of this encounter (statuses as of 09/15/2021) [facility] History of Past illness Narrative* Problem Noted Date Resolved Date ADHD (attention deficit hyperactivity disorder) 09/18/2012 09/18/2012 Obesity, Class III, BMI 40-49.9 (morbid obesity) 08/16/2006 11/05/2020 Croup 07/30/2006 03/29/2009 documented as of this encounter (statuses as of 09/20/2021) [facility] History of Past illness Narrative* Problem Noted Date Resolved Date ADHD (attention deficit hyperactivity disorder) 09/18/2012 09/18/2012 Obesity, Class III, BMI 40-49.9 (morbid obesity) 08/16/2006 11/05/2020 Croup 07/30/2006 03/29/2009 documented as of this encounter (statuses as of 09/24/2021) [facility] History of Past illness Narrative* Problem Noted Date Resolved Date ADHD (attention deficit hyperactivity disorder) 09/18/2012 09/18/2012 Obesity, Class III, BMI 40-49.9 (morbid obesity) 08/16/2006 11/05/2020 Croup 07/30/2006 03/29/2009 documented as of this encounter (statuses as of 09/24/2021) [facility] History of Past illness Narrative* Problem Noted Date Resolved Date ADHD (attention deficit hyperactivity disorder) 09/18/2012 09/18/2012 Obesity, Class III, BMI 40-49.9 (morbid obesity) 08/16/2006 11/05/2020 Croup 07/30/2006 03/29/2009 documented as of this encounter (statuses as of 09/26/2021) [facility] History of Past illness Narrative* Problem Noted Date Resolved Date ADHD (attention deficit hyperactivity disorder) 09/18/2012 09/18/2012 Obesity, Class III, BMI 40-49.9 (morbid obesity) 08/16/2006 11/05/2020 Croup 07/30/2006 03/29/2009 documented as of this encounter (statuses as of 09/27/2021) [facility] History of Past illness Narrative* Problem Noted Date Resolved Date ADHD (attention deficit hyperactivity disorder) 09/18/2012 09/18/2012 Obesity, Class III, BMI 40-49.9 (morbid obesity) 08/16/2006 11/05/2020 Croup 07/30/2006 03/29/2009 documented as of this encounter (statuses as of 10/12/2021) [facility] History of Past illness Narrative* Problem Noted Date Resolved Date ADHD (attention deficit hyperactivity disorder) 09/18/2012 09/18/2012 Obesity, Class III, BMI 40-49.9 (morbid obesity) 08/16/2006 11/05/2020 Croup 07/30/2006 03/29/2009 documented as of this encounter (statuses as of 10/17/2021) [facility] History of Past illness Narrative* Problem Noted Date Resolved Date ADHD (attention deficit hyperactivity disorder) 09/18/2012 09/18/2012 Obesity, Class III, BMI 40-49.9 (morbid obesity) 08/16/2006 11/05/2020 Croup 07/30/2006 03/29/2009 documented as of this encounter (statuses as of 10/20/2021) [facility] History of Past illness Narrative* Problem Noted Date Resolved Date ADHD (attention deficit hyperactivity disorder) 09/18/2012 09/18/2012 Obesity, Class III, BMI 40-49.9 (morbid obesity) 08/16/2006 11/05/2020 Croup 07/30/2006 03/29/2009 documented as of this encounter (statuses as of 10/26/2021) [facility] History of Past illness Narrative* Problem Noted Date Resolved Date ADHD (attention deficit hyperactivity disorder) 09/18/2012 09/18/2012 Obesity, Class III, BMI 40-49.9 (morbid obesity) 08/16/2006 11/05/2020 Croup 07/30/2006 03/29/2009 documented as of this encounter (statuses as of 11/01/2021) [address]-2013 History of Past illness Narrative* Problem Noted Date Resolved Date ADHD (attention deficit hyperactivity disorder) 09/18/2012 09/18/2012 Obesity, Class III, BMI 40-49.9 (morbid obesity) 08/16/2006 11/05/2020 Croup 07/30/2006 03/29/2009 documented as of this encounter (statuses as of 11/03/2021) [facility] History of Past illness Narrative* Problem Noted Date Resolved Date ADHD (attention deficit hyperactivity disorder) 09/18/2012 09/18/2012 Obesity, Class III, BMI 40-49.9 (morbid obesity) 08/16/2006 11/05/2020 Croup 07/30/2006 03/29/2009 documented as of this encounter (statuses as of 11/04/2021) [facility] History of Past illness Narrative* Problem Noted Date Resolved Date ADHD (attention deficit hyperactivity disorder) 09/18/2012 09/18/2012 Obesity, Class III, BMI 40-49.9 (morbid obesity) 08/16/2006 11/05/2020 Croup 07/30/2006 03/29/2009 documented as of this encounter (statuses as of 11/16/2021) [facility] History of Past illness Narrative* Problem Noted Date Resolved Date ADHD (attention deficit hyperactivity disorder) 09/18/2012 09/18/2012 Obesity, Class III, BMI 40-49.9 (morbid obesity) 08/16/2006 11/05/2020 Croup 07/30/2006 03/29/2009 documented as of this encounter (statuses as of 11/19/2021) [facility] History of Past illness Narrative* Problem Noted Date Resolved Date ADHD (attention deficit hyperactivity disorder) 09/18/2012 09/18/2012 Obesity, Class III, BMI 40-49.9 (morbid obesity) 08/16/2006 11/05/2020 Croup 07/30/2006 03/29/2009 documented as of this encounter (statuses as of 11/23/2021) [facility] History of Past illness Narrative* Problem Noted Date Resolved Date ADHD (attention deficit hyperactivity disorder) 09/18/2012 09/18/2012 Obesity, Class III, BMI 40-49.9 (morbid obesity) 08/16/2006 11/05/2020 Croup 07/30/2006 03/29/2009 documented as of this encounter (statuses as of 11/26/2021) [facility] History of Past illness Narrative* Problem Noted Date Resolved Date ADHD (attention deficit hyperactivity disorder) 09/18/2012 09/18/2012 Obesity, Class III, BMI 40-49.9 (morbid obesity) 08/16/2006 11/05/2020 Croup 07/30/2006 03/29/2009 documented as of this encounter (statuses as of 12/09/2021) [facility] History of Past illness Narrative* Problem Noted Date Resolved Date ADHD (attention deficit hyperactivity disorder) 09/18/2012 09/18/2012 Obesity, Class III, BMI 40-49.9 (morbid obesity) 08/16/2006 11/05/2020 Croup 07/30/2006 03/29/2009 documented as of this encounter (statuses as of 12/26/2021) [facility] History of Past illness Narrative* Problem Noted Date Resolved Date ADHD (attention deficit hyperactivity disorder) 09/18/2012 09/18/2012 Obesity, Class III, BMI 40-49.9 (morbid obesity) 08/16/2006 11/05/2020 Croup 07/30/2006 03/29/2009 documented as of this encounter (statuses as of 01/05/2022) [facility] History of Past illness Narrative* Problem Noted Date Resolved Date ADHD (attention deficit hyperactivity disorder) 09/18/2012 09/18/2012 Obesity, Class III, BMI 40-49.9 (morbid obesity) 08/16/2006 11/05/2020 Croup 07/30/2006 03/29/2009 documented as of this encounter (statuses as of 01/09/2022) [facility] History of Past illness Narrative* Problem Noted Date Resolved Date ADHD (attention deficit hyperactivity disorder) 09/18/2012 09/18/2012 Obesity, Class III, BMI 40-49.9 (morbid obesity) 08/16/2006 11/05/2020 Croup 07/30/2006 03/29/2009 documented as of this encounter (statuses as of 01/20/2022) [address]-2013 History of Past illness Narrative* Problem Noted Date Resolved Date ADHD (attention deficit hyperactivity disorder) 09/18/2012 09/18/2012 Obesity, Class III, BMI 40-49.9 (morbid obesity) 08/16/2006 11/05/2020 Croup 07/30/2006 03/29/2009 documented as of this encounter (statuses as of 02/07/2022) [facility] History of Past illness Narrative* Problem Noted Date Resolved Date ADHD (attention deficit hyperactivity disorder) 09/18/2012 09/18/2012 Obesity, Class III, BMI 40-49.9 (morbid obesity) 08/16/2006 11/05/2020 Croup 07/30/2006 03/29/2009 documented as of this encounter (statuses as of 02/15/2022) [facility] History of Past illness Narrative* Problem Noted Date Resolved Date ADHD (attention deficit hyperactivity disorder) 09/18/2012 09/18/2012 Obesity, Class III, BMI 40-49.9 (morbid obesity) 08/16/2006 11/05/2020 Croup 07/30/2006 03/29/2009 documented as of this encounter (statuses as of 03/22/2022) [facility] History of Past illness Narrative* Problem Noted Date Resolved Date ADHD (attention deficit hyperactivity disorder) 09/18/2012 09/18/2012 Obesity, Class III, BMI 40-49.9 (morbid obesity) 08/16/2006 11/05/2020 Croup 07/30/2006 03/29/2009 documented as of this encounter (statuses as of 03/28/2022) [facility] History of Past illness Narrative* Problem Noted Date Resolved Date ADHD (attention deficit hyperactivity disorder) 09/18/2012 09/18/2012 Obesity, Class III, BMI 40-49.9 (morbid obesity) 08/16/2006 11/05/2020 Croup 07/30/2006 03/29/2009 documented as of this encounter (statuses as of 04/21/2022) [facility] History of Past illness Narrative* Problem Noted Date Resolved Date ADHD (attention deficit hyperactivity disorder) 09/18/2012 09/18/2012 Obesity, Class III, BMI 40-49.9 (morbid obesity) 08/16/2006 11/05/2020 Croup 07/30/2006 03/29/2009 documented as of this encounter (statuses as of 04/22/2022) [facility] History of Past illness Narrative* Problem Noted Date Resolved Date ADHD (attention deficit hyperactivity disorder) 09/18/2012 09/18/2012 Obesity, Class III, BMI 40-49.9 (morbid obesity) 08/16/2006 11/05/2020 Croup 07/30/2006 03/29/2009 documented as of this encounter (statuses as of 05/01/2022) [facility] History of Past illness Narrative* Problem Noted Date Resolved Date ADHD (attention deficit hyperactivity disorder) 09/18/2012 09/18/2012 Obesity, Class III, BMI 40-49.9 (morbid obesity) 08/16/2006 11/05/2020 Croup 07/30/2006 03/29/2009 documented as of this encounter (statuses as of 05/10/2022) [facility] History of Past illness Narrative* Problem Noted Date Resolved Date ADHD (attention deficit hyperactivity disorder) 09/18/2012 09/18/2012 Obesity, Class III, BMI 40-49.9 (morbid obesity) 08/16/2006 11/05/2020 Croup 07/30/2006 03/29/2009 documented as of this encounter (statuses as of 05/16/2022) [facility] History of Past illness Narrative* Problem Noted Date Resolved Date ADHD (attention deficit hyperactivity disorder) 09/18/2012 09/18/2012 Obesity, Class III, BMI 40-49.9 (morbid obesity) 08/16/2006 11/05/2020 Croup 07/30/2006 03/29/2009 documented as of this encounter (statuses as of 05/22/2022) [facility] History of Past illness Narrative* Problem Noted Date Resolved Date ADHD (attention deficit hyperactivity disorder) 09/18/2012 09/18/2012 Obesity, Class III, BMI 40-49.9 (morbid obesity) 08/16/2006 11/05/2020 Croup 07/30/2006 03/29/2009 documented as of this encounter (statuses as of 05/23/2022) [address]-2013 History of Past illness Narrative* Problem Noted Date Resolved Date ADHD (attention deficit hyperactivity disorder) 09/18/2012 09/18/2012 Obesity, Class III, BMI 40-49.9 (morbid obesity) 08/16/2006 11/05/2020 Croup 07/30/2006 03/29/2009 documented as of this encounter (statuses as of 07/18/2022) [facility] History of Past illness Narrative* Problem Noted Date Resolved Date ADHD (attention deficit hyperactivity disorder) 09/18/2012 09/18/2012 Obesity, Class III, BMI 40-49.9 (morbid obesity) 08/16/2006 11/05/2020 Croup 07/30/2006 03/29/2009 documented as of this encounter (statuses as of 08/01/2022) [facility] History of Past illness Narrative* Problem Noted Date Resolved Date ADHD (attention deficit hyperactivity disorder) 09/18/2012 09/18/2012 Obesity, Class III, BMI 40-49.9 (morbid obesity) 08/16/2006 11/05/2020 Croup 07/30/2006 03/29/2009 documented as of this encounter (statuses as of 09/22/2022) [facility] History of Past illness Narrative* Problem Noted Date Diagnosed Date Resolved Date ADHD (attention deficit hype ractivity disorder) 09/18/2012 09/18/2012 Obesity, Class III, BMI 40-4 9.9 (morbid obesity) 08/16/2006 11/05/2020 Croup 07/30/2006 03/29/2009 documented as of this encounter (statuses as of 12/01/2022) [facility] History of Past illness Narrative* Problem Noted Date Diagnosed Date Resolved Date ADHD (attention deficit hype ractivity disorder) 09/18/2012 09/18/2012 Obesity, Class III, BMI 40-4 9.9 (morbid obesity) 08/16/2006 11/05/2020 Croup 07/30/2006 03/29/2009 documented as of this encounter (statuses as of 02/20/2023) [facility] No data available for this section [facility]* Diagnosis Sleep apnea, unspecified type- Primary Other fatigue Morbid obesity (HCC) Morbid obesity Migraine headaches [facility]* Diagnosis Intractable migraine without aura and without status migrainosus- Primary Migraine without aura, with intractable migraine, so stated, without mention of status migrainosus Migraine without status migrainosus, not intractable, unspecified migraine type CALEB (obstructive sleep apnea) Obstructive sleep apnea (adult) (pediatric) Family history of ischemic heart disease and other diseases of the circulatory system Chronic mixed headache syndrome Other headache syndromes Class 3 severe obesity with body mass index (BMI) of 60.0 to 69.9 in adult, unspecified obesity type, unspecified whether serious comorbidity present (HCC) [facility]* Diagnosis Anxiety with depression- Primary [facility]* Diagnosis MARII (generalized anxiety disorder)- Primary Generalized anxiety disorder Severe episode of recurrent major depressive disorder, without psychotic features (HCC) [facility]* Diagnosis Family history of ischemic heart disease and other diseases of the circulatory system Chronic mixed headache syndrome Other headache syndromes [facility] Diagnosis MARII (generalized anxiety disorder)- Primary Generalized anxiety disorder Major depressive disorder, recurrent episode, moderate (HCC) Major depressive disorder, recurrent episode, moderate [facility]* Diagnosis Acute sinusitis, recurrence not specified, unspecified location- Primary [facility]* Diagnosis Treatment not available- Primary Procedure not carried out for other reasons [facility]* Diagnosis Acute bacterial conjunctivitis of left eye- Primary [facility]* Diagnosis Sore throat- Primary Acute pharyngitis [facility] Diagnosis Migraine without status migrainosus, not intractable, unspecified migraine type [facility]* Diagnosis Obstructive sleep apnea (adult) (pediatric)- Primary [facility] Diagnosis MARII (generalized anxiety disorder)- Primary Generalized anxiety disorder Major depressive disorder, recurrent episode, moderate (HCC) Major depressive disorder, recurrent episode, moderate [facility]* Diagnosis Depression with anxiety Dysthymic disorder [facility] Diagnosis MARII (generalized anxiety disorder)- Primary Generalized anxiety disorder [facility]* Diagnosis Encounter for long-term (current) use of medications- Primary Encounter for long-term (current) use of other medications MARII (generalized anxiety disorder) Generalized anxiety disorder Mixed obsessional thoughts and acts Major depressive disorder, recurrent episode, moderate (HCC) Major depressive disorder, recurrent episode, moderate [facility]* Diagnosis MARII (generalized anxiety disorder)- Primary Generalized anxiety disorder Mixed obsessional thoughts and acts Major depressive disorder, recurrent episode, moderate (HCC) Major depressive disorder, recurrent episode, moderate [facility]* Diagnosis CALEB (obstructive sleep apnea)- Primary Obstructive sleep apnea (adult) (pediatric) Morbid obesity with body mass index of 50.0-59.9 in adult (HCC) Morbid obesity Polycystic ovaries Severe episode of recurrent major depressive disorder, without psychotic features (HCC) documented in this encounter [facility] note* Diagnosis Migraine without status migrainosus, not intractable, unspecified migraine type [facility]* Diagnosis MARII (generalized anxiety disorder)- Primary Generalized anxiety disorder Mixed obsessional thoughts and acts Recurrent major depressive disorder, in partial remission (HCC) [facility]* Diagnosis Migraine without status migrainosus, not intractable, unspecified migraine type [facility]* Diagnosis Major depressive disorder, recurrent episode, moderate (HCC)- Primary Major depressive disorder, recurrent episode, moderate MARII (generalized anxiety disorder) Generalized anxiety disorder Mixed obsessional thoughts and acts [facility]* Diagnosis Viral illness- Primary Unspecified viral infection, in conditions classified elsewhere and of unspecified site documented in this encounter [facility] note* Diagnosis Recurrent major depressive disorder, in partial remission (HCC)- Primary MARII (generalized anxiety disorder) Generalized anxiety disorder Mixed obsessional thoughts and acts [facility]* Diagnosis Migraine without status migrainosus, not intractable, unspecified migraine type [facility]* Diagnosis CALEB on CPAP- Primary Obstructive sleep apnea (adult) (pediatric) Migraine without aura and without status migrainosus, not intractable Migraine without aura, without mention of intractable migraine without mention of status migrainosus Migraine without status migrainosus, not intractable, unspecified migraine type Class 3 severe obesity with body mass index (BMI) of 60.0 to 69.9 in adult, unspecified obesity type, unspecified whether serious comorbidity present (HCC) documented in this encounter [facility] note* Diagnosis NO SHOW- Primary documented in this encounter [facility] note* Diagnosis Vitamin D deficiency- Primary Unspecified vitamin D deficiency MARII (generalized anxiety disorder) Generalized anxiety disorder Mixed obsessional thoughts and acts Recurrent major depressive disorder, in partial remission (HCC) documented in this encounter [facility] note* Diagnosis Migraine without status migrainosus, not intractable, unspecified migraine type documented in this encounter [facility] Discharge instructions No data available for this section [facility] Summary Purpose Family History No Family History Records FoundNo Family History Records FoundNo Family History Records FoundNo Family History Records FoundNo Family History Records Found Advance Directives No Advanced Directives Records FoundNo Advanced Directives Records FoundNo Advanced Directives Records FoundNo Advanced Directives Records FoundNo Advanced Directives Records Found Reason for Referral Specialty Diagnoses / Procedures Referred By Contac t Referred To Contact Diagnoses Morbid obesity with body mass index of 50.0-59.9 in adult (HCC) Procedures CONSULT [facility] OFFICE/OUTPATIENT [facility] [address] Byrnes MD [address] [place] [address] Referral ID Status Reason Start Date Expiration Date Visits Requested Visits Authorized [id number] Authorized PCP Requested Referral 2 01/04/2023 1 1 Specialty Diagnoses / Procedures Referred By Contac t Referred To Contact MR IMAGING Diagnoses Family history of ischemic heart disease and other diseases of the circulatory system Chronic mixed headache syndrome Procedures MRI BRAIN WO/W IVCON MRI BRAIN BRAIN STEM W/O W/CONTRAST MATERIAL Timmy Li Jr., MD [address] [facility] [address] [place] [address] Mr Imaging Referral ID Status Reason Start Date Expiration Date Visits Requested Visits Authorized [id number] Additional Clinical Info Needed Auto-Generat ed Referral 07/22/2021 08/21/2022 1 1 Specialty Diagnoses / Procedures Referred By Contac t Referred To Contact Diagnoses Sleep apnea, unspecified type Procedures CONSULT TO PSYCHIATRY OFFICE/OUTPATIENT [facility] [address] Byrnes MD [address] [place] [address] Referral ID Status Reason Start Date Expiration Date Visits Requested Visits Authorized [id number] Pending Review PCP Requested Referral 07/15/2021 07/15/2022 1 1 Health Concerns Infection Onset Date Last Indicated Resolved Time COVID-19 Rule-Out 04/21/2022 04/21/2022 Infection Onset Date Last Indicated Resolved Time COVID-19 Rule-Out 04/21/2022 04/21/2022 04/22/2022 4:58 AM EST Additional Source Comments INFORMATION SOURCE (unrecogn ized section and content) DATE CREATED AUTHOR AUTHOR'S ORGANIZ ATION 06/09/2021 [facility] DATE CREATED AUTHOR AUTHOR'S ORGANIZ ATION 05/25/2022 [facility] DATE CREATED AUTHOR AUTHOR'S ORGANIZ ATION 07/20/2022 [facility] ([place]) DATE CREATED AUTHOR AUTHOR'S ORGANIZ ATION 03/08/2023 [facility] Source Comments (unrecognize d section and content) In the event this informatio n is protected by the Federal Confidentiality of Alcohol and Drug Abuse Patient Records regulations: The Federal rules restrict any use of the information to criminally investigate or prosecute any alcohol or drug abuse patient.[facility] the event this information is protected by the Federal Confidentiality of Alcohol and Drug Abuse Patient Records regulations: The Federal rules restrict any use of the information to criminally investigate or prosecute any alcohol or drug abuse patient.[facility] the event this information is protected by the Federal Confidentiality of Alcohol and Drug Abuse Patient Records regulations: The Federal rules restrict any use of the information to criminally investigate or prosecute any alcohol or drug abuse patient.[facility]In the event this information is protected by the Federal Confidentiality of Alcohol and Drug Abuse Patient Records regulations: The Federal rules restrict any use of the information to criminally investigate or prosecute any alcohol or drug abuse patient.[facility]In the event this information is protected by the Federal Confidentiality of Alcohol and Drug Abuse Patient Records regulations: The Federal rules restrict any use of the information to criminally investigate or prosecute any alcohol or drug abuse patient.[facility]In the event this information is protected by the Federal Confidentiality of Alcohol and Drug Abuse Patient Records regulations: The Federal rules restrict any use of the information to criminally investigate or prosecute any alcohol or drug abuse patient.[facility]In the event this information is protected by the Federal Confidentiality of Alcohol and Drug Abuse Patient Records regulations: The Federal rules restrict any use of the information to criminally investigate or prosecute any alcohol or drug abuse patient.[facility]In the event this information is protected by the Federal Confidentiality of Alcohol and Drug Abuse Patient Records regulations: The Federal rules restrict any use of the information to criminally investigate or prosecute any alcohol or drug abuse patient.[facility]In the event this information is protected by the Federal Confidentiality of Alcohol and Drug Abuse Patient Records regulations: The Federal rules restrict any use of the information to criminally investigate or prosecute any alcohol or drug abuse patient.[facility]In the event this information is protected by the Federal Confidentiality of Alcohol and Drug Abuse Patient Records regulations: The Federal rules restrict any use of the information to criminally investigate or prosecute any alcohol or drug abuse patient.[facility]In the event this information is protected by the Federal Confidentiality of Alcohol and Drug Abuse Patient Records regulations: The Federal rules restrict any use of the information to criminally investigate or prosecute any alcohol or drug abuse patient.[facility]In the event this information is protected by the Federal Confidentiality of Alcohol and Drug Abuse Patient Records regulations: The Federal rules restrict any use of the information to criminally investigate or prosecute any alcohol or drug abuse patient.[facility]In the event this information is protected by the Federal Confidentiality of Alcohol and Drug Abuse Patient Records regulations: The Federal rules restrict any use of the information to criminally investigate or prosecute any alcohol or drug abuse patient.[facility]In the event this information is protected by the Federal Confidentiality of Alcohol and Drug Abuse Patient Records regulations: The Federal rules restrict any use of the information to criminally investigate or prosecute any alcohol or drug abuse patient.[facility]In the event this information is protected by the Federal Confidentiality of Alcohol and Drug Abuse Patient Records regulations: The Federal rules restrict any use of the information to criminally investigate or prosecute any alcohol or drug abuse patient.[facility]In the event this information is protected by the Federal Confidentiality of Alcohol and Drug Abuse Patient Records regulations: The Federal rules restrict any use of the information to criminally investigate or prosecute any alcohol or drug abuse patient.[facility] HospitalIn the event this information is protected by the Federal Confidentiality of Alcohol and Drug Abuse Patient Records regulations: The Federal rules restrict any use of the information to criminally investigate or prosecute any alcohol or drug abuse patient.[facility]In the event this information is protected by the Federal Confidentiality of Alcohol and Drug Abuse Patient Records regulations: The Federal rules restrict any use of the information to criminally investigate or prosecute any alcohol or drug abuse patient.[facility]In the event this information is protected by the Federal Confidentiality of Alcohol and Drug Abuse Patient Records regulations: The Federal rules restrict any use of the information to criminally investigate or prosecute any alcohol or drug abuse patient.[facility]In the event this information is protected by the Federal Confidentiality of Alcohol and Drug Abuse Patient Records regulations: The Federal rules restrict any use of the information to criminally investigate or prosecute any alcohol or drug abuse patient.[facility]In the event this information is protected by the Federal Confidentiality of Alcohol and Drug Abuse Patient Records regulations: The Federal rules restrict any use of the information to criminally investigate or prosecute any alcohol or drug abuse patient.[facility]In the event this information is protected by the Federal Confidentiality of Alcohol and Drug Abuse Patient Records regulations: The Federal rules restrict any use of the information to criminally investigate or prosecute any alcohol or drug abuse patient.[facility] HospitalIn the event this information is protected by the Federal Confidentiality of Alcohol and Drug Abuse Patient Records regulations: The Federal rules restrict any use of the information to criminally investigate or prosecute any alcohol or drug abuse patient.[facility] HospitalIn the event this information is protected by the Federal Confidentiality of Alcohol and Drug Abuse Patient Records regulations: The Federal rules restrict any use of the information to criminally investigate or prosecute any alcohol or drug abuse patient.[facility]In the event this information is protected by the Federal Confidentiality of Alcohol and Drug Abuse Patient Records regulations: The Federal rules restrict any use of the information to criminally investigate or prosecute any alcohol or drug abuse patient.[facility]In the event this information is protected by the Federal Confidentiality of Alcohol and Drug Abuse Patient Records regulations: The Federal rules restrict any use of the information to criminally investigate or prosecute any alcohol or drug abuse patient.[facility]In the event this information is protected by the Federal Confidentiality of Alcohol and Drug Abuse Patient Records regulations: The Federal rules restrict any use of the information to criminally investigate or prosecute any alcohol or drug abuse patient.[facility]In the event this information is protected by the Federal Confidentiality of Alcohol and Drug Abuse Patient Records regulations: The Federal rules restrict any use of the information to criminally investigate or prosecute any alcohol or drug abuse patient.[facility]In the event this information is protected by the Federal Confidentiality of Alcohol and Drug Abuse Patient Records regulations: The Federal rules restrict any use of the information to criminally investigate or prosecute any alcohol or drug abuse patient.[facility]In the event this information is protected by the Federal Confidentiality of Alcohol and Drug Abuse Patient Records regulations: The Federal rules restrict any use of the information to criminally investigate or prosecute any alcohol or drug abuse patient.[facility]In the event this information is protected by the Federal Confidentiality of Alcohol and Drug Abuse Patient Records regulations: The Federal rules restrict any use of the information to criminally investigate or prosecute any alcohol or drug abuse patient.[facility]In the event this information is protected by the Federal Confidentiality of Alcohol and Drug Abuse Patient Records regulations: The Federal rules restrict any use of the information to criminally investigate or prosecute any alcohol or drug abuse patient.[facility]In the event this information is protected by the Federal Confidentiality of Alcohol and Drug Abuse Patient Records regulations: The Federal rules restrict any use of the information to criminally investigate or prosecute any alcohol or drug abuse patient.[facility]In the event this information is protected by the Federal Confidentiality of Alcohol and Drug Abuse Patient Records regulations: The Federal rules restrict any use of the information to criminally investigate or prosecute any alcohol or drug abuse patient.[facility]In the event this information is protected by the Federal Confidentiality of Alcohol and Drug Abuse Patient Records regulations: The Federal rules restrict any use of the information to criminally investigate or prosecute any alcohol or drug abuse patient.[facility]In the event this information is protected by the Federal Confidentiality of Alcohol and Drug Abuse Patient Records regulations: The Federal rules restrict any use of the information to criminally investigate or prosecute any alcohol or drug abuse patient.[facility]In the event this information is protected by the Federal Confidentiality of Alcohol and Drug Abuse Patient Records regulations: The Federal rules restrict any use of the information to criminally investigate or prosecute any alcohol or drug abuse patient.[facility]In the event this information is protected by the Federal Confidentiality of Alcohol and Drug Abuse Patient Records regulations: The Federal rules restrict any use of the information to criminally investigate or prosecute any alcohol or drug abuse patient.[facility]In the event this information is protected by the Federal Confidentiality of Alcohol and Drug Abuse Patient Records regulations: The Federal rules restrict any use of the information to criminally investigate or prosecute any alcohol or drug abuse patient.[facility] HospitalIn the event this information is protected by the Federal Confidentiality of Alcohol and Drug Abuse Patient Records regulations: The Federal rules restrict any use of the information to criminally investigate or prosecute any alcohol or drug abuse patient.[facility]In the event this information is protected by the Federal Confidentiality of Alcohol and Drug Abuse Patient Records regulations: The Federal rules restrict any use of the information to criminally investigate or prosecute any alcohol or drug abuse patient.[facility] HospitalIn the event this information is protected by the Federal Confidentiality of Alcohol and Drug Abuse Patient Records regulations: The Federal rules restrict any use of the information to criminally investigate or prosecute any alcohol or drug abuse patient.[facility] HospitalIn the event this information is protected by the Federal Confidentiality of Alcohol and Drug Abuse Patient Records regulations: The Federal rules restrict any use of the information to criminally investigate or prosecute any alcohol or drug abuse patient.[facility] HospitalIn the event this information is protected by the Federal Confidentiality of Alcohol and Drug Abuse Patient Records regulations: The Federal rules restrict any use of the information to criminally investigate or prosecute any alcohol or drug abuse patient.[facility] HospitalIn the event this information is protected by the Federal Confidentiality of Alcohol and Drug Abuse Patient Records regulations: The Federal rules restrict any use of the information to criminally investigate or prosecute any alcohol or drug abuse patient.[facility] HospitalIn the event this information is protected by the Federal Confidentiality of Alcohol and Drug Abuse Patient Records regulations: The Federal rules restrict any use of the information to criminally investigate or prosecute any alcohol or drug abuse patient.[facility] HospitalIn the event this information is protected by the Federal Confidentiality of Alcohol and Drug Abuse Patient Records regulations: The Federal rules restrict any use of the information to criminally investigate or prosecute any alcohol or drug abuse patient.[facility] HospitalIn the event this information is protected by the Federal Confidentiality of Alcohol and Drug Abuse Patient Records regulations: The Federal rules restrict any use of the information to criminally investigate or prosecute any alcohol or drug abuse patient.[facility] HospitalIn the event this information is protected by the Federal Confidentiality of Alcohol and Drug Abuse Patient Records regulations: The Federal rules restrict any use of the information to criminally investigate or prosecute any alcohol or drug abuse patient.[facility] Reason for Visit (unrecogniz ed section and content) Reason Comments Established Patient discuss FMLA for jim vinny and sinus/allergies Reason Comments New Neur Headache Consult for Migraine s Specialty Diagnoses / Procedures Referred By Contmarina t Referred To Contact Diagnoses Migraine without status migrainosus, not intractable, unspecified migraine type Procedures CONSULT TO HEADACHE CLINIC OFFICE/OUTPATIENT [facility] 60-74 MINUTES Luis Antonio Lovell, KARMEN.[facility] [address] [place] [address] Referral ID Status Reason Start Date Expiration Date V isits Requested Visits Authorized [id number] Closed PCP Requested Referral 05/03/2021 05/03/2022 1 1 Reason Comments Orders Reason Comments New Patient Evaluation Specialty Diagnoses / Procedures Referred By Contmarina t Referred To Contact MR IMAGING Diagnoses Family history of ischemic heart disease and other diseases of the circulatory system Chronic mixed headache syndrome Procedures MRI BRAIN WO/W IVCON MRI BRAIN BRAIN STEM W/O W/CONTRAST MATERIAL Timmy Li Jr., MD [address] [id number] Mr Imaging Referral ID Status Reason Start Date Expiration Date V isits Requested Visits Authorized [id number] Closed Auto-Generate d Referral 07/22/2021 09/24/2021 1 1 Reason Onset Date Comments Refill Request 09/09/2021 Reason Onset Date Comments Refill Request 09/08/2021 Reason Comments Anxiety Depression Follow Up Reason Comments Nasal Congestion drainage, sore throa t and cough x 1 day Reason Comments Eye Problem Reason Comments Eye Problem left eye red, burnin g and matting x 1 day Reason Comments Swollen Glands left side of neck x 2 days, seen on sat. Reason Comments Refill Request Reason Comments Follow Up Anxiety Depression Specialty Diagnoses / Procedures Referred By Sally t Referred To Contact Diagnoses Sleep apnea, unspecified type Procedures CONSULT TO PSYCHIATRY OFFICE/OUTPATIENT [facility] 60-[address] Byrnes MD [address] [facility] [place] [address] Referral ID Status Reason Start Date Expiration Date Visits Requested Visits Authorized [id number] Pending Review PCP Requested Referral 07/15/2021 07/15/2022 1 1 Reason Comments Patient Update Reason Comments Follow Up Reason Comments Results Reason Comments Follow Up labs Reason Comments Return To Work Letter Reason Comments Nasal Congestion Pt reported cough, n chelsi congestion, x3 days. 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 Start Date End Date Rd Byrnes MD [address] [place] [address] PCP - General Internal Medicine 03/31/13 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 Start Date End Date Rd Byrnes MD [address] [place] [address] PCP - General Internal Medicine 03/31/13 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 Start Date End Date Rd yBrnes MD [address] [place] [address] PCP - General Internal Medicine 03/31/13 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 Start Date End Date Rd Byrnes MD [address] [place] [address] PCP - General Internal Medicine 03/31/13 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 Start Date End Date Rd Byrnes MD [address] [place] [address] PCP - General Internal Medicine 03/31/13 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 Start Date End Date Rd Byrnes MD [address] [place] [address] PCP - General Internal Medicine 03/31/13 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 Start Date End Date Rd Byrnes MD [address] [place] [address] PCP - General Internal Medicine 03/31/13 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 Start Date End Date Rd Byrnes MD [address] [place], [place] [id number] PCP - General Internal Medicine 03/31/13 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 Start Date End Date Rd Byrnes MD [address] [place], [place] [address] [phone] PCP - General Internal Medicine 03/31/13 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 Start Date End Date Rd Byrnes MD [address] [place], [place] [id number] PCP - General Internal Medicine 03/31/13 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 Start Date End Date Rd Byrnes MD [address] [place] [address] PCP - General Internal Medicine 03/31/13 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 Start Date End Date dR Byrnes MD [address] [place], [place] [address] [phone] PCP - General Internal Medicine 03/31/13 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 Start Date End Date Rd Byrnes MD [address] [place], [place] [id number] PCP - General Internal Medicine 03/31/13 Care Team (unrecognized sect ion and content) Care Team Personnel Name: RD BYRNES MD Member Role: Primary Care Physician Address: Address: [address] [place] [address]- Name: ALIYA Mart Position: ED RN Member Role: ED RN Name: ZOILA SANTA DO Position: ED Physician Member Role: ED Physician Address: Address: [address] [place] [id number] FOR RECORDS PERTAINING TO PATIENTS WHO ARE OR HAVE BEEN ENROLLED IN A CHEMICAL DEPENDENCY/SUBSTANCEABUSE PROGRAM, SOME INFORMATION MAY BE OMITTED. This clinical summary was aggregated from multiple sources. Caution should be exercised in using it in the provision of clinical care. This summary normalizes information from multiple sources, and as a consequence, information in this document may materially change the coding, format and clinical context of patient data. In addition, data may be omitted in some cases. CLINICAL DECISIONS SHOULD BE BASED ON THE PRIMARY CLINICAL RECORDS. [facility] provides no warranty or guarantee of the accuracy or completeness of information in this document.
[2023-03-17 17:12] LABS: Absolute Lymphocyte Count 1.34 X10^3/uL (0.83-4.51); Absolute Neutrophil Count 14.9 X10^3/uL (2.0-7.7); Basophil# 0.03 X10^3/uL; Basophil% 0.2 % (0-1); Eosinophil# 0.01 X10^3/uL; Eosinophils% 0.1 % (0-5); Hematocrit 42.4 % (37-47); Hemoglobin 14.1 g/dL (12.0-15.0); Lymphocyte # 1.34 X10^3/ul (0.83-4.51); Lymphocyte % 7.6 % (19-41); Mean Corp Hgb Conc 33.3 g/dL (32-36); Mean Corpuscular Hgb 28.7 pg (27.0-32.0); Mean Corpuscular Volume 86.4 fL (81-99); Mean Platelet Vol. 9.9 fl (6.2-12.0); Monocyte# 1.09 X10^3/uL; Monocyte% 6.2 % (0-10); NRBC Flagged by Analyzer 0 % (0-5); Neutrophil # 14.94 X10^3/uL (2.7-7.7); Platelet Count 219 K/mm3 (150-450); RBC Distribution Width CV 13.1 % (11.6-14.6); RBC Distribution Width SD 40.9 fl (35.1-43.9); Red Blood Count 4.91 M/mm3 (4.2-5.4); White Blood Count 17.6 K/mm3 (4.4-11.0)
[2023-03-17 17:20] LABS: Internal QC Validated? YES +Cl - CLEAR BKGD; Pregnancy, Serum, hCG Quali. NEGATIVE Negative
[2023-03-17 17:32] LABS: ALB/GLOB Ratio 0.8 RATIO (0.9-2.4); AST(SGOT) 10 U/L (15-37); Alanine Aminotransfer ALT/SGPT 22 U/L (13-56); Albumin, Serum 3.7 g/dL (3.2-5.0); Alkaline Phosphatase 79 U/L (45-117); Anion Gap 5 (5-15); BUN 8 mg/dL (7-18); BUN/Creat Ratio 7.5 RATIO (10-20); Calcium,Total 9.3 mg/dL (8.5-10.1); Chloride 108 mmol/L (98-107); Creatinine, Serum 1.07 mg/dL (0.55-1.02); EST Glomerular Filtration Rate 65 mL/min (>60); Est Glom Filt Rate - Afr Amer 78 mL/min (>60); Estimated Creatinine Clearance 67.59 ml/min; Globulin 4.5 g/dL (2.2-4.2); Glucose 108 mg/dL (74-106); Potassium 3.7 mmol/L (3.5-5.1); Protein, Total 8.2 g/dL (6.4-8.2); Sodium Level 140 mmol/L (136-145)
--- NOTE | 2023-03-17 17:42 | RAD_ITS ---
STUDY: X-RAY CHEST REASON FOR EXAM: Female, 28 years old. covid TECHNIQUE: AP COMPARISON: 12/28/2014. FINDINGS: The lungs are clear and expanded. There is no demonstrated pleural abnormality. Normal size heart. Normal mediastinum and kym. Normal visualized pulmonary arteries. Normal visualized aortic arch and descending thoracic aorta. Normal visualized thoracic spine. Normal visualized ribs, clavicles, and shoulders. There is no demonstrated abnormality of the visualized soft tissue structures of the upper abdomen. RAD/Chest 1 View (Portable) IMPRESSION: Nonacute portable x-ray examination of the chest. Electronically Signed: Naun Ruano MD ([place]) at 18:16 EST ,
[2023-03-17 18:52] LABS: Bacteria 0 SEEN /hpf (None Seen); Mucous, Urine 0 SEEN /hpf (<or=2+); Red Blood Cells-Urine 0 SEEN /hpf (0-5)
[2023-03-17 18:56] LABS: Color, Urine Yellow (Yellow); Glucose, Dipstick Normal (Normal); Ketone-Dipstick Negative (Negative); Leukocyte Esterase-Dipstick 100 /ul (Negative); Nitrite-Dipstick Negative (Negative); Occult Blood-Urine 10 /ul (Negative); Protein-Dipstick Negative (Negative); Urine Bilirubin Dipstick Negative (Negative); Urine Clarity Sl. Cloudy (Clear); Urine Urobilinogen Normal (Normal)
[2023-03-17 19:13] LABS: Squamous Epithelial Cells - UA 0-5 SEEN /hpf (5-10); White Blood Cells 0-5 SEEN /hpf (0-5)
== END 2023-03-17 19:37 | disposition home or self-care (01) ==
PROVIDERS: Emergency Provider Emergency Medicine; Visit Provider Emergency Medicine
DX: U07.1 COVID-19 (principal); E86.0 Dehydration; F17.210 Nicotine dependence, cigarettes, uncomplicated
CPT/HCPCS: 71045; 80053; 81001; 84703; 85025; 96361; 96374; 99282; J7030

== ENCOUNTER 2023-03-26 00:32 | Emergency (ER) | payer MEDICAID, SELFPAY ==
[2023-03-26 00:33] VITALS: BP 142/88; PULSE 88; RESP 18; TEMP 36.9; O2SAT 99
--- OUTSIDE RECORDS SUMMARY | 2023-03-26 01:27 | XMS RPT_ITS | CCD ---
Author Name Unknown Address [address] [place] [address] Organization [facility] Care Team Providers Care Paperboard Boxes Estimator Name Role Phone Merlin Dalton Unavailable Unavailable [...] RD BYRNES MD Primary Care Physician GANTA, DR Primary Care Unavailable TIMMY LI JR Attending [...] Primary Care Unavailable LINDSAY NEVILLE Attending Unavailable [facility] Unavailable LINDSAY NEVILLE Attending Unavailable [facility] Unavailable [facility] Unavailable LINDSAY NEVILLE Attending Unavailable TIMMY LI JR Attending Unavailable [facility] Unavailable Allergies Allergy Classification Reported Allergen(s) Allergy Type Date of Onset Reaction(s) Facility (5 sources) house dust allergenic extract; Translations: [HOUSE DUST] Drug Allergy 07-31-2022 Intolerance [facility] Work Phone: (5 sources) House Dust Mite; Translations: [HOUSE DUST MITE] Drug Allergy 07-31-2022 Intolerance [facility] Work Phone: Medications Current Medications Medication [...] Drug Class(es) Dates Sig (Normalized) Sig (Original) [id number] 200 actuat albuterol 0.09 mg/actuat metered dose [...] (1 source) Patient encounter status; Translations: [Other jail (current) drug therapy] Episodic Other aftercare (1 source) 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 07-07-2022 18:31-0400 Body weight 144.4 kg KESHAWN COLE MD [facility] 07-07-2022 18:31-0400 Diastolic Blood Pressure Non-Invasive 81 1 KESHAWN COLE MD [facility] 07-07-2022 18:31-0400 Heart rate 107 /min KESHAWN COLE MD [facility] 07-07-2022 18:31-0400 Respiratory rate 18 /min KESHAWN COLE MD [facility] 07-07-2022 18:31-0400 Systolic Blood Pressure Non-Invasive 120 1 KESHAWN COLE MD [facility] 04-21-2022 16:00-0500 Body temperature 98.91 [degF] Cipriano Barry APRN.ORGANIC CHEMISTRY PROFESSOR Work Phone: [facility] 04-21-2022 16:00-0500 Body weight 146.88 kg Cipriano Barry APRN.ORGANIC CHEMISTRY PROFESSOR Work Phone: [facility] 04-21-2022 16:00-0500 Diastolic blood pressure 74 mm[Hg] [facility] MIRROR DEPARTMENT SUPERVISOR.ORGANIC CHEMISTRY PROFESSOR Work Phone: [facility] 04-21-2022 16:00-0500 Heart rate 84 /min [facility] MIRROR DEPARTMENT SUPERVISOR.ORGANIC CHEMISTRY PROFESSOR Work Phone: [facility] 04-21-2022 16:00-0500 Respiratory rate 22 /min [facility] MIRROR DEPARTMENT SUPERVISOR.ORGANIC CHEMISTRY PROFESSOR Work Phone: [facility] 04-21-2022 16:00-0500 SaO2% (BldA) [Mass fraction] 97 % [facility] MIRROR DEPARTMENT SUPERVISOR.ORGANIC CHEMISTRY PROFESSOR Work Phone: [facility] 04-21-2022 16:00-0500 Systolic blood pressure 126 mm[Hg] [facility] MIRROR DEPARTMENT SUPERVISOR.ORGANIC CHEMISTRY PROFESSOR Work Phone: [facility] 03-20-2022 19:07-0500 Body temperature 98.6 [degF] ZOILA SANTA DO [facility] 03-20-2022 19:07-0500 Body weight 152 kg ZOILA LEAT [facility] 03-20-2022 19:07-0500 Diastolic Blood Pressure Non-Invasive 73 1 ZOILA LEAT [facility] 03-20-2022 19:07-0500 Heart rate 95 /min ZOILA LEAT [facility] 03-20-2022 19:07-0500 Respiratory rate 16 /min ZOILA LEAT [facility] 03-20-2022 19:07-0500 Systolic Blood Pressure Non-Invasive 106 1 ZOILA LEAT [facility] 01-04-2022 16:16-0400 Body height 156.[address] Byrnes MD Work Phone: [facility] 01-04-2022 16:16-0400 Body temperature 98.01 [degF] Rd Byrnes MD Work Phone: [facility] 01-04-2022 16:16-0400 Body weight 143.[address] Byrnes MD Work Phone: [facility] 01-04-2022 16:16-0400 Diastolic blood pressure 72 mm[Hg] Rd Byrnes MD Work Phone: [facility] 01-04-2022 16:16-0400 Heart rate 90 /min Rd Byrnes MD Work Phone: [facility] 01-04-2022 16:16-0400 Respiratory rate 16 /min Rd Byrnes MD Work Phone: [facility] 01-04-2022 16:16-0400 SaO2% (BldA) [Mass fraction] 94 % Rd Byrnes MD Work Phone: [facility] 01-04-2022 16:16-0400 Systolic blood pressure 120 mm[Hg] Rd Byrnes MD Work Phone: [facility] 09-26-2021 17:26-0400 Body temperature 99 [degF] Candace Athy PA-C Work Phone: [facility] 09-26-2021 17:26-0400 Body weight 151.05 kg Candace Athy PA-C Work Phone: [facility] 09-26-2021 17:26-0400 Diastolic blood pressure 78 mm[Hg] Candace Athy PA-C Work Phone: [facility] 09-26-2021 17:26-0400 Heart rate 98 /min Candace Athy PA-C Work Phone: [facility] 09-26-2021 17:26-0400 Respiratory rate 16 /min Candace Athy PA-C Work Phone: [facility] 09-26-2021 17:26-0400 SaO2% (BldA) [Mass fraction] 96 % Candace Athy PA-C Work Phone: [facility] 09-26-2021 17:26-0400 Systolic blood pressure 126 mm[Hg] Candace Athy PA-C Work Phone: [facility] 09-24-2021 14:08-0400 Body temperature 98.1 [degF] Rosario Denbow PA-C Work Phone: [facility] 09-24-2021 14:08-0400 Body weight 149.23 kg Rosario Denbow PA-C Work Phone: [facility] 09-24-2021 14:08-0400 Diastolic blood pressure 80 mm[Hg] Rosario Denbow PA-C Work Phone: [facility] 09-24-2021 14:08-0400 Heart rate 88 /min Rosario Denbow PA-C Work Phone: [facility] 09-24-2021 14:08-0400 Respiratory rate 16 /min Rosario Denbow PA-C Work Phone: [facility] 09-24-2021 14:08-0400 SaO2% (BldA) [Mass fraction] 97 % Rosario Denbow PA-C Work Phone: [facility] 09-24-2021 14:08-0400 Systolic blood pressure 128 mm[Hg] Rosario Denbow PA-C Work Phone: [facility] 09-20-2021 15:55-0400 Body temperature 97.3 [degF] Malu Diana MIRROR DEPARTMENT SUPERVISOR.ORGANIC CHEMISTRY PROFESSOR Work Phone: [facility] 09-20-2021 15:55-0400 Body weight 149.69 kg Malu Diana MIRROR DEPARTMENT SUPERVISOR.ORGANIC CHEMISTRY PROFESSOR Work Phone: [facility] 09-20-2021 15:55-0400 Diastolic blood pressure 74 mm[Hg] Malu Diana MIRROR DEPARTMENT SUPERVISOR.ORGANIC CHEMISTRY PROFESSOR Work Phone: [facility] 09-20-2021 15:55-0400 Heart rate 100 /min Malu Diana MIRROR DEPARTMENT SUPERVISOR.ORGANIC CHEMISTRY PROFESSOR Work Phone: [facility] 09-20-2021 15:55-0400 Respiratory rate 18 /min Malu Diana MIRROR DEPARTMENT SUPERVISOR.ORGANIC CHEMISTRY PROFESSOR Work Phone: [facility] 09-20-2021 15:55-0400 SaO2% (BldA) [Mass fraction] 97 % Malu Diana MIRROR DEPARTMENT SUPERVISOR.ORGANIC CHEMISTRY PROFESSOR Work Phone: [facility] 09-20-2021 15:55-0400 Systolic blood pressure 118 mm[Hg] Malu Diana MIRROR DEPARTMENT SUPERVISOR.ORGANIC CHEMISTRY PROFESSOR Work Phone: [facility] 07-22-2021 14:09-0400 Body temperature 96.91 [degF] Timmy Li Jr., MD Work Phone: [facility] 07-22-2021 14:09-0400 Body weight 150.59 kg Timmy Li Jr., MD Work Phone: [facility] 07-22-2021 14:09-0400 Diastolic blood pressure 72 mm[Hg] Timmy Li Jr., MD Work Phone: [facility] 07-22-2021 14:09-0400 Heart rate 89 /min Timmy Li Jr., MD Work Phone: [facility] 07-22-2021 14:09-0400 Respiratory rate 18 /min Timmy Li Jr., MD Work Phone: [facility] 07-22-2021 14:09-0400 SaO2% (BldA) [Mass fraction] 97 % Timmy Li Jr., MD Work Phone: [facility] 07-22-2021 14:09-0400 Systolic blood pressure 120 mm[Hg] Timmy Li Jr., MD Work Phone: [facility] 07-15-2021 12:19-0400 Body height 156.[address] Byrnes MD Work Phone: [facility] 07-15-2021 12:19-0400 Body temperature 97.5 [degF] Rd Byrnes MD Work Phone: [facility] 07-15-2021 12:19-0400 Body weight 150.[address] Byrnes MD Work Phone: [facility] 07-15-2021 12:19-0400 Diastolic blood pressure 70 mm[Hg] Rd Byrnes MD Work Phone: [facility] 07-15-2021 12:19-0400 Heart rate 84 /min Rd Byrnes MD Work Phone: [facility] 07-15-2021 12:19-0400 Respiratory rate 14 /min Rd Byrnes MD Work Phone: [facility] 07-15-2021 12:19-0400 SaO2% (BldA) [Mass fraction] 95 % Rd Byrnes MD Work Phone: [facility] 07-15-2021 12:19-0400 Systolic blood pressure 118 mm[Hg] Rd Byrnes MD Work Phone: [facility] 05-13-2021 21:44-0500 Diastolic blood pressure 60 mm[Hg] DR YUDITH ASHER MD [facility] 05-13-2021 21:44-0500 Heart rate 70 /min DR YUDITH ASHER MD [facility] 05-13-2021 21:44-0500 Reason For Taking VItal Signs DR YUDITH ASHER MD [facility] 05-13-2021 21:44-0500 Respiratory rate 16 /min DR YUDITH ASHER MD [facility] 05-13-2021 21:44-0500 Systolic blood pressure 107 mm[Hg] DR YUDITH ASHER MD [facility] 05-13-2021 20:22-0500 Body temperature 98.06 [degF] DR YUDITH ASHER MD [facility] 05-13-2021 20:22-0500 Body weight 136.[address] YUDITH ASHER MD [facility] 05-13-2021 20:22-0500 Diastolic blood pressure 98 mm[Hg] DR YUDITH ASHER MD [facility] 05-13-2021 20:22-0500 Heart rate 74 /min DR YUDITH ASHER MD [facility] 05-13-2021 20:22-0500 Respiratory rate 16 /min DR YUDITH ASHER MD [facility] 05-13-2021 20:22-0500 Systolic blood pressure 137 mm[Hg] DR YUDITH ASHER MD [facility] 03-15-2021 23:12-0500 Body temperature 98.42 [degF] SHAE SIMMONS MD [facility] 03-15-2021 23:12-0500 Diastolic blood pressure 72 mm[Hg] SHAE SIMMONS MD [facility] 03-15-2021 23:12-0500 Heart rate 93 /min SHAE SIMMONS MD [facility] 03-15-2021 23:12-0500 Respiratory rate 20 /min SHAE SIMMONS MD [facility] 03-15-2021 23:12-0500 Systolic blood pressure 144 mm[Hg] SHAE SIMMONS MD [facility] Encounters Encounter Date Encounter Type Care Provider Facility Start: 03-01-2023 End: 03-01-[address] BYRNES Facility:[facility] Start: 02-19-2023 End: 02-19-2023 ambulatory TIMMY LI JR Facility:[facility] Start: 02-18-2023 Refill Timmy torres MD Work Phone: Sleep Procedures Date Procedure Procedure Detail Performing Clinician Start: 09-26-2021 STREP A MOLECULAR (POC) Candace Navarro PA-C Work Phone: Start: 08-11-2021 Mri brain brain stem w/o w/contrast material Timmy Li MD Work Phone: Start: 09-07-2020 Urinalysis MAGED AGUIRRE JAYLA Plan of Treatment Date Care Activity Detail Author Start: 11-06-2023 PAP TESTING PAP TESTING [facility] Start: 01-04-2023 ANNUAL PCP TEAM CHRONIC DISEASE VISIT ANNUAL PCP TEAM CHRONIC DISEASE VISIT [facility] Start: 11-30-2022 End: 01-30-2023 25-hydroxyvitamin D3 [Mass/volume] in Serum or Plasma VITAMIN D 25 HYDROXY Lab Routine Vitamin D deficiency Expected: 11/30/2022, Expires: 01/30/2023 [facility] Work Phone: Immunizations Immunization Date Immunization Notes Care Provider Xiomy gilmore 12-19-2018 influenza virus vaccine, unspecified formulation Lindsay Neville APRN.CNP Work Phone: [facility] 04-03-2016 influenza, injectabl e, quadrivalent, contains preservative Tiffany Anderson PA-C Work Phone: [facility] 02-02-2014 influenza, seasonal, injectable Tiffany Anderson PA-C Work Phone: [facility] Work Phone: 02-20-2011 influenza virus vaccine, unspecified formulation Tiffany Anderson PA-C Work Phone: [facility] 02-20-2011 Meningococcal, MCV4, unspecified conjugate formulation(groups A, C, Y and W-135) Tiffany Anderson PA-C Work Phone: [facility] 02-20-2011 tetanus toxoid, redu jyoti diphtheria toxoid, and acellular pertussis vaccine, adsorbed Tiffany Anderson PA-C Work Phone: [facility] 05-03-2007 human papilloma viru s vaccine, quadrivalent Tiffany Anderson PA-C Work Phone: [facility] Work Phone: 12-18-2006 human papilloma viru s vaccine, quadrivalent Tiffany Anderson PA-C Work Phone: [facility] Work Phone: 10-17-2006 human papilloma viru s vaccine, quadrivalent Tiffany Anderson PA-C Work Phone: [facility] Work Phone: 08-30-2000 diphtheria, tetanus toxoids and acellular pertussis vaccine Tiffany Anderson PA-C Work Phone: [facility] Work Phone: 08-30-2000 measles, mumps and rubella virus vaccine Tiffany Anderson PA-C Work Phone: [facility] Work Phone: 08-30-2000 poliovirus vaccine, inactivated Tiffany Anderson PA-C Work Phone: [facility] Work Phone: 01-01-1998 diphtheria, tetanus toxoids and acellular pertussis vaccine Tiffany Anderson PA-C Work Phone: [facility] Work Phone: 01-16-1997 diphtheria, tetanus toxoids and acellular pertussis vaccine Tiffany Anderson PA-C Work Phone: [facility] Work Phone: 01-16-1997 haemophilus influenz ae type b vaccine, HbOC conjugate Tiffany Anderson PA-C Work Phone: [facility] Work Phone: 01-16-1997 poliovirus vaccine, inactivated Tiffany Anderson PA-C Work Phone: [facility] Work Phone: 04-17-1996 diphtheria, tetanus toxoids and acellular pertussis vaccine Tiffany Anderson PA-C Work Phone: [facility] Work Phone: 04-17-1996 haemophilus influenz ae type b vaccine, HbOC conjugate Tiffany Anderson PA-C Work Phone: [facility] Work Phone: 04-17-1996 hepatitis B vaccine, pediatric or pediatric/adolescent dosage Tiffany Anderson PA-C Work Phone: [facility] Work Phone: 04-17-1996 measles, mumps and rubella virus vaccine Tiffany Anderson PA-C Work Phone: [facility] Work Phone: 04-17-1996 poliovirus vaccine, inactivated Tiffany Anderson PA-C Work Phone: [facility] Work Phone: 1995 diphtheria, tetanus toxoids and acellular pertussis vaccine Tiffany Anderson PA-C Work Phone: [facility] Work Phone: 1995 haemophilus influenz ae type b vaccine, HbOC conjugate Tiffany Anderson PA-C Work Phone: [facility] Work Phone: 1995 hepatitis B vaccine, pediatric or pediatric/adolescent dosage Tiffany Anderson PA-C Work Phone: [facility] Work Phone: 1995 poliovirus vaccine, inactivated Tiffany Anderson PA-C Work Phone: [facility] Work Phone: 1995 hepatitis B vaccine, pediatric or pediatric/adolescent dosage Tiffany Anderson PA-C Work Phone: [facility] Work Phone: Payers Date Payer Category Payer Unknown [id number] 2017 Medicaid [employer] [facility] MEDICA[facility] [id number] 2017-Present [phone] [address] [place] [address] Medicaid [id number] 2017 Medicaid [id number] 2017 Unknown [id number] 1995 Unknown [id number] 1995 Unknown [id number] 1995 Unknown [id number] Self-pay Unknown Social History Date Type Detail Facility Tobacco Nicotine Use: Va ping Product in Last 90 Days. [facility] Sex Assigned At [facility] Start: 11-14-2016 End: 01-04-2022 Tobacco smoking status NHIS Ex-smoker [facility] History of tobacco use Cigarette Smoker [facility] Start: 11-14-2016 End: 07-31-2022 Cigarettes smoked current (pack per day) - Reported 0.5 [facility] Start: 11-14-2016 End: 01-04-2022 Tobacco use and exposure Smokeless tobacco non-user [facility] Start: 12-16-2020 End: 11-30-2022 Alcohol intake Current drinker of alcohol (finding) [facility] Start: 06-16-2021 History SDOH Alcohol Frequency 1 [facility] Start: 06-16-2021 History SDOH Alcohol Std Drinks 98 [facility] Start: 05-28-2014 History SDOH Alcohol Comment occasionally [facility] Start: 06-16-2021 History SDOH Social Connections Phone 5 [facility] Start: 06-16-2021 History SDOH Social Connections Get Together 4 [facility] Start: 06-16-2021 History SDOH Social Connections Membership 2 [facility] Start: 06-16-2021 History SDOH Social Connections Living 8 [facility] Start: 06-16-2021 History SDOH Physical Activity DPW 3 [facility] Start: 02-24-2020 Education 17 [facility] Start: 11-14-2016 End: 01-04-2022 Tobacco Comment quit 5 months ago [facility] Start: 1995 Sex Assigned At Female [facility] Start: 07-05-2021 End: 01-04-2022 Exposure to SARS-CoV-2 (event) Not sure [facility] Work Phone: History of tobacco use Current smoker [facility] Start: 06-16-2021 End: 07-31-2022 Social connection and isolation panel [facility] Do you belong to any clubs or organizations such as jewish groups, unions, fraternal or athletic groups, or school groups? No [facility] Are you now , , , , never or living with a partner? Living with partner [facility] How often to you hav e a drink containing alcohol? Never [facility] Start: 02-17-2021 How many standard drinks containing alcohol do you have on a typical day? Patient refused [facility] Do you feel stress - tense, restless, nervous, or anxious, or unable to sleep at night because your mind is troubled all the time - these days [OSQ] Very much [facility] (I/We) worried sheri er (my/our) food would run out before (I/we) got money to buy more. Never true [facility] Start: 11-02-2018 Gender identity Identifies as female gender (finding) [facility] Functional Status Date Assessment Result Facility 07-07-2022 Functional Status ID band on, Call device within reach, Bed in low position, Wheels locked [facility] 03-20-2022 Functional Status Standard Safet y ID band on, Call device within reach, Bed in low position, Wheels locked, Upper/Half-Length side-rails up, Bedside Cart Locked, Safety level maintained [facility] Mental Status Date Assessment Result Facility 07-07-2022 Mental Status Orientation Oriented x 4 [facility] 03-20-2022 Mental Status Orientation Oriented x 4 [facility] Clinical Notes 09-18-2012 to 03-01-2023 Telephone Encounter - Bree Granados OCCA - 02/19/2023 3:09 PM ESTTelephone Encounter - Timmy Li Jr., MD - 02/19/2023 2:00 PM Lindsay Franco APRN.CNP - 11/30/2022 11:27 AM EDT Note Date & Type Note Facility 03-01-2023 Note HNO ID: [id number] Author: Lindsay Neville APRN.SWAPNA Service: ? Author [...] visit. Either the patient or their legal international account representative has been informed of the risks [...] D supplementation again due to deficiency. Continue Capron 3 fatty acid supplement. Complete Vitamin D [...] once daily. 1 (more content not included)... [facility] 02-19-2023 Note HNO ID: [id number] Author: Timmy Li Jr., MD Service: ? Author Type: Physician Type: Progress Notes Filed: 02/19/2023 5:39 PM Note Text: ESTABLISHED PATIENT VISIT (Virtual Visit with Video) For this virtual visit, the patient has been identified by name and (MRN and photo identification as well if available). Those taking part in visit: Patient and physician via [employer]. Consent for this visit received from patient. I have communicated my name and active licensure. The patient's identity and physical location ([place]) were verified at the time of this [...] she will take SD card to DME ([facility]) and will update us once [...] leg swelling o (more content not included)... [facility] 02-19-2023 Miscellaneous Notes Patient scheduled for [...] she will take SD card to DME ([facility]) and will update us once [...] Timmy Li MD documented in this encounter [facility] 02-03-2023 Note HNO ID: [id number] Author: Lidia Goodman APRN.ORGANIC CHEMISTRY PROFESSOR Service: ? Author Type: Nurse Practitioner Type: [...] Nicotine Devices: Refillable (more content not included)... [facility] 11-30-2022 Note HNO ID: [id number] Author: Lindsay Neville APRN.ORGANIC CHEMISTRY PROFESSOR Service: ? Author Type: Nurse Practitioner Type: [...] D supplementation again due to deficiency. Continue Capron 3 fatty acid supplement. Complete Vitamin D [...] visit. Either the patient or their legal international account representative has been informed of the risks [...] overwhelming episodes of anxiety or panic. Restart Capron 3 fatty acid supplement. Reminded to complete Vitamin D lab work. Follow up in 3 months. Today Janell shares that she is doing okay. A lot has happened since that last time I saw you'. She has changed jobs. 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 She recently got custody of all 3 [...] the maria g (more content not included)... [facility] 11-30-2022 History of Presen t illness [...] D supplementation again due to deficiency. Continue Capron 3 fatty acid supplement. Complete Vitamin D [...] visit. Either the patient or their legal international account representative has been informed of the risks [...] overwhelming episodes of anxiety or panic. Restart Capron 3 fatty acid supplement. Reminded to complete Vitamin D lab work. Follow up in 3 months. Today Janell shares that she is doing okay. A lot has happened since that last time I saw you'. She has changed jobs. 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 She recently got custody of all 3 [...] which included preparing to see the patient, [id number]-ci-[id number] patient care, completing clinical documentation, and counseling and educating the patient/family/caregiver, ordering medications/labs. Lindsay Neville APRN.CNP November 30, 2022 11:27 AM This note was partially generated using [employer] voice recognition system. Note was reviewed for accuracy. There may be minor misspellings or grammar miscues with [employer] voice recognition. documented in this encounter [facility] 09-21-2022 Miscellaneous Notes Patient has been [...] Hetal Maravilla RN documented in this encounter [facility] 08-25-2022 Note HNO ID: [id number] Author: CELESTE Howell Service: ? Author Type: Physician Insurance Actuary Type: Progress Notes Filed: 08/25/2022 12:44 PM Note Text: This note was created using [employer]. Subjective Janell Thornton is a 27 year [...] erythematous and b (more content not included)... [facility] 08-03-2022 Note HNO ID: [id number] Author: RT Cathy(R) Service: ? Author Type: Outbound Supervisor Type: Progress Notes Filed: 08/03/2022 6:36 PM [...] RT Cathy(R) August 03, 2022 6:27 PM [facility] 08-03-2022 Note HNO ID: [id number] Author: Meagan Collins APRN.ORGANIC CHEMISTRY PROFESSOR Service: ? Author Type: Nurse Practitioner Type: [...] Use: current everyday user Substances: Nicotine Devices: [employer] Substance Use Topics Alcohol use: Yes [...] swelling, oropharyngeal e (more content not included)... [facility] 07-31-2022 Note HNO ID: [id number] Author: Lindsay Neville APRN.ORGANIC CHEMISTRY PROFESSOR Service: ? Author Type: Nurse Practitioner Type: Progress Notes Filed: 07/31/2022 2:49 PM Note Text: Patient did not log in for her virtual visit with the provider today. [facility] 07-31-2022 History of Presen t illness Narrative Patient did not log in for her virtual visit with the provider today. documented in this encounter [facility] 07-17-2022 Miscellaneous Notes Last appointment: 05/01/22 Next appointment: 07/31/22 documented in this encounter [facility] 07-07-2022 Hospital Discharg e instructions Patient [...] in 1/2 cup of warm water An fwuz-psa-ofvopqa anesthetic gargle Use medicine for more relief Cfwd-wyw-ghrnrgg medicine can reduce sore throat symptoms. Ask [...] swollen glands in the neck or jaw [id number] [employer]. [address] [place] [address]. All rights reserved. This information is not [...] extreme sleepiness or breathing problems, call 911. [phone] [employer]. [address] [place] [address]. All rights reserved. This information is not intended as a substitute for professional medical care. Always follow your healthcare professional's instructions. Follow Up Care 07/07/2022 18:28:38 With:RD BYRNES MD Address: [address] [place] [address]- When:2-4 days [facility] 07-07-2022 Note Discharge Instructions Thank you for allowing [facility] to assist you with your healthcare needs. [...] MD When Within 2-4 days Where: [address] [place] [address]- Allergies NKA Medications Please ask your [...] in 1/2 cup of warm water An dwzg-ylk-ekzuxsi anesthetic gargle Use medicine for more relief Ajah-jmg-hydfrlm medicine can reduce sore throat symptoms. Ask [...] glands in the neck or jaw [employer]. [address] [place] [address]. All rights reserved. This information is not [...] sleepiness or breathing problems, call 911. [employer]. [address] [place] [address]. All rights reserved. This information is not intended as a substitute for professional medical care. Always follow your healthcare professional's instructions. Additional Information VACCINATE! IT SAVES LIVES! Members of the community who have not yet received the COVID-19 vaccine and would like to receive it can visit one of [facility] vaccine clinics. There are many vaccine clinic locations within the [facility]. For locations and available times, please visit [email or web address] gov/. It is important to note that some COVID mobile vaccine clinics are held outdoors and may be canceled in rainy or stormy conditions. To learn more about pediatric vaccinations (ages 5-11), we invite you to visit the [facility] webpage. https://www.[facility].org/p ages/5559-Umxvm-Akfixtblgxq-Freq ptkwfe-Dqvsf-Fxymwozie.html To learn more about the COVID-19 vaccine, we invite you to visit the CDC website for a list of frequently asked questions. https://www.cdc.gov/coronavirus/ 2019-ncov/vaccines/faq.html [facility] [employer] Patient Portal Access Instructions: Stay connected with your healthcare team and access your personal medical information anytime with the [facility] Patient Portal. If you would like a full copy of your medical records please contact the [facility] Medical Records Department Sunday through Sunday between 8a.m. and 4:30p.m. Please follow the directions below to access the portal: 1.Access the email account you provided upon registration to the [facility].2.Look for an invitation email from [facility].3.Open the email and access the invitation link: Accept Invitation to [facility].Fill in the required bess to create your account. Sign into [email or web address] with your username and password that you [...] you will allow to register on the [facility] Patient Portal for access to your information. You can also access the [facility] Patient Portal on the Appwiz. Simply click on Health Records under Health [...] Call your local pharmacy or go to http://bit.Zing Systems/[email or web address] to find one close to you.3.Make use of household items: Use cat litter or old coffee grounds to dispose medications if other options are not available. Mix your drugs with these household products, seal them in an airtight container and throw it into the garbage. Call [facility]: [phone] to be sure your drugs can be [...] aware that I should contact my doctor. Patient/Bow Maker Production Signature: Date/Time: Relationship to Patient: Witness Name/Signature: Date/Time: [facility] 05-23-2022 Note HNO ID: [id number] Author: Timmy Li Jr., MD Service: ? Author Type: Physician Type: Progress Notes Filed: 05/23/2022 12:50 PM Note Text: ESTABLISHED PATIENT VISIT (Virtual Visit with Video) For this virtual visit, the patient has been identified by name and (MRN and photo identification as well if available). Those taking part in visit: Patient and physician via [employer]. Consent for this visit received from patient. I have communicated my name and active licensure. The patient's identity and physical location were verified at the time of this visit. Either the patient or their legal international account representative has been informed of the risks [...] Note her machine does not work with [employer]ob[employer] and will need to take card to [...] Feeling bad abou (more content not included)... [facility] 05-23-2022 History of Presen t illness Narrative ESTABLISHED PATIENT VISIT (Virtual Visit with Video) For this virtual visit, the patient has been identified by name and (MRN and photo identification as well if available). Those taking part in visit: Patient and physician via [employer]. Consent for this visit received from patient. I have communicated my name and active licensure. The patient's identity and physical location were verified at the time of this visit. Either the patient or their legal international account representative has been informed of the risks [...] Use: current everyday user Substances: Nicotine Devices: DealitLive.com tank Substance Use Topics Alcohol use: Yes [...] she will take SD card to DME ([facility]) and will update us once [...] which included preparing to see the patient, twae-mn-grrr patient care, completing clinical documentation, obtaining and/or reviewing separately obtained history, performing a medically appropriate examination, counseling and educating the patient/family/caregiver, ordering medications, tests, or procedures, and communicating results to the patient/family/caregiver. documented in this encounter [facility] 05-22-2022 Miscellaneous Notes Called and let the patient know. Brenda Tovar MA AGATA Gutierrez ordered, thank you Please see pended medication. Pharmacy linked. Last ordered 02/16/2022. Brenda Tovar MA documented in this encounter [facility] 05-16-2022 Note HNO ID: [id number] Author: Lindsay Neville APRN.SWAPNA Service: ? Author Type: Nurse Practitioner Type: Progress Notes Filed: 05/16/2022 9:04 AM Note Text: Lab work reviewed for vitamin D deficiency. Vitamin D supplement sent for the patient to start. [facility] 05-16-2022 History of Presen t illness Narrative Lab work reviewed for vitamin D deficiency. Vitamin D supplement sent for the patient to start. documented in this encounter [facility] 05-10-2022 Miscellaneous Notes Spoke with [facility] and requested 90 day pap download. Waiting for report to be faxed Felicitas Morton LPN documented in this encounter [facility] 05-01-2022 Note HNO ID: [id number] Author: Lindsay Neville APRN.ORGANIC CHEMISTRY PROFESSOR Service: ? Author Type: Nurse Practitioner Type: [...] overwhelming episodes of anxiety or panic. Restart Capron 3 fatty acid supplement. Reminded to complete [...] her mood concerns related to SAD. Incorporate Capron 3 fatty acid supplement to help with [...] with her sister's children. She only took Capron 3 fatty acids for 2 days, but [...] which included preparing to see the patient, hqxl-hq-lqtb patient care, completing clinical documentation, and counseling and educating the patient/family/caregiver, ordering medications/labs. Lindsay Neville, KARMEN.ORGANIC CHEMISTRY PROFESSOR May 01, 2022 2:11 PM This note was partially generated using Swarmforce voice recognition system. Note was reviewed for accuracy. There may be minor misspellings or grammar miscues with Swarmforce vo (more content not included)... [facility] 05-01-2022 History of Presen t illness [...] overwhelming episodes of anxiety or panic. Restart Capron 3 fatty acid supplement. Reminded to complete [...] her mood concerns related to SAD. Incorporate Capron 3 fatty acid supplement to help with [...] with her sister's children. She only took Capron 3 fatty acids for 2 days, but [...] which included preparing to see the patient, sffw-zk-kelb patient care, completing clinical documentation, and counseling and educating the patient/family/caregiver, ordering medications/labs. Lindsay Neville APRN.CNP May 01, 2022 2:11 PM This note was partially generated using Swarmforce voice recognition system. Note was reviewed for accuracy. There may be minor misspellings or grammar miscues with Swarmforce voice recognition. documented in this encounter [facility] 04-22-2022 Miscellaneous Notes Patient notified of results, verbalized understanding of instructions given. Fernanda Hernandez MA Negative for flu and covid please notify thank you documented in this encounter [facility] 04-21-2022 Note HNO ID: [id number] Author: Cipriano Barry APRN.CNP Service: ? Author Type: Nurse Practitioner Type: Progress Notes Filed: 04/21/2022 4:24 PM Note Text: Subjective HPI Nontoxic-appearing female presents urgent care chief complaint URI-like symptoms. Duration of symptoms 3 days. Associated symptoms sore throat, nasal congestion, nasal discharge and nonproductive cough. Patient denies the use of any isxr-dmk-mknffwz medications or home remedies for symptom management. [...] Use: current everyday user Substances: Nicotine Devices: RefPageScienceble tank Substance Use Topics Alcohol use: Yes [...] Negative for myalgias. (more content not included)... [facility] 04-21-2022 Instructions Cipriano Barry APRN.[facility] - 04/21/2022 4:10 PM EST How [...] concerning to you. documented in this encounter [facility] 04-21-2022 History of Presen t illness Narrative Subjective HPI Nontoxic-appearing female presents urgent care chief complaint URI-like symptoms. Duration of symptoms 3 days. Associated symptoms sore throat, nasal congestion, nasal discharge and nonproductive cough. Patient denies the use of any hapd-cac-ebqsdar medications or home remedies for symptom management. [...] of care. This note was generated using Swarmforce software. It may contain errors in wording, punctuation, or spelling. Cipriano Barry APRN.SWAPNA documented in this encounter [facility] 03-28-2022 Note HNO ID: [id number] Author: Lindsay Neville APRN.SWAPNA Service: ? Author [...] her mood concerns related to SAD. Incorporate Capron 3 fatty acid supplement to help with [...] since 2020.She is also going to incorporate Capron 3 fatty acids as she was told [...] sister's children as her sister is in usp. Their father has custody but she feels [...] Ideations: No suicida (more content not included)... [facility] 03-28-2022 History of Presen t illness Narrative Images from the original note were not included. PSYC FOLLOW UP - PSYCHIATRIC PROGRESS NOTE DIAGNOSIS: MDD, recurrent, moderate - seasonal affective presentation Generalized Anxiety Disorder OCD GAF: -60-51 Moderate symptoms or moderate difficulty in social, occupational or school functioning. TREATMENT PLAN: Start light therapy to help with her mood concerns related to SAD. Incorporate Capron 3 fatty acid supplement to help with [...] since 2020.She is also going to incorporate Capron 3 fatty acids as she was told [...] sister's children as her sister is in usp. Their father has custody but she feels [...] which included preparing to see the patient, ozbq-wq-mrfy patient care, completing clinical documentation, and counseling and educating the patient/family/caregiver, ordering medications/labs. Lindsay Neville APRN.CNP March 28, 2022 9:03 AM This note was partially generated using Swarmforce voice recognition system. Note was reviewed for accuracy. There may be minor misspellings or grammar miscues with Dragon voice recognition. documented in this encounter [facility] 03-20-2022 Hospital Discharg e instructions Patient [...] For more information https://smokefree.gov/talk-to-an -expert National [employer] [place] Smoking Quitline: 226-03H-XOPL (275-187-4875) 8257-6086 The [employer]. [address] [place] [address], [place] [address]. All rights reserved. This information is not [...] the first few days. You may use aiao-aek-ocfyiwj medicine, such as acetaminophen or ibuprofen, to [...] F (38 C) or as advised Seizure 4563-2285 [employer]. [address] [place] [address]. All rights reserved. This information is not intended as a substitute for professional medical care. Always follow your healthcare professional's instructions. [facility] 03/20/2022 19:06:15 With:RD YBRNES MD Address: [address] [place] [id number]- When:2-4 days [facility] 03-20-2022 Emergency department Discharge summary Discharge Instructions Thank you for allowing [facility] to assist you with your healthcare needs. [...] MD When Within 2-4 days Where: [address] [place] [address]- Allergies NKA Medications Please ask your primary [...] For more information https://smokefree.gov/talk-to-an -expert National Cancer [place] Smoking Quitline: 801-28P-RMWW (420-366-2804) 8446-7207 [employer]. [address] [place], [place] [address]. All rights reserved. This information is not [...] the first few days. You may use qsgf-rlo-wsepbok medicine, such as acetaminophen or ibuprofen, to [...] F (38 C) or as advised Seizure 3189-2001 [employer]. [address] [place], [place] [address]. All rights reserved. This information is not intended as a substitute for professional medical care. Always follow your healthcare professional's instructions. Additional Information VACCINATE! IT SAVES LIVES! Members of the community who have not yet received the COVID-19 vaccine and would like to receive it can visit one of [facility] vaccine clinics. There are many vaccine clinic locations within the [facility]. For locations and available times, please visit www.[email or web address]. org. It is important to note that some COVID mobile vaccine clinics are held outdoors and may be canceled in rainy or stormy conditions. To learn more about pediatric vaccinations (ages 5-11), we invite you to visit the [facility] webpage. https://www.[facility].org/p ages/8486-Twjuv-Cmdrtgdgpar-Freq nnrgze-Ipjex-Wwqetrprt.html To learn more about the COVID-19 vaccine, we invite you to visit the [facility] website for a list of frequently asked questions. [email or web address]://[email or web address]/[email or web address] auv-dqr-Izndcrrb/ktgwg-Fiiiycf-I requently_Asked-Questions.pdf [facility] [employer] Patient Portal Access Instructions: Stay connected with your healthcare team and access your personal medical information anytime with the [facility] Patient Portal. If you would like a full copy of your medical records please contact the [facility] Medical Records Department Sunday through Sunday between 8a.m. and 4:30p.m. Please follow the directions below to access the portal: 1.Access the email account you provided upon registration to the [facility].2.Look for an invitation email from [facility].3.Open the email and access the invitation link: Accept Invitation to [email or web address].Fill in the required bess to create your account. Sign into [email or web address] with your username and password that you [...] you will allow to register on the [facility] Patient Portal for access to your information. You can also access the [facility] Patient Portal on the [employer] kerry. Simply click on Health Records under Health Data and then click on the 365looks logo. HOW TO SAFELY DISPOSE OF PRESCRIPTION [...] Call your local pharmacy or go to http://[employer]Zing Systems/5I9Jo1n to find one close to you.3.Make use of household items: Use cat litter or old coffee grounds to dispose medications if other options are not available. Mix your drugs with these household products, seal them in an airtight container and throw it into the garbage. Call [facility]: [phone] to be sure your drugs can be [...] aware that I should contact my doctor. Patient/Bow Maker Production Signature: Date/Time: Relationship to Patient: Witness Name/Signature: Date/Time: [facility] 03-16-2022 Miscellaneous Notes Offered a sooner appointment to address these concerns. documented in this encounter [facility] 02-15-2022 Miscellaneous Notes Called the patient and scheduled an appointment. The refill will be addressed at the appointment. documented in this encounter [facility] 01-30-2022 History of Presen t illness [...] to take her Valium. 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 She was able to get her Cpap [...] which included preparing to see the patient, gjdz-vq-dowq patient care, completing clinical documentation, and counseling and educating the patient/family/caregiver, ordering medications/labs. Lindsay Neville APRN.ORGANIC CHEMISTRY PROFESSOR January 30, 2022 2:01 PM This note was partially generated using Swarmforce voice recognition system. Note was reviewed for accuracy. There may be minor misspellings or grammar miscues with Swarmforce voice recognition. documented in this encounter [facility] 01-20-2022 Miscellaneous Notes Patient aware of [...] needs to schedule an appt? Patient uses [facility] for her pharmacy. Please advise Physician: Dr. Li Call from pharmacy requesting refill. Please E-Scribe Last OV: 07/22/[address] Li Future OV: none schedule with Dr. Li Requested Prescriptions Pending Prescriptions Disp Refills topiramate (TOPAMAX) 100 mg tablet [Pharmacy Med Name: TOPIRAMATE 100 MG TABLET] 30 tablet 2 Sig: TAKE 1 TABLET BY MOUTH EVERYDAY AT BEDTIME Pharmacy Name: [facility] Pharmacy Phone #: [phone] Kayce Lugo 07/22/21 Assessment and Plan: ASSESSMENT/PLAN: [...] Timmy Li MD documented in this encounter [facility] 01-09-2022 Miscellaneous Notes Letter faxed RTW today. Patient called requesting a return to work letter to fax# [phone] Harika Ellis. documented in this encounter [facility] 01-04-2022 History of Presen t illness [...] Use: current everyday user Substances: Nicotine Devices: RefPageScienceble tank Substance Use Topics Alcohol use: Yes [...] Rd Byrnes MD documented in this encounter [facility] 12-26-2021 History of Presen t illness [...] with a therapist in January at the [facility]. She has not started the Metformin, [...] which included preparing to see the patient, zuzs-cw-lxno patient care, completing clinical documentation, and counseling and educating the patient/family/caregiver, ordering medications/labs. Lindsay Neville APRN.CNP December 26, 2021 2:05 PM This note was partially generated using Swarmforce voice recognition system. Note was reviewed for accuracy. There may be minor misspellings or grammar miscues with Swarmforce voice recognition. documented in this encounter [facility] 12-09-2021 Miscellaneous Notes Mychart message sent. ----- Message from Rd Byrnes MD sent at 12/09/2021 7:07 AM EDT ----- Please set patient to see me to discuss this issues with the patient documented in this encounter [facility] 11-25-2021 Instructions Lindsay Neville APRN.CNP - [...] - Call the National Suicide Hotline at 0-737-IEYDLNJ ( ) or 6-305-014-TALK (1088) - Text 4HOPE to 088779 Medication Update: Week 1 -sertraline (Zoloft) 100 [...] may call the department appointment line at [phone] to schedule your appointment. -- Please call my nurse Yecenia at [phone] or send me a message in Scuttledog with any questions or concerns between appointments. documented in this encounter [facility] 11-25-2021 History of Presen t illness [...] be trapped at work. 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 We discussed [...] which included preparing to see the patient, ikrq-wy-bwjn patient care, completing clinical documentation, and counseling and educating the patient/family/caregiver, ordering medications/labs. Lindsay Neville APRN.SWAPNA November 25, 2021 12:14 PM This note was partially generated using Swarmforce voice recognition system. Note was reviewed for accuracy. There may be minor misspellings or grammar miscues with Swarmforce voice recognition. Associated attestation - Lindsay Neville [...] 2021 11:49 PM documented in this encounter [facility] 11-23-2021 Miscellaneous Notes Patient unable to tolerate Ativan. Discussed utilizing a low dose of Valium to help with anxiety and panic symptoms. Spoke with the patient on the phone to review effects and side effects of Valium. Patient has been scheduled for a follow up visit with this provider in 2 days. documented in this encounter [facility] 11-19-2021 Miscellaneous Notes Patient has been [...] Trupti Mcqueen LPN documented in this encounter [facility] 11-16-2021 Miscellaneous Notes TC to [facility] who says they have the order and the international account representative working on the pts machine has [...] Clementina Peña RN documented in this encounter [facility] 11-04-2021 Miscellaneous Notes Patient reports nausea from the increase in Venlafaxine dose. Prescribed Zofran as needed to help with nausea. documented in this encounter [facility] 10-31-2021 Instructions Lindsay Neville APRN.CNP - [...] - Call the National Suicide Hotline at 3-596-ETALNGG ( ) or 2-308-210-TALK (3804) - Text 4HOPE to 384998 Medication Update: Venlafaxine 150 mg XR - [...] may call the department appointment line at [phone] to schedule your appointment. -- Please call my nurse Yecenia at [phone] or send me a message in Scuttledog with any questions or concerns between appointments. documented in this encounter [facility] 10-31-2021 History of Presen t illness [...] which included preparing to see the patient, nhal-si-fspu patient care, completing clinical documentation, and counseling and educating the patient/family/caregiver, ordering medications/labs. Lindsay Neville APRN.SWAPNA October 31, 2021 2:59 PM This note was partially generated using Swarmforce voice recognition system. Note was reviewed for accuracy. There may be minor misspellings or grammar miscues with Swarmforce voice recognition. documented in this encounter [facility] 10-26-2021 Miscellaneous Notes Due to patient's insurance, PAP orders and documentation faxed to [facility]. Patient updated via . BARNEY Lewis Pt contacted office on 09/26, 10/11, and today 10/25 for results of PSG. In scanned documents under 09/28. Please advise. Thank you. BARNEY Lewis documented in this encounter [facility] 10-20-2021 Miscellaneous Notes Patient has been identified by name and date of : Yes Pharmacy phones for refill(s): Pending Prescriptions Disp Refills TOPIRAMATE 100 MG TABLET 30 tablet 2 Sig: TAKE 1 TABLET BY MOUTH EVERYDAY AT BEDTIME DEO: Yes Date of last office visit in Neurology: NAYELI 07/22/2021 with WN No appointment scheduled [facility] Notes: Assessment and Plan: ASSESSMENT/PLAN: 1. [...] where the testing was completed. TCH to [facility] who says PSG was completed on September 01. [facility] faxing over results. TC to patient with update but no answer. Left message to return call. If patient calls back, please advise that we have results but Dr. Li still has to review when he returns to the office. BARNEY Lewis documented in this encounter [facility] 09-26-2021 History of Presen t illness Narrative This note was created using Bet[employer]. Subjective Janell Thornton is a 26 year [...] Candace Navarro PA-C documented in this encounter [facility] 09-24-2021 History of Presen t illness [...] Rosario Ramon PA-C documented in this encounter [facility] 09-24-2021 History of Presen t illness Narrative This is an [facility] eVisit note for Janell Thornton eVisit/Questionnaire reviewed The chief complaint for the visit - Patient presents with: Eye Problem Recommendations/Treatment plan - See My Chart Message to patient Génesis De Guzman APRN.CNP Total time spent on e-Visit: 3 minutes documented in this encounter [facility] 09-20-2021 Instructions Malu Diana APRN.CNP - 09/20/2021 4:02 PM EDT Images from the original note were not included. Adult Sinusitis Patient Education What is Sinusitis? Sinusitis [rszp-alk-emfl-tis] is inflammation of the sinuses or swelling [...] help. You may be instructed to take ekfn-nrb-luyheyq medications for symptoms. including fever reducers acetaminophen or ibuprofen, nasal saline spray, cough and cold preparations and decongestants as prescribed by the physician, nurse practitioner or physician litigation legal assistant. Self-Care and Prevention: Rest Fluids for hydration Good hand washing Humidifier Avoid smoking and exposure to second hand smoke Avoid sick contacts documented in this encounter [facility] 09-20-2021 History of Presen t illness Narrative This note was created using [employer]. Subjective Janell Thornton is a 26 year [...] N/V/D. 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 No speech and language assistant was used. Nasal Congestion This is a [...] Malu Diana APRN.SWAPNA documented in this encounter [facility] 09-15-2021 Instructions Lindsay Neville APRN.CNP - [...] - Call the National Suicide Hotline at 6-165-VIFHKYS ( ) or 9-479-058-TALK (4506) - Text 4HOPE to 873150 Medication Update: 1. Venlafaxine 75 mg - take 1 tablet once daily with lunch. 2. Zoloft 100 mg - Starting September 22, reduce the Zoloft dose to 100 mg once daily. 3. Continue Buspar at the same dose. Next appointment: --Schedule in 4 weeks or sooner if needed -- You may call the department appointment line at [phone] to schedule your appointment. -- Please call my nurse Yceenia at [phone] or send me a message in Sc[employer]led[employer] with any questions or concerns between appointments. documented in this encounter [facility] 09-15-2021 History of Presen t illness [...] which included preparing to see the patient, [id number] patient care, completing clinical documentation, and counseling and educating the patient/family/caregiver, ordering medications/labs. Lindsay Neville APRN.ORGANIC CHEMISTRY PROFESSOR September 15, 2021 1:18 PM documented in this encounter [facility] 09-09-2021 Miscellaneous Notes Patient has been identified by name and date of : Yes Pending Prescriptions Disp Refills VENLAFAXINE 37.5 MG TABLET 30 tablet 0 Sig: Take 1 tablet by mouth daily with lunch. DEO: No RX INSTRUCTIONS: Patient aware RX will be sent to pharmacy. No need to notify patient. Follow up 09/15/2021. Yecenia Singh LPN documented in this encounter [facility] 09-09-2021 Miscellaneous Notes Patient has been [...] advise. Alla Gonzalez documented in this encounter [facility] 08-22-2021 Miscellaneous Notes Patient updated with providers message below via My Chart. BARNEY Lewis MRI brain per report was unremarkable. Timmy Li MD The patient canceled the sleep study and she isn't scheduled for any follow up appointments. documented in this encounter [facility] 08-11-2021 History of Presen t illness [...] Exam(s) Completed: Head: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 Requested Visits Authorized [id number] Authorized PCP Requested Referral 2 01/04/2023 1 1 Specialty Diagnoses / Procedures Referred By Contac t Referred To Contact MR IMAGING Diagnoses Family history of ischemic heart disease and other diseases of the circulatory system Chronic mixed headache syndrome Procedures MRI BRAIN WO/W IVCON MRI BRAIN BRAIN STEM W/O W/CONTRAST MATERIAL Timmy Li Jr., MD [address] [facility] [address] [place] [address] Mr Imaging Referral ID Status Reason Start Date Expiration Date Visits Requested Visits Authorized [id number] Additional Clinical Info Needed Auto-Generat ed Referral 07/22/2021 08/21/2022 1 1 Specialty Diagnoses / Procedures Referred By Contac t Referred To Contact Diagnoses Sleep apnea, unspecified type Procedures CONSULT TO PSYCHIATRY OFFICE/OUTPATIENT [facility] [address] Byrnes MD [address] [place] [address] Referral ID Status Reason Start Date Expiration Date Visits Requested Visits Authorized [id number] Pending Review PCP Requested Referral 07/15/2021 07/15/2022 1 1 Health Concerns Infection Onset Date Last Indicated Resolved Time COVID-19 Rule-Out 04/21/2022 04/21/2022 Infection Onset Date Last Indicated Resolved Time COVID-19 Rule-Out 04/21/2022 04/21/2022 04/22/2022 4:58 AM EST Additional Source Comments INFORMATION SOURCE (unrecogn ized section and content) DATE CREATED AUTHOR AUTHOR'S ORGANIZ ATION 06/09/2021 [facility] DATE CREATED AUTHOR AUTHOR'S ORGANIZ ATION 05/25/2022 [facility] DATE CREATED AUTHOR AUTHOR'S ORGANIZ ATION 07/20/2022 [facility] ([place]) DATE CREATED AUTHOR AUTHOR'S ORGANIZ ATION 03/08/2023 [facility] Source Comments (unrecognize d section and content) In the event this informatio n is protected by the Federal Confidentiality of Alcohol and Drug Abuse Patient Records regulations: The Federal rules restrict any use of the information to criminally investigate or prosecute any alcohol or drug abuse patient.[facility] event this information is protected by the Federal Confidentiality of Alcohol and Drug Abuse Patient Records regulations: The Federal rules restrict any use of the information to criminally investigate or prosecute any alcohol or drug abuse patient.[facility] the event this information is protected by the Federal Confidentiality of Alcohol and Drug Abuse Patient Records regulations: The Federal rules restrict any use of the information to criminally investigate or prosecute any alcohol or drug abuse patient.[facility] the event this information is protected by the Federal Confidentiality of Alcohol and Drug Abuse Patient Records regulations: The Federal rules restrict any use of the information to criminally investigate or prosecute any alcohol or drug abuse patient.[facility] the event this information is protected by the Federal Confidentiality of Alcohol and Drug Abuse Patient Records regulations: The Federal rules restrict any use of the information to criminally investigate or prosecute any alcohol or drug abuse patient.[facility] the event this information is protected by the Federal Confidentiality of Alcohol and Drug Abuse Patient Records regulations: The Federal rules restrict any use of the information to criminally investigate or prosecute any alcohol or drug abuse patient.[facility] the event this information is protected by the Federal Confidentiality of Alcohol and Drug Abuse Patient Records regulations: The Federal rules restrict any use of the information to criminally investigate or prosecute any alcohol or drug abuse patient.[facility] the event this information is protected by the Federal Confidentiality of Alcohol and Drug Abuse Patient Records regulations: The Federal rules restrict any use of the information to criminally investigate or prosecute any alcohol or drug abuse patient.[facility] the event this information is protected by the Federal Confidentiality of Alcohol and Drug Abuse Patient Records regulations: The Federal rules restrict any use of the information to criminally investigate or prosecute any alcohol or drug abuse patient.[facility] the event this information is protected by the Federal Confidentiality of Alcohol and Drug Abuse Patient Records regulations: The Federal rules restrict any use of the information to criminally investigate or prosecute any alcohol or drug abuse patient.[facility] the event this information is protected by the Federal Confidentiality of Alcohol and Drug Abuse Patient Records regulations: The Federal rules restrict any use of the information to criminally investigate or prosecute any alcohol or drug abuse patient.[facility] the event this information is protected by the Federal Confidentiality of Alcohol and Drug Abuse Patient Records regulations: The Federal rules restrict any use of the information to criminally investigate or prosecute any alcohol or drug abuse patient.[facility] the event this information is protected by the Federal Confidentiality of Alcohol and Drug Abuse Patient Records regulations: The Federal rules restrict any use of the information to criminally investigate or prosecute any alcohol or drug abuse patient.[facility] the event this information is protected by the Federal Confidentiality of Alcohol and Drug Abuse Patient Records regulations: The Federal rules restrict any use of the information to criminally investigate or prosecute any alcohol or drug abuse patient.[facility] the event this information is protected by the Federal Confidentiality of Alcohol and Drug Abuse Patient Records regulations: The Federal rules restrict any use of the information to criminally investigate or prosecute any alcohol or drug abuse patient.[facility] the event this information is protected by the Federal Confidentiality of Alcohol and Drug Abuse Patient Records regulations: The Federal rules restrict any use of the information to criminally investigate or prosecute any alcohol or drug abuse patient.[facility] the event this information is protected by the Federal Confidentiality of Alcohol and Drug Abuse Patient Records regulations: The Federal rules restrict any use of the information to criminally investigate or prosecute any alcohol or drug abuse patient.[facility] the event this information is protected by the Federal Confidentiality of Alcohol and Drug Abuse Patient Records regulations: The Federal rules restrict any use of the information to criminally investigate or prosecute any alcohol or drug abuse patient.[facility] the event this information is protected by the Federal Confidentiality of Alcohol and Drug Abuse Patient Records regulations: The Federal rules restrict any use of the information to criminally investigate or prosecute any alcohol or drug abuse patient.[facility] the event this information is protected by the Federal Confidentiality of Alcohol and Drug Abuse Patient Records regulations: The Federal rules restrict any use of the information to criminally investigate or prosecute any alcohol or drug abuse patient.[facility] the event this information is protected by the Federal Confidentiality of Alcohol and Drug Abuse Patient Records regulations: The Federal rules restrict any use of the information to criminally investigate or prosecute any alcohol or drug abuse patient.[facility] the event this information is protected by the Federal Confidentiality of Alcohol and Drug Abuse Patient Records regulations: The Federal rules restrict any use of the information to criminally investigate or prosecute any alcohol or drug abuse patient.[facility] the event this information is protected by the Federal Confidentiality of Alcohol and Drug Abuse Patient Records regulations: The Federal rules restrict any use of the information to criminally investigate or prosecute any alcohol or drug abuse patient.[facility] the event this information is protected by the Federal Confidentiality of Alcohol and Drug Abuse Patient Records regulations: The Federal rules restrict any use of the information to criminally investigate or prosecute any alcohol or drug abuse patient.[facility] the event this information is protected by the Federal Confidentiality of Alcohol and Drug Abuse Patient Records regulations: The Federal rules restrict any use of the information to criminally investigate or prosecute any alcohol or drug abuse patient.[facility] the event this information is protected by the Federal Confidentiality of Alcohol and Drug Abuse Patient Records regulations: The Federal rules restrict any use of the information to criminally investigate or prosecute any alcohol or drug abuse patient.[facility] the event this information is protected by the Federal Confidentiality of Alcohol and Drug Abuse Patient Records regulations: The Federal rules restrict any use of the information to criminally investigate or prosecute any alcohol or drug abuse patient.[facility] the event this information is protected by the Federal Confidentiality of Alcohol and Drug Abuse Patient Records regulations: The Federal rules restrict any use of the information to criminally investigate or prosecute any alcohol or drug abuse patient.[facility] the event this information is protected by the Federal Confidentiality of Alcohol and Drug Abuse Patient Records regulations: The Federal rules restrict any use of the information to criminally investigate or prosecute any alcohol or drug abuse patient.[facility] the event this information is protected by the Federal Confidentiality of Alcohol and Drug Abuse Patient Records regulations: The Federal rules restrict any use of the information to criminally investigate or prosecute any alcohol or drug abuse patient.[facility] the event this information is protected by the Federal Confidentiality of Alcohol and Drug Abuse Patient Records regulations: The Federal rules restrict any use of the information to criminally investigate or prosecute any alcohol or drug abuse patient.[facility] the event this information is protected by the Federal Confidentiality of Alcohol and Drug Abuse Patient Records regulations: The Federal rules restrict any use of the information to criminally investigate or prosecute any alcohol or drug abuse patient.[facility] the event this information is protected by the Federal Confidentiality of Alcohol and Drug Abuse Patient Records regulations: The Federal rules restrict any use of the information to criminally investigate or prosecute any alcohol or drug abuse patient.[facility] the event this information is protected by the Federal Confidentiality of Alcohol and Drug Abuse Patient Records regulations: The Federal rules restrict any use of the information to criminally investigate or prosecute any alcohol or drug abuse patient.[facility] the event this information is protected by the Federal Confidentiality of Alcohol and Drug Abuse Patient Records regulations: The Federal rules restrict any use of the information to criminally investigate or prosecute any alcohol or drug abuse patient.[facility] the event this information is protected by the Federal Confidentiality of Alcohol and Drug Abuse Patient Records regulations: The Federal rules restrict any use of the information to criminally investigate or prosecute any alcohol or drug abuse patient.[facility]In the event this information is protected by the Federal Confidentiality of Alcohol and Drug Abuse Patient Records regulations: The Federal rules restrict any use of the information to criminally investigate or prosecute any alcohol or drug abuse patient.[facility]In the event this information is protected by the Federal Confidentiality of Alcohol and Drug Abuse Patient Records regulations: The Federal rules restrict any use of the information to criminally investigate or prosecute any alcohol or drug abuse patient.[facility]In the event this information is protected by the Federal Confidentiality of Alcohol and Drug Abuse Patient Records regulations: The Federal rules restrict any use of the information to criminally investigate or prosecute any alcohol or drug abuse patient.[facility]In the event this information is protected by the Federal Confidentiality of Alcohol and Drug Abuse Patient Records regulations: The Federal rules restrict any use of the information to criminally investigate or prosecute any alcohol or drug abuse patient.[facility]In the event this information is protected by the Federal Confidentiality of Alcohol and Drug Abuse Patient Records regulations: The Federal rules restrict any use of the information to criminally investigate or prosecute any alcohol or drug abuse patient.[facility]In the event this information is protected by the Federal Confidentiality of Alcohol and Drug Abuse Patient Records regulations: The Federal rules restrict any use of the information to criminally investigate or prosecute any alcohol or drug abuse patient.[facility] the event this information is protected by the Federal Confidentiality of Alcohol and Drug Abuse Patient Records regulations: The Federal rules restrict any use of the information to criminally investigate or prosecute any alcohol or drug abuse patient.[facility] the event this information is protected by the Federal Confidentiality of Alcohol and Drug Abuse Patient Records regulations: The Federal rules restrict any use of the information to criminally investigate or prosecute any alcohol or drug abuse patient.[facility]In the event this information is protected by the Federal Confidentiality of Alcohol and Drug Abuse Patient Records regulations: The Federal rules restrict any use of the information to criminally investigate or prosecute any alcohol or drug abuse patient.[facility] the event this information is protected by the Federal Confidentiality of Alcohol and Drug Abuse Patient Records regulations: The Federal rules restrict any use of the information to criminally investigate or prosecute any alcohol or drug abuse patient.[facility]In the event this information is protected by the Federal Confidentiality of Alcohol and Drug Abuse Patient Records regulations: The Federal rules restrict any use of the information to criminally investigate or prosecute any alcohol or drug abuse patient.[facility]In the event this information is protected by the Federal Confidentiality of Alcohol and Drug Abuse Patient Records regulations: The Federal rules restrict any use of the information to criminally investigate or prosecute any alcohol or drug abuse patient.[facility]In the event this information is protected by the Federal Confidentiality of Alcohol and Drug Abuse Patient Records regulations: The Federal rules restrict any use of the information to criminally investigate or prosecute any alcohol or drug abuse patient.[facility] Reason for Visit (unrecogniz ed section and content) Reason Comments Established Patient discuss FMLA for jim vinny and sinus/allergies Reason Comments New Neur Headache Consult for Migraine s Specialty Diagnoses / Procedures Referred By Contmarina t Referred To Contact Diagnoses Migraine without status migrainosus, not intractable, unspecified migraine type Procedures CONSULT TO HEADACHE CLINIC OFFICE/OUTPATIENT [facility] 60[address] Luis Antonio Lovell, KARMEN.[facility] [address] [place] [address] Referral ID Status Reason Start Date Expiration Date V isits Requested Visits Authorized [id number] Closed PCP Requested Referral 05/03/2021 05/03/2022 1 1 Reason Comments Orders Reason Comments New Patient Evaluation Specialty Diagnoses / Procedures Referred By Contmarina t Referred To Contact MR IMAGING Diagnoses Family history of ischemic heart disease and other diseases of the circulatory system Chronic mixed headache syndrome Procedures MRI BRAIN WO/W IVCON MRI BRAIN BRAIN STEM W/O W/CONTRAST MATERIAL Timmy Li Jr., MD [address] [address] Mr Imaging Referral ID Status Reason Start Date Expiration Date V isits Requested Visits Authorized [id number] Closed Auto-Generate d Referral 07/22/2021 09/24/2021 1 [...] unspecified type Procedures CONSULT TO PSYCHIATRY OFFICE/OUTPATIENT [facility] [address] Byrnes MD [address] [place] [address] Referral ID Status Reason Start Date Expiration Date Visits Requested Visits Authorized [id number] Pending Review PCP Requested Referral 07/15/2021 07/15/2022 [...] Care Teams (unrecognized sec tion and content) Paperboard Boxes Estimator Relationship Specialty Start Date End Date Rd Byrnes MD [address] [place] [address] PCP - General Internal Medicine 03/31/13 Paperboard Boxes Estimator Relationship Specialty Start Date End Date Rd Byrnes MD [address] [place] [address] PCP - General Internal Medicine 03/31/13 Paperboard Boxes Estimator Relationship Specialty Start Date End Date Rd Byrnes MD [address] [place] [address] PCP - General Internal Medicine 03/31/13 Paperboard Boxes Estimator Relationship Specialty Start Date End Date Rd Byrnes MD [address] [facility] [place] [address] PCP - General Internal Medicine 03/31/13 Paperboard Boxes Estimator Relationship Specialty Start Date End Date Rd Byrnes MD [address] [place] [address] PCP - General Internal Medicine 03/31/13 Paperboard Boxes Estimator Relationship Specialty Start Date End Date Rd Byrnes MD [address] [place] [address] PCP - General Internal Medicine 03/31/13 Paperboard Boxes Estimator Relationship Specialty Start Date End Date Rd Byrnes MD [address] [place] [address] PCP - General Internal Medicine 03/31/13 Paperboard Boxes Estimator Relationship Specialty Start Date End Date Rd Byrnes MD [address] [place] [address] PCP - General Internal Medicine 03/31/13 Paperboard Boxes Estimator Relationship Specialty Start Date End Date Rd Byrnes MD [address] [place] [address] PCP - General Internal Medicine 03/31/13 Paperboard Boxes Estimator Relationship Specialty Start Date End Date Rd Byrnes MD [address] [place] [address] PCP - General Internal Medicine 03/31/13 [employer] Estimator Relationship Specialty Start Date End Date Rd Byrnes MD [address] [place] [address] PCP - General Internal Medicine 03/31/13 [employer] Box[employer] Estimator Relationship Specialty Start Date End Date Rd Byrnes MD [address] [place] [address] PCP - General Internal Medicine 03/31/13 Paperboard Boxes Estimator Relationship Specialty Start Date End Date Rd Byrnes MD [address] [place] [address] PCP - General Internal Medicine 03/31/13 [employer] Boxes Estimator Relationship Specialty Start Date End Date Rd Byrnes MD [address] [place] [address] PCP - General Internal Medicine 03/31/13 Paperboard Boxes Estimator Relationship Specialty Start Date End Date Rd Byrnes MD [address] [place], [place] [id number] PCP - General Internal Medicine 03/31/13 Paperboard Boxes Estimator Relationship Specialty Start Date End Date Rd Byrnes MD [address] [place], [place] [id number] [phone] PCP - General Internal Medicine 03/31/13 [employer] Boxes Estimator Relationship Specialty Start Date End Date Rd Byrnes MD [address] [place], [place] [address] PCP - General Internal Medicine 03/31/13 [employer]board Boxes Estimator Relationship Specialty Start Date End Date Rd Byrnes MD [address] [place] [address] PCP - General Internal Medicine 03/31/13 Paperboard Boxes Estimator Relationship Specialty Start Date End Date Rd Byrnes MD [address] [place], [place] [id number] [phone] PCP - General Internal Medicine 03/31/13 [employer]board Boxes Estimator Relationship Specialty Start Date End Date Rd Byrnes MD [address] [place], [place] [id number] PCP - General Internal Medicine 03/31/13 Care Team (unrecognized sect ion and content) Care Team Personnel Name: RD BYRNES MD Member Role: Primary Care Physician Address: Address: [address] [place] [address]- Name: ALIYA Mart Position: ED RN Member Role: ED RN Name: ZOILA SANTA DO Position: ED Physician Member Role: ED Physician Address: Address: [address] [place] [id number] PERTAINING TO PATIENTS WHO ARE [...] BE BASED ON THE PRIMARY CLINICAL RECORDS. [facility] provides no warranty or guarantee of the accuracy or completeness of information in this document.
--- NOTE | 2023-03-26 01:35 | EX.ED.DYSGE1 ---
HPI History of Present Illness Chief Complaint: Lower Extremity Injury Informant: patient and friend Narrative Narrative: Patient is a 28-year-old female with past medical history of anxiety. 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 She states over the past 2 to 3 days she has noticed right fifth toe swelling redness and pain and has concerned that it secondary to a repeat ingrown toenail and therefore comes in for evaluation [facility] Medical History Acute bronchitis, unspecified Acute pharyngitis, unspecified Anxiety Cephalgia URI (upper respiratory infection) Home Medications buspirone 15 mg tablet 15 mg PO TID 07/15/20 [History Last Taken Unknown] sertraline 100 mg tablet 100 mg PO DAILY 07/15/20 [History Last Taken Unknown] topiramate 25 mg tablet (Topamax) 25 mg PO DAILY 07/15/20 [History Last Taken Unknown] amoxicillin 875 mg-potassium clavulanate 125 mg tablet 1 tab PO BID 7 days #14 tabs 03/26/23 [Rx Last Taken Unknown] oxycodone-acetaminophen 5 mg-325 mg tablet (Percocet) 1 tab PO Q6H PRN pain 3 days #12 tabs 03/26/23 [Rx Last Taken Unknown] Allergy/AdvReac Type Severity Reaction Status Date / Time No Known Allergies Allergy Verified 03/26/23 00:33 Family History Other COPD (chronic obstructive pulmonary disease) Diabetes Emphysema of lung Heart disease Surgical History History of tonsillectomy and adenoidectomy Social History Smoking Status: Current every day smoker tobacco type: e-cigarettes ROS ROS ED Constitutional Constitutional ED: Denies chills or fever(s) ENT ENT ED: Denies sore throat Cardiovascular Cardiovascular: Denies chest pain Respiratory/Chest Respiratory/Chest: Denies cough or dyspnea Gastrointestinal Gastrointestinal: Denies abdominal pain, diarrhea, nausea or vomiting Genitourinary Genitourinary ED: Denies dysuria Musculoskeletal Musculoskeletal: Reports other Details: Positive right fifth toe pain Integumentary Reports other Details: Positive right fifth toe redness and swelling ; Denies rash Neurologic Neurologic: Denies headache(s) Hematologic/Lymphatic Hematologic/Lymphatic: Denies easy bleeding or easy bruising EXAM Physical Exam Const Vital Signs: 03/26/23 00:33 03/26/23 02:02 Temperature 98.5 F Temperature Source Temporal Pulse Rate 88 76 Respiratory Rate 18 16 Blood Pressure 142/88 H Blood Pressure Mean 106 Pulse Ox 99 97 Oxygen Delivery Method Room Air Positive well nourished, well developed and obese General Appearance ED: well developed Nutritional Appearance: obese HEENT HEENT Narrative: Normocephalic atraumatic Eyes PERRL and EOMs intact bilaterally General Eye ED: Negative for scleral icterus Neck supple Neck Narrative: No nuchal rigidity or meningeal signs Resp normal respiratory effort and clear to auscultation bilaterally Cardio regular rate and regular rhythm Extremity Extremity Narrative: Bilateral lower extremities are neurovascularly intact The patient's right fifth toe is erythematous and swollen with asymmetric warmth and soft tissue discoloration concerning/consistent with pus formation along the nailbed most consistent with paronychia and cellulitis. No lymphangitic streaking noted. Crepitance palpated. Neuro oriented x3, CN's II-XII intact bilaterally and no sensory deficits noted Sensorium / Orientation: alert Motor Exam: strength 5/5 throughout Psych mental status grossly normal Skin Skin Narrative: Soft tissue changes around the right fifth toe as documented above MDM MDM MDM Narrative Medical decision making narrative: Patient presented to the ER mildly hypertensive otherwise with stable vitals. She reported no trauma but spontaneous development of redness and swelling to the right fifth toe that worsened over the last few days. She denied any history of immunosuppression. Differential diagnosis is for ingrown toenail versus paronychia versus osteomyelitis. As the patient is afebrile and does not have history of immunosuppression I have low concern for osteomyelitis and her physical exam does not suggest ingrown toenail. At this time I do not feel need for laboratory imaging studies based on her vitals and physical exam. The patient has a paronychia by exam and therefore had the area incised and drained as documented below. She denies signs of systemic infection there is no need for further workup and he is otherwise safe for discharge Patient had a right fifth toe cleaned with chlorhexidine. She was given a digital block using 8 ml of 1% lidocaine without epinephrine. A #11 blade was then used to make an incision just above the nail into the soft tissue of the toe and there was expression of blood and purulent material. Patient tolerated the procedure well without complication History & Record Review Discussion w/independent historian: Patient and Friend Discharge Plan Triage Chief Complaint: Lower Extremity Injury ED Provider: Simeon Esteban Dx/Rx/DC Orders Clinical Impression: Paronychia of fifth toe of right foot Instructions: ED Paronychia of the Finger or Toe Prescriptions: New amoxicillin-pot clavulanate 875-125 mg tablet 1 tab PO BID 7 Days Qty: 14 0RF oxycodone-acetaminophen [Percocet] 5-325 mg tablet 1 tab PO Q6H PRN (Reason: pain) 3 Days Qty: 12 0RF No Action sertraline 100 mg tablet 100 mg PO DAILY topiramate [Topamax] 25 mg tablet 25 mg PO DAILY buspirone 15 mg tablet 15 mg PO TID Primary Care Provider: Care Physician,No Primary Referrals: Cipriano French DPM [Med Staff - Active Staff] - Care Physician,No Primary [Primary Care Provider] - Disposition Disposition: Home, Self Care Discharge Date/Time: 03/26/23 02:03
[2023-03-26] MEDS: Amox/Clavulanate 875 MG Tablet PO (01:50)
[2023-03-26 02:02] VITALS: PULSE 76; RESP 16; O2SAT 97
== END 2023-03-26 02:03 | disposition home or self-care (01) ==
PROVIDERS: Emergency Provider Emergency Medicine; Visit Provider Emergency Medicine
DX: L03.031 Cellulitis of right toe (principal); F17.290 Nicotine dependence, other tobacco product, uncomplicated
CPT/HCPCS: 10060; 99282